=== PATIENT | female | born 1995 | race Caucasian/White ===

== ENCOUNTER 2021-12-22 16:42 | Emergency (ER) | payer BC, SELFPAY ==
[2021-12-22 16:49] VITALS: BP 122/66; PULSE 117; RESP 18; TEMP 38.3; O2SAT 98
--- NOTE | 2021-12-22 17:04 | ED.URI ---
HPI - URI/Sore Throat General Chief Complaint: Upper Respiratory Infection Stated Complaint: nausea and sore throat Time Seen by Provider: 12/22/21 17:07 Source: patient and RN notes reviewed History of Present Illness HPI Narrative: Patient is a 26-year-old female who presents the urgent care with complaints of sore throat, fever, chills. Patient states that it started 2 days ago and now she has had 1 episode of vomiting and nausea. Denies of any known exposures to COVID or strep. States that she has not been vaccinated. No other acute complaints. No acute distress noted. Patient aware of the plan of care. Some parts of this dictation were generated by voice recognition software and may contain typographical and/or grammatical inaccuracies. Related Data Home Medications Medication Instructions Recorded Confirmed flash glucose sensor [FreeStyle 12/22/21 12/22/21 Karina 2 Sensor] insulin pump cartridge [Omnipod 12/22/21 12/22/21 Dash Insulin Pod] Allergies Allergy/AdvReac Type Severity Reaction Status Date / Time No Known Allergies Allergy Unknown Verified 12/22/21 17:21 Review of Systems Review of Systems: CONSTITUTIONAL: Reports a fever, chills, sweats EYES: Denies visual changes, redness, or discharge. ENT: Denies rhinorrhea, congestion, otalgia. Reports of sore throat CARDIOVASCULAR: Denies chest pain, palpitations, or edema. RESPIRATORY: Denies cough or dyspnea. GASTROINTESTINAL: Reports of nausea with one episode of vomiting GENITOURINARY: Denies dysuria or hematuria. SKIN: Denies rash or itching. MUSCULOSKELETAL: Denies back pain, joint pain, or myalgia. NEUROLOGIC: Denies headache, numbness, or weakness. All other systems reviewed are negative, except as documented in HPI. [facility] Past Medical History Medical History (Updated 12/22/21 @ 17:32 by JULIO Quach) Musculoskeletal disorder Surgical History Surgical History History of orthopedic surgery lt knee Social History Social History Smoking status: Never smoker Second hand tobacco smoke exposure: No Alcohol intake: never Gender identity (if verbalized by the patient): Female Comments At the time of my signature, I reviewed and agree with the nursing past medical, surgical, social, and family history. There is no relevant family history pertinent to the patient complaint. Exam Narrative: GENERAL: This is a well-nourished, well-developed patient, in no apparent distress. HEAD: normocephalic, atraumatic. EYES: PERRL. Sclera clear/white. Vision is grossly intact. EARS: External ears normal, auditory canals clear and without drainage, TMs normal without perforation. Hearing grossly intact. NOSE: External nose normal with no obvious nasal discharge, nares without redness, no rhinorrhea. THROAT: Mucous membranes moist. Moderate erythema to the posterior oropharynx with mild bilateral tonsillar edema with exudate to the right NECK: Neck supple, non-tender without lymphadenopathy CARDIOVASCULAR: Regular rate and rhythm without murmurs, gallops, or rubs. RESPIRATORY: Clear to auscultation. Breath sounds equal bilaterally. No wheezes, rales, or rhonchi. SKIN: warm, intact with no suspicious lesions or rash, good texture and turgor. NEURO: awake, alert, and oriented to person, place and time. There were no obvious focal neurologic abnormalities. EXTREMITIES: No clubbing, cyanosis, or edema. Course Course Level of Care: Express Care Visit Vital Signs Vital signs: Vital Signs Temperature 100.9 F H 12/22/21 16:49 Pulse Rate 117 H 12/22/21 16:49 Respiratory Rate 18 12/22/21 16:49 Blood Pressure 122/66 12/22/21 16:49 Pulse Oximetry 98 12/22/21 16:49 Temperature 100.9 F H 12/22/21 16:49 Pulse Rate 117 H 12/22/21 16:49 Respiratory Rate 18 12/22/21 16:49 Blood Pressure 122/66 12/22/21 16:4
[2021-12-24 19:02] LABS: SARS-CoV-2 RNA PCR Positive
== END 2021-12-22 17:35 | disposition home or self-care (01) ==
PROVIDERS: Emergency Provider Nurse Practitioner Family; PCP Family Medicine
DX: U07.1 COVID-19 (principal); E11.9 Type 2 diabetes mellitus without complications; Z96.41 Presence of insulin pump (external) (internal)
CPT/HCPCS: 87081; 87880; 99213; C9803; G0463; U0003; U0005

== ENCOUNTER 2022-09-04 18:11 | Emergency (ER) | payer BC, SELFPAY ==
[2022-09-04 18:17] VITALS: BP 96/57; PULSE 56; RESP 20; O2SAT 97
[2022-09-04 20:09] VITALS: BP 114/65; PULSE 70; RESP 18; O2SAT 100
--- NOTE | 2022-09-04 20:15 | PC.NURSE ---
Reports feeling better and now not bleeding so leaving.
== END 2022-09-04 20:15 | disposition left against medical advice (07) ==
PROVIDERS: PCP Family Medicine
DX: N93.9 Abnormal uterine and vaginal bleeding, unspecified (principal)
CPT/HCPCS: 99199

== ENCOUNTER 2022-09-20 12:33 | Outpatient (CLI) | payer BC, SELFPAY ==
--- NOTE | 2022-09-20 12:49 | ECG_ITS ---
Measurements Intervals [place] Rate: 74 P: 23 KS: 134 QRS: 29 QRSD: 88 T: 28 QT: 364 QTc: 406 Interpretive Statements SINUS RHYTHM NORMAL ELECTROCARDIOGRAM COMPARED TO ECG 10/12/2019 21:12:54 NO SIGNIFICANT CHANGES Electronically Signed On 09-20-2022 14:12:06 CDT by Satya Mariscal M.D.
[2022-09-20 13:14] LABS: Anion Gap 13 mmol/L (8-16); Blood Urea Nitrogen 12 mg/dL (7-17); Carbon Dioxide 28 mmol/L (22-30); Chloride 99 mmol/L (98-107); Estimated Glomerular Filt Rate > 60; Glucose 151 mg/dL (65-110); Potassium 4.1 mmol/L (3.4-5.0); Sodium 140 mmol/L (137-145)
== END 2022-09-20 12:34 | disposition home or self-care (01) ==
LOC: ANHSURGERY 12:37
PROVIDERS: Anesthesiology; PCP Family Medicine; Visit Provider Obstetrics & Gynecology
DX: E10.9 Type 1 diabetes mellitus without complications (principal); Z01.818 Encounter for other preprocedural examination
CPT/HCPCS: 36415; 80048; 93005

== ENCOUNTER 2022-09-25 01:11 | Day surgery (SDC) | payer BC, SELFPAY ==
[2022-09-19 10:51] VITALS: BMI 34.1
--- NOTE | 2022-09-19 11:13 | PC.NURSE ---
Report to the Outpatient Waiting Room, entrance under the green pavilion located off [facility], at time __8:30AM on date __09/25/22 . Planned Procedure Time: __10:30AM . Time changes happen often and if your time is changed the preop area will call you the afternoon before. - You and your visitor will be asked to self-screen and do not enter if you have any COVID symptoms. - We encourage only one visitor and NO visitors under age 16 are allowed at this time. Your visitor will receive communication by the phone number that is given day of service. - The patient visitor is requested to social distance or may leave the building when not with patient due to restrictions. - A mask is required within the hospital. Patients may have clear liquids (water, carbonated beverages, clear teas, apple juice) until 3 hours prior to surgery with a maximum of 20 ounces. - No food from midnight until time of surgery Take the following medications with a SIP of water the morning of surgery: __INSULIN PUMP ON BASAL RATE Medications to discontinue per physician NONE Date to take last dose Please no make-up, nail rwandan, hairspray, perfume, deodorant, or body powder the day of surgery. No jewelry (including any body piercings) or valuables the day of surgery, leave them at home. Please take a shower or bath the night before, or the morning of, surgery with an antibacterial soap. Wear comfortable, loose fitting clothing. Children are encouraged to wear pajamas. - Jewelry must be removed prior to entering the operating room. Rings and piercings that are not removed may be cut off. - The hospital will not accept responsibility for valuables. - Please leave all valuables, including medications, at home the day of surgery. If you are going home after surgery, a licensed car driver must drive you home. - NO public transportation without another adult. - We recommend that an adult stay with you for 24 hours following discharge. - We also recommend that you do not drive, make important decision, drink alcoholic beverages, or take any drugs that were not prescribed by your health care provider for at least 24 hours after your discharge time. Follow any additional instructions given to you from your surgeon. If you or anyone in your household have experienced Covid symptoms in the past week, please notify your surgeon or the nurse liaison at the phone number below for possible testing. Telephone instructions given to ___PATIENT and asked if any additional questions and then verbalized understanding. Patient advised to call surgeon office or pre surgery nurse liaison [phone] if any additional questions.
[2022-09-25] VITALS (9 sets, daily range): BP systolic 94–117; BP diastolic 57–74; PULSE 60–87; RESP 10–16; TEMP 36.2–36.7; O2SAT 96–100
[2022-09-25] MEDS: LACTATED RINGERS 1,000 ML 30 ML IV CONT (09:07)
[2022-09-25] MEDS: ACETAMINOPHEN 500 MG TABLET 1000 MG PO (09:07)
[2022-09-25 09:10] LABS: Glucose Point of Care 123 mg/dl (65-105)
--- NOTE | 2022-09-25 09:22 | WPDANESEPPF ---
Anes - Initial Pre Proc Eval Procedure: Operation Date: 09/25/22 10:30 Proposed Procedures p Excision of Bartholin Gland or Cyst - David Aragon MD Date/Time: 09/25/22 09:22 Surgeon: David Aragon MD Pre Op Diagnosis: Bartholin gland Patient Data Age: 27 Gender: F Height: 1.55 m Weight: 88.5 kg Last Vital Signs Temp 36.7 C 09/25/22 08:49 Pulse 87 09/25/22 08:49 Resp 16 09/25/22 08:49 BP 109/57 L 09/25/22 08:49 Pulse Ox 100 09/25/22 08:49 O2 Del Method Room Air 09/25/22 08:49 Allergies Allergy/AdvReac Type Severity Reaction Status Date / Time No Known Allergies Allergy Unknown Verified 09/25/22 08:40 Home Medications Medication Instructions Recorded Confirmed Type flash glucose sensor (FreeStyle 12/22/21 12/22/21 History Karina 2 Sensor kit) insulin pump cartridge (Omnipod 12/22/21 12/22/21 History Dash Insulin Pod) flash glucose sensor (FreeStyle 09/19/22 09/19/22 History Karina 2 Sensor kit) insulin lispro 100 unit/mL 0.8 unit subcut DIRECTED 09/19/22 09/19/22 History subcutaneous cartridge (Humalog U-100 Insulin) Laboratory Tests 09/25/22 09:06 POC Capillary Glucose 123 mg/dl H mg/dl (65-105) Patient hx anesthesia problems: none Family hx anesthesia problems: none Results Review: All pre-operative results and documents have been reviewed as part of the pre-operative evaluation. [facility] Past Medical History Medical History (System 05/10/22 @ 13:05 by Uvaldo Miller) Musculoskeletal disorder Surgical History Surgical History History of orthopedic surgery lt knee Social History Social History Smoking status: Never smoker Second hand tobacco smoke exposure: No Alcohol intake: current Substance use: never Living arrangements: with family Additional living arrangements comments: SISTER Gender identity (if verbalized by the patient): Female Spiritual care concerns: No Anes - Eval Final PreProcedure Day of Procedure 09/25/22 09:22 Patient weight: obese Heart: regular rate and rhythm Lungs: clear to auscultation Airway: Mallampati scale class II Neurological: alert and oriented Last oral intake: >/= 8 hours ASA classification: III Emergent: no Anesthetic plan: proceed Anesthesia type and monitoring: general LMA and standard monitoring Results Review: All pre-operative results and documents have been reviewed as part of the pre-operative evaluation. Informed Consent: The patient's anesthetic plan and its attendant risks and benefits were discussed with the patient/family/POA. Questions were solicited and answers provided to the satisfaction of the patient/family/POA.
--- NOTE | 2022-09-25 10:07 | WPDHPUPDATE1 ---
History and Physical Update Update Date/Time: 09/25/22 10:07 History and Physical has been reviewed, including an updated exam of the patient. There are NO changes in the patient's condition. Risks, benefits, and alternatives have been discussed and questions answered. Patient agrees to proceed with procedure.
[2022-09-25] MEDS: fentaNYL CITRATE INJ (*CRX) 100 MCG/2 ML VIAL 25 MCG IV PUSH ×8 (11:20→11:55)
--- NOTE | 2022-09-25 11:22 | W.PM.PROC2 ---
Procedure Note - Detailed Date of Procedure 09/25/22 Pre-op Diagnosis Bartholin gland Cyst, vulvar pain Post-op Diagnosis Same Procedure Performed excision of Bartholin's gland and Bartholin's gland cyst Surgeon David Aragon MD Indications vulvar pain Findings 3 cm Bartholin cyst with nodular base Description of Procedure the patient was taken to the operating room. She was prepped and draped in the dorsal lithotomy position. The right vulvar area was injected around the Bartholin's gland cyst. A skin incision was made with the scalpel. It was about 4-5 cm. Using sharp and blunt dissection the vulvar cyst was isolated. Cautery was used to make hemostatic. At the base there was a nodular area. Hemostats were placed behind the nodular area on the pedicle. The mass and cyst were Removed as the pedicle was transected. Sutures were placed around the pedicle. Running lock sutures were placed to fill the defect and made hemostatic at the base. 2 Layers of suture were placed up to the subcutaneous surface. These were 2-0 Vicryl. The skin was closed with interrupted 2-0 Vicryl. It was hemostatic with little skin puckering. Patient tolerated procedure well. She was She was taken to the recovery room in stable condition. Sponge lap needle counts were correct x2. Estimated Blood Loss -75.0 Drains No Packing No Pathology Yes
[2022-09-25] MEDS: HYDROmorphone HCL INJ (*CRX) 1 MG/ML SYR 0.25 MG IV PUSH (12:09)
[2022-09-25 12:24] LABS: Glucose Point of Care 132 mg/dl (65-105)
[2022-09-25] MEDS: oxyCODONE HCL (*CRX) 5 MG TAB IR PO (12:40)
== END 2022-09-25 13:22 | disposition home or self-care (01) ==
PROVIDERS: PCP Family Medicine; Visit Provider Obstetrics & Gynecology
PROC: (CPT 56740; principal; 2022-09-25 10:30)
DX: N75.0 Cyst of Bartholin's gland (principal); E10.9 Type 1 diabetes mellitus without complications; Z79.4 Long term (current) use of insulin; Z96.41 Presence of insulin pump (external) (internal); E66.9 Obesity, unspecified; Z68.36 Body mass index [BMI] 36.0-36.9, adult
CPT/HCPCS: 56740; 82948; 88305; A9270; J1100; J1170; J1885; J2250; J2405; J2704; J3010; J7120

== ENCOUNTER 2023-01-22 10:09 | Emergency (ER) | payer OTHER, MEDICAID, SELFPAY ==
--- NOTE | 2023-01-22 10:21 | ED.EAR ---
HPI - Ear Problem General Chief complaint: Upper Respiratory Infection Stated complaint: Left Ear Pain/Cold Symtoms Source: patient and RN notes reviewed History of Present Illness HPI Narrative: 27-year-old female presents to urgent care with complaints of left ear pain, congestion, facial pressure, a slight headache. Patient reports some nausea but states that is normal throughout this 1st trimester for her. Patient states the symptoms have been going on since yesterday. Denies any fevers, chills, chest pain, shortness of breath, abdominal pain, or dysuria. 1 para 0. Some parts of this dictation were generated by voice recognition software and may contain typographical and/or grammatical inaccuracies. Related Data Home Medications Medication Instructions Recorded Confirmed flash glucose sensor (FreeStyle 12/22/21 12/22/21 Karina 2 Sensor kit) insulin pump cartridge (Omnipod 12/22/21 12/22/21 Dash Insulin Pod) flash glucose sensor (FreeStyle 09/19/22 09/19/22 Karina 2 Sensor kit) insulin lispro 100 unit/mL 0.8 unit subcut DIRECTED 09/19/22 01/22/23 subcutaneous cartridge (Humalog U-100 Insulin) folic acid 1 mg tablet 1 mg DAILY 01/22/23 01/22/23 Allergies Allergy/AdvReac Type Severity Reaction Status Date / Time No Known Allergies Allergy Unknown Verified 01/22/23 10:26 Review of Systems Review of Systems: CONSTITUTIONAL: DENIES FEVER, CHILLS, OR SWEATS. EYES: DENIES VISUAL CHANGES, REDNESS, OR DISCHARGE. ENT: Reports oTALGIA CARDIOVASCULAR: DENIES CHEST PAIN, PALPITATIONS, OR EDEMA. RESPIRATORY: DENIES COUGH OR DYSPNEA. GASTROINTESTINAL: DENIES ABDOMINAL PAIN, NAUSEA, VOMITING, OR DIARRHEA. GENITOURINARY: DENIES DYSURIA OR HEMATURIA. SKIN: DENIES RASH OR ITCHING. MUSCULOSKELETAL: DENIES BACK PAIN, JOINT PAIN, OR MYALGIA. NEUROLOGIC: DENIES HEADACHE, NUMBNESS, OR WEAKNESS. [facility] Past Medical History Medical History (Updated 01/22/23 @ 10:43 by Tracy Vicente APRN) Musculoskeletal disorder Surgical History Surgical History History of orthopedic surgery lt knee Social History Social History Smoking status: Never smoker Second hand tobacco smoke exposure: No Alcohol intake: current Substance use: never Living arrangements: with family Additional living arrangements comments: SISTER Gender identity (if verbalized by the patient): Female Spiritual care concerns: No Comments AT THE TIME OF MY SIGNATURE, I REVIEWED AND AGREE WITH THE NURSING PAST MEDICAL, SURGICAL, SOCIAL, AND FAMILY HISTORY. THERE IS NO RELEVANT FAMILY HISTORY PERTINENT TO THE PATIENT COMPLAINT. Exam Narrative: GENERAL: THIS IS A WELL-NOURISHED, WELL-DEVELOPED PATIENT, IN NO APPARENT DISTRESS. HEAD: NORMOCEPHALIC, ATRAUMATIC. EYES: PERRL. SCLERA CLEAR/WHITE. VISION IS GROSSLY INTACT. EARS: EXTERNAL EARS NORMAL, AUDITORY CANALS CLEAR AND WITHOUT DRAINAGE, TMS NORMAL WITHOUT PERFORATION. HEARING GROSSLY INTACT. NOSE: EXTERNAL NOSE NORMAL WITH NO OBVIOUS NASAL DISCHARGE, NARES WITHOUT REDNESS, NO RHINORRHEA. THROAT: MUCOUS MEMBRANES MOIST, POSTERIOR PHARYNX CLEAR. NECK: NECK SUPPLE, NON-TENDER WITHOUT LYMPHADENOPATHY, MASSES OR THYROMEGALY. CARDIOVASCULAR: REGULAR RATE AND RHYTHM WITHOUT MURMURS, GALLOPS, OR RUBS. RESPIRATORY: CLEAR TO AUSCULTATION. BREATH SOUNDS EQUAL BILATERALLY. NO WHEEZES, RALES, OR RHONCHI. GASTROINTESTINAL: ABDOMEN SOFT, NON-TENDER, NONDISTENDED. BOWEL SOUNDS ARE ACTIVE. NO HEPATO-SPLENOMEGALY, OR PALPABLE MASSES. NO GUARDING. SKIN: WARM, INTACT WITH NO SUSPICIOUS LESIONS OR RASH, GOOD TEXTURE AND TURGOR. NEURO: AWAKE, ALERT, AND ORIENTED TO PERSON, PLACE AND TIME. THERE WERE NO OBVIOUS FOCAL NEUROLOGIC ABNORMALITIES. Course Course Level of Care: Express Care Visit Vital Signs Vital signs: Vital Signs Temperature 97.5 F L 01/22/23 10:52 Pulse Ra
[2023-01-22 10:52] VITALS: BP 134/85; PULSE 92; RESP 18; TEMP 36.4; O2SAT 99
== END 2023-01-22 11:11 | disposition home or self-care (01) ==
PROVIDERS: Emergency Provider Nurse Practitioner Family; PCP Family Medicine
DX: B34.9 Viral infection, unspecified (principal)
CPT/HCPCS: 99213; G0463

== ENCOUNTER 2023-08-17 17:45 | Emergency (ER) | payer OTHER, BC, SELFPAY ==
--- NOTE | ~2023-08-17 | CT_ITS ---
EXAMINATION: CT abdomen pelvis w con DATE: 08/17/2023 20:11 INDICATION: Right lower quadrant abdominal pain and nausea TECHNIQUE: Computed tomography (CT) of the abdomen and pelvis was performed with 100 mL Omnipaque-350 intravenous contrast. Automated exposure control and iterative reconstruction technique were employe d. The dose-length product was 1236.99 mGy-cm. COMPARISON: 08/10/2019 FINDINGS: Lung bases are clear. Heart size is normal. No pericardial or pleural effusion. Liver, gallbladder, p ancreas, bilateral adrenal glands and kidneys are normal. Mild splenomegaly measuring 13.8 cm maximal length. Bladder is normal. Normal appendix. No bowel obstruction. Again seen is diffuse fatty infilt ration of the colonic wall likely related to body habitus. 1.6 similar peripherally enhancing corpus luteum cyst in the right ovary. Left adnexa is unremarkable. There is a section scar at the anterior lower uterine segment. Small dystrophic calcification within the endometrial complex. There is an ill-defined posterior margin to the endometrial complex at the fundus with decreased attenuatio n/enhancement extending into the myometrium which is nonspecific but could be seen with focal adenomy osis. Negligible likely physiologic free fluid in the deep pelvis. No abscess or free intraperitoneal gas. No pathologically enlarged abdominal or pelvic lymphadenopathy. Mild degenerative skeletal langford ges in the visualized spine and bilateral sacroiliac joints. Prominent Schmorl's node along the super ior endplate of L2 with a few smaller Schmorl's nodes in the visualized lower thoracic spine. IMPRESSION: 1. 1.6 cm corpus luteum cyst in the right ovary. No other acute intra-abdominal/pelvic process. Speci fically the appendix is normal. 2. Nonspecific mild splenomegaly as well as chronic mild diffuse fatty infiltration of the colonic wa ll, both findings which can be related to body habitus. 3. Poorly defined posterior margin of the endometrial complex at the fundus with irregular region of decreased attenuation/enhancement extending into the more posterior myometrium suspicious for focal a denomyosis. Could consider further evaluation with pelvic ultrasound or MRI. Reviewed, dictated and finalized at location A. IMPRESSION: 1. 1.6 cm corpus luteum cyst in the right ovary. No other acute intra-abdominal /pelvic process. Specifically the appendix is normal. 2. Nonspecific mild splenomegaly as well as chronic mild diffuse fatty infiltra tion of the colonic wall, both findings which can be related to body habitus. 3. Poorly defined posterior margin of the endometrial complex at the fundus wit h irregular region of decreased attenuation/enhancement extending into the more posterior myometrium suspicious for focal adenomyosis. Could consider further evaluation with pelvic ultrasound or MRI.
--- NOTE | ~2023-08-17 | US_ITS ---
EXAMINATION: US pelvic complete DATE: 08/17/2023 21:13 INDICATION: Pelvic pain. TECHNIQUE: Multiple transabdominal sonographic images of the pelvis were obtained. COMPARISON: CT dated 08/17/2023 FINDINGS: The uterus measures 11.6 x 3.9 x 7.2 cm. The endometrial complex measures 6-7 mm in thickness. The r ight ovary measures 3.8 x 2.9 x 4.5 cm. The left ovary measures 3.2 x 1.9 x 3.2 cm. Vascular flow is identified in both ovaries on color Doppler. There is no free fluid in the pelvis. IMPRESSION: 1. Normal pelvic ultrasound with vascular flow identified in both ovaries on color Doppler. The findi ngs identified on prior CT including a right ovarian corpus luteum cyst, section scar at the anterior lower uterine segment and irregular appearance to the myometrium at the posterior fundus ar e all not visualized on the current study likely due to transabdominal technique. Reviewed, dictated and finalized at location A. IMPRESSION: 1. Normal pelvic ultrasound with vascular flow identified in both ovaries on co kassidy Doppler. The findings identified on prior CT including a right ovarian allan us luteum cyst, section scar at the anterior lower uterine segment and irregular appearance to the myometrium at the posterior fundus are all not vis ualized on the current study likely due to transabdominal technique.
[2023-08-17 17:57] VITALS: BP 103/68; PULSE 87; RESP 16; TEMP 36.4; O2SAT 100
[2023-08-17 18:13] LABS: Appearance Urine Cloudy (Clear); Bilirubin Urine Negative (Negative); Blood Urine 2+ (Negative); Color Urine Yellow (Yellow); Glucose Urine UA Negative (Negative); Ketones Urine Trace mg/dL (Negative); Leukocyte Esterase Ur 1+ LEU/UL (Negative); Nitrate Urine Negative (Negative); Protein Urine Negative (Negative); Specific Grav Ur 1.023 (1.001-1.035); Urobilinogen Urine 0.2 mg/dL (<2.0); pH Urine 5.5 (5.0-9.0)
[2023-08-17 18:18] LABS: Bacteria Urine None Seen /hpf; Non Pathogenic Casts 0-2; Squamous Epithelial Cell Urine Moderate /hpf (Few)
[2023-08-17 18:22] LABS: Add Urine Microscopic? YES
[2023-08-17 19:23] LABS: Pregnancy On Board Control Positive; Urine Pregnancy Test Negative
[2023-08-17 19:30] VITALS: BP 108/68; PULSE 78; RESP 15; O2SAT 100
[2023-08-17 19:33] LABS: Basophils Percent Auto 0.6 % (0.2-1.2); Eosinophils Absolute Auto 0.1 K/mm3 (0-0.3); Eosinophils Percent Auto 1.9 % (0-4.4); Hematocrit 39.5 % (37.0-47.0); Immature Granulocyte Absolute 0.01 K/mm3 (0.00-0.031); Immature Granulocyte Percent A 0.2 % (0-0.5); Lymphocytes Absolute Auto 1.99 K/mm3 (0.9-3.2); Lymphocytes Percent Auto 30.8 % (18.3-44.2); Mean Corpuscular HGB Conc 32.9 g/dl (32-36); Mean Corpuscular Hemoglobin 28.9 pg (26-34); Mean Corpuscular Volume 87.8 fl (80-100); Mean Platelet Volume 9.9 fl (7.4-10.4); Monocytes Absolute Auto 0.3 K/mm3 (0.1-0.6); Monocytes Percent Auto 4.2 % (2.6-8.5); Neutrophils Percent Auto 62.3 % (45.5-73.1); Platelet Count Result 262 k/mm3 (150-375); Red Cell Distribution Width 13.8 % (11.5-14.5); White Blood Count 6.5 K/mm3 (4.5-10.0)
[2023-08-17 19:44] LABS: Alanine Aminotransferase 19 U/L (6-35); Albumin Level 4.3 g/dL (3.5-5.1); Alkaline Phosphatase 88 U/L (38-126); Anion Gap 5 mmol/L (8-16); Aspartate Amino Transferase 23 U/L (14-36); Bilirubin,Total 0.5 mg/dL (0.2-1.3); Blood Urea Nitrogen 11 mg/dL (7-17); Calcium 9.2 mg/dL (8.4-10.2); Carbon Dioxide 29 mmol/L (22-30); Chloride 103 mmol/L (98-107); Estimated CRCL calculation 88 ml/min; Estimated Glomerular Filt Rate > 60; Glucose 119 mg/dL (65-110); Lipase 52 U/L (23-300); Potassium 3.8 mmol/L (3.4-5.0); Sodium 137 mmol/L (137-145)
--- NOTE | 2023-08-17 20:12 | ED.ABDPAIN ---
HPI - Abdominal Pain General Chief Complaint: Abdominal Pain Stated Complaint: ab pain Time Seen by Provider: 08/17/23 19:12 Source: patient Mode of arrival: ambulatory Limitations: no limitations History of Present Illness HPI narrative: Patient is a 27 y/o female who presents to the ED with c/o right lower abdominal pain. Patient reports she woke up around 5 AM this morning with pain in her right lower abdomen. She states pain has been constant since then, progressively worsening. She states pain is worse with movement, twisting, walking, coughing. She reports mild nausea and increased flatulence, denies vomiting. Denies diarrhea, constipation. Denies fever. Denies urinary complaints. She has not taken anything for pain. Patient is 5 weeks status post with twin gestation. She has been doing well since the surgery. She reports some persistent discharge that has been normal for her, denies abnormal bleeding. Related Data Home Medications Medication Instructions Recorded Confirmed flash glucose sensor (FreeStyle 12/22/21 12/22/21 Karina 2 Sensor kit) insulin pump cartridge (Omnipod 12/22/21 12/22/21 Dash Insulin Pod) flash glucose sensor (FreeStyle 09/19/22 09/19/22 Karina 2 Sensor kit) insulin lispro 100 unit/mL 0.8 unit subcut DIRECTED 09/19/22 01/22/23 subcutaneous cartridge (Humalog U-100 Insulin) folic acid 1 mg tablet 1 mg DAILY 01/22/23 01/22/23 Allergies Allergy/AdvReac Type Severity Reaction Status Date / Time No Known Allergies Allergy Unknown Verified 08/17/23 19:27 Review of Systems Review of Systems: CONSTITUTIONAL: Denies fever, chills, or sweats. CARDIOVASCULAR: Denies chest pain. RESPIRATORY: Denies dyspnea. GASTROINTESTINAL: See HPI. GENITOURINARY: Denies dysuria or hematuria. MUSCULOSKELETAL: Denies back pain, joint pain, or myalgia. NEUROLOGIC: Denies headache, numbness, or weakness. All systems reviewed & are unremarkable except as noted in HPI and below PMFSH Past Medical History Medical History Musculoskeletal disorder Surgical History Surgical History History of section History of orthopedic surgery lt knee Social History Social History Smoking status: Never smoker Second hand tobacco smoke exposure: No Alcohol intake: current Substance use: never Living arrangements: with family Additional living arrangements comments: SISTER Gender identity (if verbalized by the patient): Female Spiritual care concerns: No Exam Narrative: GENERAL: Well appearing, morbidly obese with BMI of 40.1, non-toxic, in no acute distress. HEAD: Normocephalic, atraumatic. NECK: Supple. No adenopathy, no masses. RESPIRATORY: Airway patent, respirations nonlabored. Clear to auscultation bilaterally, no rales, rhonchi, wheezing. CARDIOVASCULAR: Regular rate and rhythm without murmurs, rubs, or gallops. Radial pulses 2+ and equal bilaterally. ABDOMINAL: Soft, focal tenderness in right lower abdomen, mildly in suprapubic region, nondistended, no hepatosplenomegaly. Normoactive BS. MUSCULOSKELETAL: Moves all extremities. Strength/ROM intact without gross deformities. SKIN: Warm, dry, normal color. No rashes. NEURO: A&O X3. Speech clear. Cranial nerves II-XII grossly intact. Steady gait. No ataxic movements. PSYCHIATRIC: Appropriate mood and affect. Normal interaction. Course Vital Signs Vital signs: Vital Signs Temperature 97.6 F 08/17/23 17:57 Pulse Rate 87 08/17/23 17:57 Respiratory Rate 16 08/17/23 17:57 Blood Pressure 103/68 08/17/23 17:57 Pulse Oximetry 100 08/17/23 17:57 Oxygen Delivery Room Air 08/17/23 17:57 Temperature 97.6 F 08/17/23 17:57 Pulse Rate 70 08/17/23 20:44 Respiratory Rate 15 08/17/23 20:44 Blood P
[2023-08-17] MEDS: SODIUM CHLORIDE 0.9% IV 1,000 ML 999 ML IV CONT (20:23)
[2023-08-17 20:44] VITALS: BP 94/58; PULSE 70; RESP 15; O2SAT 100
[2023-08-17 22:06] VITALS: BP 104/78; PULSE 74; RESP 15; O2SAT 100
== END 2023-08-17 22:07 | disposition home or self-care (01) ==
PROVIDERS: Emergency Medicine; Emergency Provider Physician Assistant; PCP Family Medicine
DX: O99.893 Other specified diseases and conditions complicating puerperium (principal); N83.11 Corpus luteum cyst of right ovary; O86.22 Infection of bladder following delivery; N30.01 Acute cystitis with hematuria; Z79.4 Long term (current) use of insulin
CPT/HCPCS: 36415; 74177; 76856; 80053; 81001; 81025; 83690; 85025; 87086; 87088; 87147; 96360; 99284; J7030; Q9967

== ENCOUNTER 2023-09-18 11:14 | Outpatient (CLI) | payer OTHER, BC, SELFPAY ==
--- NOTE | ~2023-09-18 | XR_ITS ---
Right wrist Technique: PA and lateral views were obtained. Clinical History: Pain Findings: No acute fracture or dislocation is seen. Osseous alignment is anatomic. Joint spaces are p reserved. Soft tissues are unremarkable. Impression: Unremarkable right wrist radiographs. Reviewed, dictated and finalized at location M. Impression: Unremarkable right wrist radiographs.
--- NOTE | ~2023-09-18 | XR_ITS ---
Right Hand Technique: PA and lateral views were obtained. Clinical History: Pain Findings: No acute fracture or dislocation is seen. Osseous alignment is anatomic. Joint spaces are p reserved. Soft tissues are unremarkable. Impression: Unremarkable right hand. Reviewed, dictated and finalized at location M. Impression: Unremarkable right hand.
== END 2023-09-18 11:15 | disposition home or self-care (01) ==
LOC: ANHBWCIMG 11:19
PROVIDERS: PCP Nurse Practitioner Adult Health; Visit Provider Nurse Practitioner Adult Health
DX: M25.531 Pain in right wrist (principal); M79.641 Pain in right hand
CPT/HCPCS: 73100; 73120

== ENCOUNTER 2023-10-29 12:02 | Outpatient (CLI) | payer OTHER, BC, SELFPAY ==
[2023-10-29 19:38] LABS: Appearance Urine Clear (Clear); Bacteria Urine Rare /hpf; Bilirubin Urine Negative (Negative); Blood Urine Negative (Negative); Color Urine Dark Yellow (Yellow); Glucose Urine UA 1+ mg/dL (Negative); Ketones Urine Negative (Negative); Leukocyte Esterase Ur Negative LEU/UL (NEGATIVE); Nitrate Urine Positive (Negative); Non Pathogenic Casts 0-2; Protein Urine Negative (Negative); RBC Urine 0-2 /hpf (0-2); Specific Grav Ur 1.028 (1.001-1.035); Squamous Epithelial Cell Urine Occasional /hpf (Few); pH Urine 5.5 (5.0-9.0)
[2023-10-29 19:44] LABS: Add Urine Microscopic? YES
== END 2023-10-29 12:03 | disposition home or self-care (01) ==
LOC: ANHBWCLAB 12:04
PROVIDERS: PCP Nurse Practitioner Adult Health; Visit Provider Nurse Practitioner Adult Health
DX: R39.9 Unspecified symptoms and signs involving the genitourinary system (principal)
CPT/HCPCS: 81001

== ENCOUNTER 2023-11-16 16:14 | Emergency (ER) | payer OTHER, BC, SELFPAY ==
--- NOTE | ~2023-11-16 | CT_ITS ---
EXAMINATION: CT abdomen pelvis w con DATE: 11/16/2023 18:06 INDICATION: lower bilateral abdomen pain TECHNIQUE: Computed tomography (CT) of the abdomen and pelvis was performed with 100 mL Omnipaque-350 intravenous contrast. Automated exposure control and iterative reconstruction technique were employe d. The dose-length product was 1175.70 mGy-cm. COMPARISON: 08/17/2023. FINDINGS: Lower thorax: Unremarkable Liver: Enlarged. Biliary/Gallbladder: Gallbladder is partially collapsed. No bile duct dilation. Pancreas: No mass or duct dilation. Spleen: Mildly enlarged. Adrenals:No mass. Kidneys: No suspicious mass, obstructing stone, or hydronephrosis. GI tract: No small or large bowel dilation. Normal appendix. Mesentery/Peritoneum: No ascites, mass, or free air. Retroperitoneum: No mass. Pelvis: Urinary bladder is mostly empty, with mild surrounding stranding. Normal bilateral ovaries. A nteverted, retroflexed uterus with scar. The indistinct endometrial margin described in the prior study is not seen has resolved. Small volume free pelvic fluid, within physiologic range. Soft Tissues: Soft tissues and body wall unremarkable. Bones: No acute osseous finding. IMPRESSION: Suggestion of urinary bladder inflammatory changes can be seen with cystitis, noting that examination is limited by lack of bladder distention Otherwise, no acute abdominopelvic process detected. Chronic hepatosplenomegaly. Reviewed, dictated and finalized at location K. EFACTION AND REGASIFICATION HELPER IMPRESSION: Suggestion of urinary bladder inflammatory changes can be seen with cystitis, n oting that examination is limited by lack of bladder distention Otherwise, no acute abdominopelvic process detected. Chronic hepatosplenomegaly.
[2023-11-16 16:16] VITALS: BP 139/85; PULSE 91; RESP 18; TEMP 36.6; O2SAT 100
--- NOTE | 2023-11-16 16:28 | ED.ABDPAIN ---
HPI - Abdominal Pain General Chief Complaint: Abdominal Pain Stated Complaint: low abd pain Time Seen by Provider: 11/16/23 16:28 Source: patient Mode of arrival: ambulatory Limitations: no limitations History of Present Illness HPI narrative: Liudmila is a 28-year-old female patient presenting to the ER today with complaints of lower abdominal pain x1 day. She reports that she did notice a sticky vaginal discharge this morning when picking up her kid. She denies any fever or chills. Rates her pain currently a 7/10. No associated nausea, vomiting, or diarrhea. States she is feeling pressure her lower abdomen and into her uterus. Denies any urinary symptoms. Last bowel movement was today and normal for her. Denies any blood in her stool. Last menstrual period was 6 weeks ago. She denies any concern for are sexually transmitted infection. She is diabetic. States she had a traumatic with twins in July. Related Data Home Medications Medication Instructions Recorded Confirmed insulin pump cartridge (Omnipod 12/22/21 12/22/21 Dash Insulin Pod) flash glucose sensor (FreeStyle 09/19/22 09/19/22 Karina 2 Sensor kit) Novolog .Route 09/18/23 09/18/23 Allergies Allergy/AdvReac Type Severity Reaction Status Date / Time No Known Allergies Allergy Unknown Verified 10/06/23 15:05 Review of Systems Review of Systems: Pertinent positives per HPI. Patient denies any fever, chills, rash, headache, visual changes, dizziness, cough, runny nose, sore throat, shortness of breath, chest pain, palpitations, nausea, vomiting, diarrhea, constipation, or any urinary issues. [facility] Past Medical History Medical History Musculoskeletal disorder Surgical History Surgical History History of section History of orthopedic surgery lt knee Social History Social History Smoking status: Never smoker Second hand tobacco smoke exposure: No Alcohol intake: current Substance use: never Lack of Transportation: No Lack of Food: Never True Current Housing: I Have Housing Concerned About Future Housing: No Difficulty Paying Gas/Electric Bills: No Difficulty Paying for Meds: No Currently Unemployed: No Education: High School Diploma/GED Difficulty w/ Childcare or Family Care: No Living arrangements: with family Additional living arrangements comments: SISTER Occupation/Education: occupation Additional occupation/education comments: [employer] Gender identity (if verbalized by the patient): Female Spiritual care concerns: No Comments At the time of my signature, I reviewed and agree with the nursing past medical, surgical, social, and family history. There is no relevant family history pertinent to the patient complaint. Exam Narrative: General: Well-developed, well nourished, in no apparent distress. Head: Normocephalic, atraumatic. Cardio: Regular rate and rhythm, s1 and s2 normal, no murmur appreciated. Resp: Clear to auscultation bilaterally, no rhonchi, rales, wheezing or rubs. Abdomen: Soft, pliable, bowel sounds present in all quadrants, tender to palpation over the bilateral lower abdomen and pelvis, no organomegly, no CVAT tenderness. Course Course Emergency Course: Portions of this record may have been created with voice recognition software. Vital Signs Vital signs: Vital Signs Temperature 36.6 C 11/16/23 16:16 Pulse Rate 91 11/16/23 16:16 Respiratory Rate 18 11/16/23 16:16 Blood Pressure 139/85 11/16/23 16:16 Pulse Oximetry 100 11/16/23 16:16 Oxygen Delivery Room Air 11/16/23 16:16 Temperature 36.2 C L 11/16/23 17:38 Pulse Rate 79 11/16/23 17:38 Respiratory Rate 16 11/16/23 17:38 Blood Pressure 105/59 L 11/16/23 17:38 Pulse Oximetry 100
[2023-11-16 17:18] LABS: Appearance Urine Cloudy (Clear); Bacteria Urine 1+ /hpf; Bilirubin Urine Negative (Negative); Blood Urine Negative (Negative); Color Urine Yellow (Yellow); Glucose Urine UA 3+ mg/dL (Negative); Ketones Urine Trace mg/dL (Negative); Leukocyte Esterase Ur Negative LEU/UL (Negative); Nitrate Urine Negative (Negative); Non Pathogenic Casts 0-2; Protein Urine Negative (Negative); RBC Urine 0-2 /hpf (0-2); Squamous Epithelial Cell Urine Occasional /hpf (Few); WBC Urine 0-5 /hpf
[2023-11-16 17:20] LABS: Specific Grav Ur 1.043 (1.001-1.035)
[2023-11-16 17:21] LABS: Add Urine Microscopic? YES
[2023-11-16 17:23] LABS: Basophils Percent Auto 0.5 % (0.2-1.2); Eosinophils Absolute Auto 0.1 K/mm3 (0-0.3); Eosinophils Percent Auto 0.8 % (0-4.4); Hematocrit 39.9 % (37.0-47.0); Hemoglobin 13.2 g/dL (12.0-15.0); Immature Granulocyte Absolute 0.02 K/mm3 (0.00-0.031); Immature Granulocyte Percent A 0.2 % (0-0.5); Lymphocytes Percent Auto 17.6 % (18.3-44.2); Mean Corpuscular HGB Conc 33.1 g/dl (32-36); Mean Corpuscular Hemoglobin 29.3 pg (26-34); Mean Corpuscular Volume 88.7 fl (80-100); Monocytes Absolute Auto 0.3 K/mm3 (0.1-0.6); Neutrophils Absolute Auto 6.5 K/mm3 (1.3-6.7); Neutrophils Percent Auto 76.9 % (45.5-73.1); Platelet Count Result 296 k/mm3 (150-375); Red Cell Distribution Width 12.3 % (11.5-14.5); White Blood Count 8.5 K/mm3 (4.5-10.0)
[2023-11-16 17:38] VITALS: BP 105/59; PULSE 79; RESP 16; TEMP 36.2; O2SAT 100
[2023-11-16 17:58] LABS: Alanine Aminotransferase 12 U/L (6-35); Albumin Level 3.9 g/dL (3.5-5.1); Alkaline Phosphatase 78 U/L (38-126); Anion Gap 6 mmol/L (8-16); Aspartate Amino Transferase 18 U/L (14-36); Bilirubin,Total 0.5 mg/dL (0.2-1.3); Blood Urea Nitrogen 15 mg/dL (7-17); Carbon Dioxide 25 mmol/L (22-30); Chloride 105 mmol/L (98-107); Estimated CRCL calculation 104 ml/min; Estimated Glomerular Filt Rate > 60; Glucose 208 mg/dL (65-110); Lipase 39 U/L (23-300); Potassium 3.8 mmol/L (3.4-5.0); Sodium 136 mmol/L (137-145)
[2023-11-16 18:04] LABS: Estimated CRCL calculation 82 ml/min; Estimated Glomerular Filt Rate > 60
[2023-11-16 19:24] VITALS: BP 112/66; PULSE 88; RESP 16; O2SAT 100
[2023-11-16 20:17] LABS: Trichomonas Vag PCR NOT DETECTED (NOT DETECTE)
[2023-11-16 20:39] LABS: Chlamydia trachomatis NOT DETECTED (NOT DETECTE); Neisseria gonorrhoeae PCR NOT DETECTED (NOT DETECTE)
== END 2023-11-16 19:26 | disposition home or self-care (01) ==
PROVIDERS: Emergency Provider Nurse Practitioner Family; PCP Nurse Practitioner Adult Health
DX: R10.32 Left lower quadrant pain (principal); R10.31 Right lower quadrant pain; R10.2 Pelvic and perineal pain; N89.8 Other specified noninflammatory disorders of vagina
CPT/HCPCS: 36415; 74177; 80053; 81001; 81025; 83690; 85025; 87070; 87491; 87591; 87661; 99284; Q9967

== ENCOUNTER 2023-12-29 15:00 | Outpatient (RCR) | payer OTHER, SELFPAY ==
--- NOTE | 2023-12-26 13:19 | OTOPEVAL1 ---
Assessment and note entered by Nilesh Roberson, LAKEISHA/Nighat, CHT Evaluation Information Diagnosis Radial styloid tenosynovitis, right UE Onset ~5 months Subjective Information Patient is right handed. Reports onset of symptoms about the time her twins were born, about 5 months ago. She has received 2 injections. Reports her symptoms are worst in the mornings or with quick wrist/thumb movements. Reported Pain Level Pain Score 1: Self Report Additional Pain Score Comments Pain increases to 4/10 with lifting her children, with end range of motion of the wrist, with pushing through an extended wrist. Assessment OT Clinical Summary Patient referred to OT with dx of radial styloid tenosynovitis of the right wrist. She presents with pain, decreased flexibility, and weakness, which restricts her ability to complete ADLs and childcare. Skilled OT indicated to reduce pain, improve strength, and facilitate return to pain- free use. Plan of Care Interventions Therapeutic Exercise,Manual Therapy,Therapeutic Activities,Hot Pack/Cold Pack,Check Out for Orthotic/Pr,Ultrasound,Paraffin OT Services Indicated Yes Treatment Frequency and 1x/week for 4 visits Duration These treatments will address the objective and functional deficits as defined above. The patient will be advanced safely and appropriately in order for the patient to progress towards his/her prior level of function. Additional exercises will be introduced and as well as a comprehensive home exercise program upon discharge, if needed, ?to ensure carryover of functional gains achieved in the clinic. This treatment plan has been reviewed and agreement upon by the patient.
--- NOTE | 2024-01-05 13:09 | PCOTNOTE ---
Patient called & cancelled scheduled appointment this date.
--- NOTE | 2024-01-28 08:11 | OTOPDC ---
Assessment and note entered by Nilesh Roberson, LAKEISHA/Nighat, CHT OT Discharge Notification 01/28/24 OT Clinical Summary Patient referred to OT with 1st dorsal compartment tenosynovitis. She cancelled her appointments and did not reschedule. Per EMR, patient is being scheduled for surgery for this diagnosis. Discharging OT.
== END 2024-01-28 11:27 | disposition home or self-care (01) ==
LOC: ANHOT 15:00
PROVIDERS: PCP Nurse Practitioner Adult Health; Visit Provider Plastic Surgery
DX: M65.4 Radial styloid tenosynovitis [de Quervain] (principal)
CPT/HCPCS: 97018; 97110; 97165; 99199

== ENCOUNTER 2024-01-21 08:09 | Outpatient (CLI) | payer OTHER, SELFPAY ==
--- NOTE | ~2024-01-21 | US_ITS ---
EXAMINATION: US abdomen limited DATE: 01/21/2024 09:09 INDICATION: Splenomegaly, left upper quadrant pain TECHNIQUE: Multiple grayscale and Doppler ultrasound images of the abdomen were obtained. COMPARISON: CT, 11/16/2023 FINDINGS: Bowel gas obscures visualization of the pancreas. The visualized portions of the pancreas a re unremarkable. The liver is normal with normal echogenicity and echotexture. No surface nodularity. Normal hepatopetal flow in the main portal vein. The gallbladder is normal with no abnormal wall thi ckening, pericholecystic fluid or stones. The normal common bile duct measures 4 mm. There was no son ographic Espinoza sign. There is stable mild enlargement of the spleen which measures up to 13.9 cm. IMPRESSION: 1. Unchanged mild splenomegaly. Reviewed, dictated and finalized at location B. TH CARE ANALYST
== END 2024-01-21 08:10 | disposition home or self-care (01) ==
PROVIDERS: PCP Nurse Practitioner Adult Health; Visit Provider Nurse Practitioner Adult Health
DX: R16.1 Splenomegaly, not elsewhere classified (principal)
CPT/HCPCS: 76705

== ENCOUNTER 2024-03-23 14:28 | Outpatient (CLI) | payer OTHER, BC, SELFPAY ==
[2024-03-23 15:06] LABS: Basophils Percent Auto 0.3 % (0.2-1.2); Eosinophils Absolute Auto 0.1 K/mm3 (0-0.3); Eosinophils Percent Auto 0.8 % (0-4.4); Immature Granulocyte Absolute 0.05 K/mm3 (0.00-0.031); Immature Granulocyte Percent A 0.4 % (0-0.5); Lymphocytes Absolute Auto 1.45 K/mm3 (0.9-3.2); Lymphocytes Percent Auto 11.8 % (18.3-44.2); Mean Corpuscular HGB Conc 34.1 g/dl (32-36); Mean Corpuscular Hemoglobin 29.8 pg (26-34); Mean Corpuscular Volume 87.2 fl (80-100); Mean Platelet Volume 9.8 fl (7.4-10.4); Monocytes Absolute Auto 0.4 K/mm3 (0.1-0.6); Monocytes Percent Auto 3.6 % (2.6-8.5); Neutrophils Absolute Auto 10.2 K/mm3 (1.3-6.7); Neutrophils Percent Auto 83.1 % (45.5-73.1); Platelet Count Result 343 k/mm3 (150-375); Red Cell Distribution Width 11.9 % (11.5-14.5); White Blood Count 12.3 K/mm3 (4.5-10.0)
[2024-03-23 16:58] LABS: Alanine Aminotransferase 14 U/L (6-35); Albumin Level 4.6 g/dL (3.5-5.1); Alkaline Phosphatase 100 U/L (38-126); Anion Gap 8 mmol/L (4-12); Aspartate Amino Transferase 20 U/L (14-36); Bilirubin,Total 0.7 mg/dL (0.2-1.3); Blood Urea Nitrogen 12 mg/dL (7-17); Calcium 9.6 mg/dL (8.4-10.2); Carbon Dioxide 25 mmol/L (22-30); Chloride 102 mmol/L (98-107); Estimated Glomerular Filt Rate > 60; Glucose 304 mg/dL (65-110); Lactate Dehydrogenase 204 U/L (120-246); Potassium 4.3 mmol/L (3.4-5.0); Sodium 135 mmol/L (137-145)
[2024-03-23 17:01] LABS: Monoscreen Negative (Negative); Negative Monotest Control Negative (Negative); Positive Monotest Control Positive (Positive)
[2024-03-25 12:48] LABS: Angiotensin Converting Enzyme 48 U/L (9-67)
== END 2024-03-23 14:29 | disposition home or self-care (01) ==
LOC: ANHLAB 14:49
PROVIDERS: PCP Nurse Practitioner Adult Health; Visit Provider Internal Medicine Hematology & Oncology
DX: R16.1 Splenomegaly, not elsewhere classified (principal)
CPT/HCPCS: 36415; 80053; 82164; 83615; 85025; 86308; 88184

== ENCOUNTER 2024-04-22 13:02 | Emergency (ER) | payer OTHER, BC, SELFPAY ==
[2024-04-22 13:06] VITALS: BP 132/72; PULSE 85; RESP 20; TEMP 36.6; O2SAT 100
[2024-04-22 13:16] VITALS: BP 132/72; PULSE 85; RESP 20; TEMP 36.6; O2SAT 100
--- NOTE | 2024-04-22 13:18 | ED.GENADULT ---
HPI - General Adult General Chief complaint: Extremity Injury, Upper Stated complaint: Right Wrist popped/pain Time Seen by Provider: 04/22/24 13:20 Source: patient Mode of arrival: ambulatory Limitations: no limitations History of Present Illness HPI narrative: 28 year old female presents to [facility] care with complaints of picking up baby yesterday and felt her right wrist pop and having pain up side of radial aspect of her wrist with some burning pain to hand. Patient reports that she has been seeing hand specialist for a few months for problems with pain to radial wrist to thumb area. Patient reports that she called her hand doctor but had not received call back so she came to clinic and then received call back after she got here. Patient is type one diabetic on insulin pump. Patient reports that she has received injections done PT and also has splint she is suppose to wear. Patient has been using cold therapy and taking Ibuprofen for her discomfort. Patient is right hand dominant.Patient has appointment to see hand specialist May 19. MD complaint: felt pop on radial aspect of right wrist with burning pain. Onset (ago): day(s) (1) Location: right and upper extremity (wrist and thumb) Severity scale (1-10): 7 Quality: burning and aching Pain Consistency: constant Treatments prior to arrival: NSAID and cold therapy Related Data Home Medications Medication Instructions Recorded Confirmed blood-glucose transmitter (Dexcom 04/22/24 04/22/24 G6 Transmitter device) insulin aspart U-100 100 unit/mL subcut DIRECTED 04/22/24 subcutaneous solution (Novolog U-100 Insulin aspart) insulin pump cart,cont inf,BT 04/22/24 04/22/24 (Omnipod Dash Pods (Gen 4) subcutaneous cartridge) Allergies Allergy/AdvReac Type Severity Reaction Status Date / Time No Known Allergies Allergy Unknown Verified 04/22/24 13:16 Review of Systems Review of Systems: CONSTITUTIONAL: Denies fever, chills, or sweats. EYES: Denies visual changes, redness, or discharge. ENT: Denies rhinorrhea, congestion, sore throat, or otalgia. CARDIOVASCULAR: Denies chest pain, palpitations, or edema. RESPIRATORY: Denies cough or dyspnea. GASTROINTESTINAL: Denies abdominal pain, nausea, vomiting, or diarrhea. GENITOURINARY: Denies dysuria or hematuria. SKIN: Denies rash or itching. MUSCULOSKELETAL: Denies back pain,positive for pain to her right radial wrist and right thumb area , or myalgia. NEUROLOGIC: Denies headache, numbness, or weakness. PSYCHIATRIC: Denies anxiety or depression. All systems reviewed & are unremarkable except as noted in HPI and below PMFSH Past Medical History Medical History Diabetes mellitus type 1, uncomplicated, on ocean transportation intermediary insulin pump Musculoskeletal disorder Surgical History Surgical History History of section History of orthopedic surgery lt knee Social History Social History Smoking status: Never smoker Second hand tobacco smoke exposure: No Alcohol intake: current Substance use: never Substance use type: does not use Lack of Transportation: No Lack of Food: Never True Current Housing: I Have Housing Concerned About Future Housing: No Difficulty Paying Gas/Electric Bills: No Difficulty Paying for Meds: No Currently Unemployed: No Education: High School Diploma/GED Difficulty w/ Childcare or Family Care: No Living arrangements: with family Additional living arrangements comments: SISTER Occupation/Education: occupation Additional occupation/education comments: [employer] Gender identity (if verbalized by the patient): Female Spiritual care concerns: No Comments At time of signature, agree with nursing past medical, surgical, social and family history. There is no relevant family history radha
== END 2024-04-22 13:40 | disposition home or self-care (01) ==
PROVIDERS: Emergency Provider Registered Nurse; PCP Nurse Practitioner Adult Health
DX: M65.4 Radial styloid tenosynovitis [de Quervain] (principal); E10.9 Type 1 diabetes mellitus without complications; Z79.4 Long term (current) use of insulin; Z96.41 Presence of insulin pump (external) (internal)
CPT/HCPCS: 99213; G0463

== ENCOUNTER 2024-05-19 01:08 | Day surgery (SDC) | payer OTHER, BC, SELFPAY ==
[2024-02-05 14:24] VITALS: BMI 41.5
--- NOTE | 2024-02-05 14:33 | PC.NURSE ---
Report to the Outpatient Waiting Room, entrance under the green pavilion located off [facility], at time 1200 on date 02/12/2024. Planned Procedure Time: 2:00p.m. Time changes happen often and if your time is changed the preop area will call you the afternoon before. - You and your visitor will be asked to self-screen and do not enter if you have any COVID symptoms. - A mask is optional within the hospital at this time. Patients may have clear liquids (water, carbonated beverages, clear teas, apple juice) until 8 hours prior to surgery (6am) with a maximum of 20 ounces. - No food from midnight until time of surgery Take the following medications with a SIP of water the morning of surgery:Continue insulin pump, call pre-op at [phone] morning of surgery if low blood sugar DO NOT STOP ANY OF YOUR OTHER PRESCRIPTION MEDICATIONS PRIOR TO SURGERY ?EXCEPT THE FOLLOWING Medications to discontinue per physician N/A Date to take last dose N/A Please no make-up, nail macedonian, hairspray, perfume, deodorant, or body powder the day of surgery. No jewelry (including any body piercings) or valuables the day of surgery, leave them at home. Please take a shower or bath the night before, or the morning of, surgery with an antibacterial soap. Wear comfortable, loose fitting clothing. Children are encouraged to wear pajamas. - Jewelry must be removed prior to entering the operating room. Rings and piercings that are not removed may be cut off. - The hospital will not accept responsibility for valuables. - Please leave all valuables, including medications, at home the day of surgery. If you are going home after surgery, a licensed xm1 tank driver must drive you home. - NO public transportation without another adult if you receive anesthesia. - We recommend that an adult stay with you for 24 hours following discharge. - We also recommend that you do not drive, make important decision, drink alcoholic beverages, or take any drugs that were not prescribed by your health care provider for at least 24 hours after your discharge time. Follow any additional instructions given to you from your surgeon. If you or anyone in your household have experienced Covid symptoms in the past week, please notify your surgeon or the nurse liaison at the phone number below for possible testing. Telephone instructions given to Liudmila Burger and asked if any additional questions and then verbalized understanding. Patient advised to call surgeon office or pre surgery nurse liaison [phone] if any additional questions.
[2024-05-13 13:09] VITALS: BMI 35.9
--- NOTE | 2024-05-13 13:17 | SUR.PREOP ---
Report to the Outpatient Waiting Room, entrance under the green pavilion located off [facility], at time 0800 on date 05/19/24. Planned Procedure Time:1000. Time changes happen often and if your time is changed the preop area will call you the afternoon before. - You and your visitor will be asked to self-screen and do not enter if you have any COVID symptoms. - A mask is optional within the hospital at this time. Patients may have clear liquids (water, carbonated beverages, clear teas, apple juice) until 3 hours prior to surgery with a maximum of 20 ounces. - No food from midnight until time of surgery - Infants may have breast milk until 4 hours before surgery, infant formula 6 hours prior to surgery. - Children will be allowed to drink immediately following surgery. If applicable, please bring a bottle or sippy cup to assist with drinking. Juice, water, soda, and popsicles are readily available. For infants on formula, please bring formula the day of surgery. Pacifiers are allowed. Take the following medications with a SIP of water the morning of surgery: N/A DO NOT STOP ANY OF YOUR OTHER PRESCRIPTION MEDICATIONS PRIOR TO SURGERY ?EXCEPT THE FOLLOWING Medications to discontinue per physician PT HAS INSULIN PUMP, WILL KEEP BASIL THE SAME, MAY LOWER BASIL RATE BY 0.1 OR 0.2 IF NEEDED. HOLDING ALL REST INSULIN Date to take last dose N/A Please no make-up, nail montenegrin, hairspray, perfume, deodorant, or body powder the day of surgery. No jewelry (including any body piercings) or valuables the day of surgery, leave them at home. Please take a shower or bath the night before, or the morning of, surgery with an antibacterial soap. Wear comfortable, loose fitting clothing. Children are encouraged to wear pajamas. - Jewelry must be removed prior to entering the operating room. Rings and piercings that are not removed may be cut off. - The hospital will not accept responsibility for valuables. - Please leave all valuables, including medications, at home the day of surgery. If you are going home after surgery, a licensed commercial collections driver must drive you home. - NO public transportation without another adult if you receive anesthesia. - We recommend that an adult stay with you for 24 hours following discharge. - We also recommend that you do not drive, make important decision, drink alcoholic beverages, or take any drugs that were not prescribed by your health care provider for at least 24 hours after your discharge time. Follow any additional instructions given to you from your surgeon. If you or anyone in your household have experienced Covid symptoms in the past week, please notify your surgeon or the nurse liaison at the phone number below for possible testing. Telephone instructions given to BOBBY GILLETTE and asked if any additional questions and then verbalized understanding. Patient advised to call surgeon office or pre surgery nurse liaison [phone] if any additional questions.
--- NOTE | 2024-05-19 06:53 | WPDHPUPDATE1 ---
History and Physical Update Update Date/Time: 05/19/24 06:53 Patient seen and examined in pre-operative holding area. No interval change in medical history or symptoms. Patient recalls previous discussion of benefits and alternatives to procedure. Continues to desire to proceed with right first extensor compartment release . Reviewed procedure, post-op expectations and risks including but not limited to bleeding, infection, injury to tendon/nerve/vessel, decreased hand function, stiffness, RSD, no change or worsening of symptoms. I discussed the possible use of assistants and their participation in the case. Patient stated understanding and signed the consent form wishing to proceed.
--- NOTE | 2024-05-19 06:53 | W.PM.PROC2 ---
Procedure Note - Detailed Date of Procedure 05/19/24 Pre-op Diagnosis right de quervains Post-op Diagnosis Same Procedure Performed right first extensor compartment release Surgeon Gloria Raygoza MD Anesthesia MAC Description of Procedure INFORMED CONSENT: The patient was seen and examined and marked in the pre-op area.? The patient signed the consent form. PROCEDURE IN DETAIL:The patient taken back to OR on the stretcher in supine position. Time out performed with anesthesia, surgeon and staff agreeing on patient's name site and surgery to be performed SCDs were placed on the lower extremities and inflated. A tourniquet was placed on {right} upper extremity and antibiotics given IV After anesthesia administered sedation I injected {4}cc 1%lido with epi and 0.5% marcaine plain at the operative site The?{right upper extremity}?was prepped and draped in sterile fashion the??{right upper extremity} was? exsanguinated with Esmarch bandage and tourniquet inflated to 250mmHg I proceeded with making a longitudinal incision over the right 1st extensor compartment through skin and dermis with a 15 blade scalpel. Littler scissors were used to spread the subcutaneous tissue down to the extensor tendon sheath. The dorsal branch of the radial sensory nerve was identified and protected throughout the procedure and retracted dorsally. After identifying the extensor sheath I proceeded with making an incision on the dorsal aspect of it with a 15 blade scalpel. Littler scissors were used to spread above and below it proximally and distally and I completed the transection entirely revelaing the APL was in a subsheath. This sheath was also incised completely on its dorsal aspect. Ragnell retractors used withdrawal the APL and the EPB tendon for inspection they were free of masses. There was a small amount of tenosynovitis on the APL tendon which was excised with littler scissors. I irrigated with normal saline and closed with 4-0 Monocryl for dermis and subcuticular closure. A dressing of Dermabond, 4x4, rakesh, and an ileana bandage was applied after the tourniquet was let down noting the hand was warm and well perfused. The patient was then awaken from anesthesia and transferred to the recovery room in stable condition.? Complications - none EBL- 0cc Disposition - home in stable conditions AM Billing Surgery - Charge Forward: Surgery Billing ([id number])
[2024-05-19] MEDS: LACTATED RINGERS 1,000 ML 30 ML IV CONT (08:30)
--- NOTE | 2024-05-19 08:31 | WPDANESEPPF ---
Anes - Initial Pre Proc Eval Procedure: Operation Date: 05/19/24 10:00 Proposed Procedures p Right First Extensor Compartment Release - Gloria Raygoza MD Date/Time: 05/19/24 08:31 Surgeon: Gloria Raygoza MD Pre Op Diagnosis: Radial Styloid Tenosynovitis Patient Data Age: 28 Gender: F Height: 1.55 m Weight: 86.18 kg Allergies Allergy/AdvReac Type Severity Reaction Status Date / Time No Known Allergies Allergy Unknown Verified 05/13/24 13:30 Home Medications Medication Instructions Recorded Confirmed Type blood-glucose transmitter (Dexcom 04/22/24 04/22/24 History G6 Transmitter device) insulin aspart U-100 100 unit/mL See Rx Instructions .Route .COMPLEX 04/22/24 05/13/24 History subcutaneous solution (Novolog U-100 Insulin aspart) insulin pump cart,cont inf,BT 04/22/24 04/22/24 History (Omnipod Dash Pods (Gen 4) subcutaneous cartridge) meloxicam 7.5 mg tablet 7.5 mg PO DAILY #30 tabs 04/27/24 05/13/24 Rx tramadol 50 mg tablet 50 mg PO Q6H PRN pain #12 tabs 05/19/24 Rx Patient hx anesthesia problems: none Family hx anesthesia problems: none Results Review: All pre-operative results and documents have been reviewed as part of the pre-operative evaluation. [facility] Past Medical History Medical History Diabetes mellitus type 1, uncomplicated, on computer terminal operator insulin pump Musculoskeletal disorder Surgical History Surgical History History of section History of orthopedic surgery lt knee Social History Social History Smoking status: Never smoker Second hand tobacco smoke exposure: No Alcohol intake: current Substance use: never Substance use type: does not use Lack of Transportation: No Lack of Food: Never True Current Housing: I Have Housing Concerned About Future Housing: No Difficulty Paying Gas/Electric Bills: No Difficulty Paying for Meds: No Currently Unemployed: No Education: High School Diploma/GED Difficulty w/ Childcare or Family Care: No Living arrangements: with family Additional living arrangements comments: SISTER Occupation/Education: occupation Additional occupation/education comments: [employer] Gender identity (if verbalized by the patient): Female Spiritual care concerns: No Anes - Eval Final PreProcedure Day of Procedure 05/19/24 08:31 Patient weight: obese Heart: regular rate and rhythm Lungs: clear to auscultation Airway: Mallampati scale class II Neurological: alert and oriented Last oral intake: >/= 8 hours ASA classification: III Emergent: no Anesthetic plan: proceed Anesthesia type and monitoring: general GIVS and standard monitoring Results Review: All pre-operative results and documents have been reviewed as part of the pre-operative evaluation. Informed Consent: The patient's anesthetic plan and its attendant risks and benefits were discussed with the patient/family/POA. Questions were solicited and answers provided to the satisfaction of the patient/family/POA.
[2024-05-19 08:41] LABS: Glucose Point of Care 181 mg/dl (65-105)
[2024-05-19 08:45] VITALS: BP 111/68; PULSE 81; RESP 16; TEMP 36.6; O2SAT 100
[2024-05-19] MEDS: LIDOCAINE HCL 1% LOCAL INJ 20 ML VIAL 10 ML INFILTRATE (09:10)
[2024-05-19] MEDS: ceFAZolin 2 GM/D5W 50 ML 2 GM/50 ML BAG IVPB (09:28)
[2024-05-19 09:52] VITALS: BP 91/49; PULSE 63; RESP 14; O2SAT 100
[2024-05-19 10:16] LABS: Glucose Point of Care 115 mg/dl (65-105)
[2024-05-19 10:20] VITALS: BP 86/59; PULSE 54
[2024-05-19 10:45] VITALS: BP 119/57; PULSE 62
[2024-05-19] MEDS: oxyCODONE HCL (*CRX) 5 MG TAB IR PO (10:51)
[2024-05-19 11:15] VITALS: BP 124/51; PULSE 53
== END 2024-05-19 11:21 | disposition home or self-care (01) ==
PROVIDERS: PCP Nurse Practitioner Adult Health; Visit Provider Plastic Surgery
PROC: (CPT 25000; principal; 2024-05-19 10:00)
DX: M65.4 Radial styloid tenosynovitis [de Quervain] (principal); E10.9 Type 1 diabetes mellitus without complications; Z79.4 Long term (current) use of insulin; Z96.41 Presence of insulin pump (external) (internal); E66.9 Obesity, unspecified; Z68.39 Body mass index [BMI] 39.0-39.9, adult
CPT/HCPCS: 25000; 82948; A9270; J0690; J2250; J2405; J2704; J3010; J7120

== ENCOUNTER 2024-08-17 16:26 | Emergency (ER) | payer OTHER, BC, SELFPAY ==
[2024-08-17 16:29] VITALS: BP 119/73; PULSE 84; RESP 20; TEMP 36.4; O2SAT 100
[2024-08-17 16:34] LABS: Glucose Point of Care 328 mg/dl (65-105)
[2024-08-17 17:16] VITALS: BP 130/93; PULSE 88; RESP 15; O2SAT 99
--- NOTE | 2024-08-17 17:16 | ED.RECABL ---
HPI - Recheck/Abnormal Lab/Rx General Chief Complaint: Recheck/Abnormal Lab/Rx Stated Complaint: BS >400 DMI, out of insulin Time Seen by Provider: 08/17/24 16:45 Source: patient Mode of arrival: ambulatory Limitations: no limitations History of Present Illness HPI narrative: This is a 28-year-old female with T1 dm who presents to the ED for chief complaint of elevated blood sugars. She recently ran out of in her insulin. She had an issue with the pharmacy and with insurance. States that the prescription that her test driver just wrote is not covered for some reason and she cannot afford the insulin. States that she is in between endocrinologists and is awaiting a new appointment with an test driver here. She endorses some fatigue headache and nausea but no vomiting, fevers, chills, urinary symptoms, chest pain, shortness of breath, cough. Uses insulin pump with NovoLog. Related Data Home Medications Medication Instructions Recorded Confirmed blood-glucose transmitter (Dexcom 04/22/24 04/22/24 G6 Transmitter device) insulin pump cart,cont inf,BT 04/22/24 04/22/24 (Omnipod Dash Pods (Gen 4) subcutaneous cartridge) Allergies Allergy/AdvReac Type Severity Reaction Status Date / Time No Known Allergies Allergy Unknown Verified 08/17/24 17:16 Review of Systems Review of Systems: All systems as dictated in HPI [facility] Past Medical History Medical History Diabetes mellitus type 1, uncomplicated, on termite control servicer insulin pump Musculoskeletal disorder Surgical History Surgical History History of section History of orthopedic surgery lt knee Social History Social History Smoking status: Never smoker Second hand tobacco smoke exposure: No Alcohol intake: current Substance use: never Substance use type: does not use Lack of Transportation: No Lack of Food: Never True Current Housing: I Have Housing Concerned About Future Housing: No Difficulty Paying Gas/Electric Bills: No Difficulty Paying for Meds: No Currently Unemployed: No Education: High School Diploma/GED Difficulty w/ Childcare or Family Care: No Living arrangements: with family Additional living arrangements comments: SISTER Occupation/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 HEAD: Normocephalic, atraumatic. EYES: PERRLA and EOMI. ENT: Nares clear, no rhinorrhea or epistaxis. Mucous membranes moist. Oropharynx without tonsillar hypertrophy exudate or other lesions. NECK: Supple. No adenopathy or masses. CHEST: No respiratory distress. Clear to auscultation. No wheezes rales or rhonchi HEART: Regular rate and rhythm. No murmur heard. Normal peripheral pulses. ABDOMEN: Soft, nontender, nondistended, normal active bowel sounds. MSK: Normal range of motion. No edema. SKIN: Warm, dry, no rash. NEURO: Alert and oriented x4. No focal deficits. PSYCH: Normal mood and affect. Course Vital Signs Vital signs: Vital Signs Temperature 97.5 F L 08/17/24 16:29 Pulse Rate 84 08/17/24 16:29 Respiratory Rate 20 08/17/24 16:29 Blood Pressure 119/73 08/17/24 16:29 Pulse Oximetry 100 08/17/24 16:29 Oxygen Delivery Room Air 08/17/24 16:29 Temperature 97.5 F L 08/17/24 16:29 Pulse Rate 88 08/17/24 17:16 Respiratory Rate 15 08/17/24 17:16 Blood Pressure 130/93 H 08/17/24 17:16 Pulse Oximetry 99 08/17/24 17:16 Oxygen Delivery Room Air 08/17/24 16:29 MDM - Recheck/Abnormal Lab/Rx MDM Narrative Medical decision making narrative: this is a 28-year-old female who presents to t
[2024-08-17 17:19] LABS: Add Urine Microscopic? YES; Appearance Urine Clear (Clear); Bacteria Urine Rare /hpf; Bilirubin Urine Negative (Negative); Blood Urine 2+ (Negative); Color Urine Yellow (Yellow); Glucose Urine UA 3+ mg/dL (Negative); Ketones Urine 1+ mg/dL (Negative); Leukocyte Esterase Ur Negative LEU/UL (Negative); Nitrate Urine Negative (Negative); Non Pathogenic Casts 0-2; Protein Urine Negative (Negative); Specific Grav Ur 1.039 (1.001-1.035); Squamous Epithelial Cell Urine None Seen /hpf (Few); Urobilinogen Urine 0.2 mg/dL (<2.0); WBC Urine 0-5 /hpf (0-3); pH Urine 5.5 (5.0-9.0)
[2024-08-17] MEDS: LACTATED RINGERS 1,000 ML 999 ML IV CONT ×2 (17:27→17:32)
[2024-08-17] MEDS: INSULIN HUMAN REGULAR (*BKC) 100 UNITS/ML 6 UNITS IV PUSH (17:30)
[2024-08-17 17:31] LABS: Basophils Percent Auto 0.3 % (0.2-1.2); Eosinophils Absolute Auto 0.1 K/mm3 (0-0.3); Hematocrit 41.3 % (37.0-47.0); Immature Granulocyte Absolute 0.02 K/mm3 (0.00-0.031); Immature Granulocyte Percent A 0.3 % (0-0.5); Lymphocytes Absolute Auto 1.92 K/mm3 (0.9-3.2); Lymphocytes Percent Auto 24.7 % (18.3-44.2); Mean Corpuscular HGB Conc 33.9 g/dl (32-36); Mean Corpuscular Hemoglobin 29.5 pg (26-34); Mean Corpuscular Volume 86.9 fl (80-100); Monocytes Absolute Auto 0.3 K/mm3 (0.1-0.6); Monocytes Percent Auto 3.5 % (2.6-8.5); Neutrophils Absolute Auto 5.5 K/mm3 (1.3-6.7); Neutrophils Percent Auto 70.2 % (45.5-73.1); Platelet Count Result 368 k/mm3 (150-375); Red Blood Count 4.75 M/mm3 (4.2-5.4); Red Cell Distribution Width 11.9 % (11.5-14.5); White Blood Count 7.8 K/mm3 (4.5-10.0)
[2024-08-17 17:46] LABS: Beta-Hydroxybutyrate/Acetoacetate 0.38 mmol/L (0.02-0.27)
[2024-08-17 17:54] LABS: Alanine Aminotransferase 15 U/L (6-35); Albumin Level 4.7 g/dL (3.5-5.1); Alkaline Phosphatase 100 U/L (38-126); Anion Gap 13 mmol/L (4-12); Aspartate Amino Transferase 22 U/L (14-36); Bilirubin,Total 0.5 mg/dL (0.2-1.3); Blood Urea Nitrogen 12 mg/dL (7-17); Calcium 8.9 mg/dL (8.4-10.2); Carbon Dioxide 25 mmol/L (22-30); Chloride 97 mmol/L (98-107); Estimated CRCL calculation 99 ml/min; Estimated Glomerular Filt Rate > 60; Glucose 400 mg/dL (65-110); Sodium 135 mmol/L (137-145)
[2024-08-17 18:34] LABS: Glucose Point of Care 292 mg/dl (65-105)
--- NOTE | 2024-08-17 18:40 | PCCCNOTE ---
1842-Assisted the pt with a Goodrx coupon for insulin Lispro at the cost of 19.63. Verified with Davi at [facility] pharmacy the rx is ready for p/u. The pt and provider is aware of the rx status.-cali.
[2024-08-17 19:03] VITALS: BP 123/85; PULSE 81; RESP 16; TEMP 36.6; O2SAT 98
== END 2024-08-17 19:06 | disposition home or self-care (01) ==
PROVIDERS: Emergency Provider Physician Assistant; PCP Nurse Practitioner Adult Health
DX: E10.65 Type 1 diabetes mellitus with hyperglycemia (principal); T38.3X6A Underdosing of insulin and oral hypoglycemic [antidiabetic] drugs, initial encounter; Z91.120 Patient's intentional underdosing of medication regimen due to financial hardship; Z79.4 Long term (current) use of insulin; Z96.41 Presence of insulin pump (external) (internal)
CPT/HCPCS: 36415; 80053; 81001; 82010; 82948; 85025; 96361; 96374; 99284; J1815; J7120

== ENCOUNTER 2024-09-21 11:58 | Emergency (ER) | payer OTHER, BC, SELFPAY ==
--- NOTE | ~2024-09-21 | CT_ITS ---
CT brain wo con Ordering provider: Chayo Ge MD History: 29 years Female with . LT side headache, neck throbbing, facial tingle . Comparison: None. Technique: CT of the head without contrast. Radiation reduction technique utilized. The dose-length product was 605.33 mGy-cm. FINDINGS: BRAIN PARENCHYMA AND CSF SPACES: No midline shift, mass effect or hemorrhage. The brain parenchyma a nd CSF spaces are otherwise normal. VISUALIZED PARANASAL SINUSES: Well aerated. MASTOIDS: Well aerated. BONES: The bones appear intact. SOFT TISSUES: Visualized nasopharynx is normal. Superficial soft tissues are normal. IMPRESSION: No acute intracranial findings. Reviewed, dictated and finalized at location A.
[2024-09-21 11:59] VITALS: BP 115/84; PULSE 91; RESP 20; TEMP 36.1; O2SAT 99
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
[2024-09-21 12:09] VITALS: BP 115/84; PULSE 91; RESP 20; TEMP 36.1; O2SAT 99
[2024-09-21 12:31] LABS: Basophils Absolute Auto 0.03 K/mm3 (0.00-0.10); Basophils Percent Auto 0.3 % (0.0-1.0); Eosinophils Absolute Auto 0.08 K/mm3 (0.02-0.50); Eosinophils Percent Auto 0.9 % (1.0-6.0); Hemoglobin 12.9 g/dL (12.0-15.0); Immature Granulocyte Absolute 0.03 K/mm3 (0.00-0.00); Immature Granulocyte Percent A 0.3 % (0.0-0.0); Lymphocytes Absolute Auto 1.53 K/mm3 (1.10-4.50); Lymphocytes Percent Auto 17.1 % (18.0-42.0); Mean Corpuscular HGB Conc 33.9 g/dL (32-36); Mean Corpuscular Hemoglobin 29.5 pg (27.0-31.0); Mean Platelet Volume 9.9 fl (9.2-11.8); Monocytes Absolute Auto 0.32 K/mm3 (0.10-0.90); Monocytes Percent Auto 3.6 % (2.0-11.0); Neutrophils Absolute Auto 6.94 K/mm3 (1.70-7.20); Neutrophils Percent Auto 77.8 % (50.0-70.0); Platelet Count Result 320 K/mm3 (150-420); Red Blood Count 4.37 M/mm3 (4.20-5.40); White Blood Count 8.9 K/mm3 (4.8-10.8)
[2024-09-21 12:45] LABS: Alanine Aminotransferase 19 U/L (14-59); Albumin Level 3.3 g/dL (3.4-5.0); Alkaline Phosphatase 90 U/L (46-116); Anion Gap 9 mmol/L (4-12); Aspartate Amino Transferase 12 U/L (15-37); Bilirubin,Total 0.3 mg/dL (0.00-1.00); Blood Urea Nitrogen 11 mg/dL (7-18); Calcium 8.7 mg/dL (8.5-10.1); Carbon Dioxide 28 mmol/L (21-32); Chloride 102 mmol/L (98-108); Estimated CRCL calculation 89 ml/min; Estimated Glomerular Filt Rate > 60; Glucose 196 mg/dL (70-99); Osmolality Calculated 292 mOsm/kg (285-295); Potassium 4.1 mmol/L (3.5-5.1); Sodium 139 mmol/L (136-145); Total Protein 6.6 g/dL (6.4-8.2)
--- NOTE | 2024-09-21 12:58 | PC.NURSE ---
PT IS SITTING ON STRETCHER TEXTING ON CELL PHONE WITHOUT DISTRESS . PT IS AWAITING RESULTS. PT DENIES ANY NEEDS OR COMPLAINTS. VSS PER MONITOR. WILL CONTINUE TO MONITOR.
[2024-09-21 12:59] VITALS: BP 105/65; PULSE 72
[2024-09-21 13:04] LABS: Add Urine Microscopic? NO; Appearance Urine Clear (Clear); Bilirubin Urine Negative (Negative); Blood Urine Negative (Negative); Color Urine Light Yellow (Yellow); Glucose Urine UA 3+ (Negative); Ketones Urine Negative (Negative); Leukocyte Esterase Ur Negative LEU/UL (Negative); Nitrate Urine Negative (Negative); Protein Urine Negative (Negative); Specific Grav Ur 1.025 (1.010-1.020); Urobilinogen Urine 0.2 mg/dL (0.2-1.0)
[2024-09-21 13:16] VITALS: BP 95/57; PULSE 82
[2024-09-21 13:25] VITALS: BP 95/57; PULSE 82; RESP 18; O2SAT 98
== END 2024-09-21 13:25 | disposition home or self-care (01) ==
PROVIDERS: Emergency Provider Emergency Medicine; PCP Nurse Practitioner Adult Health
DX: R51.9 Headache, unspecified (principal); M54.2 Cervicalgia; E10.9 Type 1 diabetes mellitus without complications; Z79.4 Long term (current) use of insulin
CPT/HCPCS: 36415; 70450; 80053; 81003; 85025; 99284

== ENCOUNTER 2025-02-01 10:45 | Emergency (ER) | payer BC, SELFPAY ==
[2025-02-01 10:53] VITALS: BP 119/75; PULSE 89; RESP 20; TEMP 37.1; O2SAT 99
[2025-02-01 11:01] VITALS: BP 112/75; PULSE 98; RESP 20; TEMP 36.6; O2SAT 99
--- NOTE | 2025-02-01 12:19 | ED.URI ---
HPI - URI/Sore Throat General Chief Complaint: Upper Respiratory Infection Stated Complaint: headache/aches Time Seen by Provider: 02/01/25 12:16 Source: patient, RN notes reviewed and old records reviewed Mode of arrival: ambulatory Limitations: no limitations History of Present Illness HPI Narrative: 29 year old female who presents [facility] with complaints of headache, body aches, nausea with some congestion and cough since yesterday. Patient reports that she has been exposed to her sister who recently tested positive for the flu. Patient reports that she has been taking Tylenol for her body aches and took Oscillococcinum. Patient is Type I diabetic and on insulin pump with Dexcom monitor with present blood sugar 150. MD elicited complaint: cough, rhinorrhea, nasal congestion and other (body aches) Pertinent past history: other (Type I diabetic) Onset (ago): day(s) (day 2 of symptoms) Pain scale (0-10): 6 Description of mucous: clear Able to tolerate fluids by mouth: Yes Treatments prior to arrival: acetaminophen Related Data Allergies Allergy/AdvReac Type Severity Reaction Status Date / Time No Known Allergies Allergy Unknown Verified 02/01/25 11:07 Review of Systems Review of Systems: CONSTITUTIONAL: reports malaise, no chills, sweats, or fever. EYES: Denies visual changes, redness, or discharge. ENT: Reports rhinorrhea, congestion, sinus pain, no otalgia and no sore throat. CARDIOVASCULAR: Denies chest pain, palpitations, or edema. RESPIRATORY: Reports cough.? Denies dyspnea. GASTROINTESTINAL: Denies abdominal pain, nausea, vomiting, diarrhea SKIN: Denies rash or itching. MUSCULOSKELETAL: Reports myalgia. NEUROLOGIC: Reports headache. 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 pump Musculoskeletal disorder Surgical History Surgical History History of section History of orthopedic surgery lt knee Family History Family History Mother Thyroid disease Social History Social History Smoking status: Never smoker Second hand tobacco smoke exposure: No Alcohol intake: current Substance use: never Substance use type: does not use Lack of Transportation: No Lack of Food: Never True Current Housing: I Have Housing Concerned About Future Housing: No Difficulty Paying Gas/Electric Bills: No Difficulty Paying for Meds: No Currently Unemployed: No Education: High School Diploma/GED Difficulty w/ Childcare or Family Care: No Living arrangements: with family Additional living arrangements comments: SISTER Occupation/Education: occupation Additional occupation/education comments: [employer] Gender identity (if verbalized by the patient): Female Spiritual care concerns: No Comments At time of signature, agree with nursing past medical, surgical, social and family history. There is no relevant family history pertinent to the presenting complaint Exam Narrative: GENERAL: Well-appearing, well-nourished, and in no acute distress. HEAD: Normocephalic EYES: PERRLA, conjunctivae clear ENT: Nares clear, turbinates edematous and erythematous, clear discharge. Mucous membranes moist. TM pearly palmer with dull light reflex bilaterally; no tragal tenderness. Oropharynx erythematous without lesions. Tonsils not enlarged and without exudate, no drooling, no hoarseness, no trismus, uvula midline.post nasal drainage NECK: Supple. No lymphadenopathy CHEST: Clear to auscultation, breath sounds equal. No wheezing, rhonchi, rales, or stridor. No respiratory distress, speaks in full sentences.cough noted SAO2 99% on room air HEART: Regular rate and rhythm. No murmur heard. SKIN: Warm, dry, no rash. NEURO: Alert and oriented x3. PSYCH: Normal mood and affect Course Course Emergency Course: Patient is aware of diagnosis, understands and agrees to treatment plan.? Anticipatory guidance given.? Patient agrees to follow-up as directed and is aware of reasons to seek care at the emergency department. Portions of this record may have been created with voice recognition software Level of Care: Express Care Visit Vital Signs Vital signs: Vital Signs Temperature 37.1 C 02/01/25 10:53 Pulse Rate 89 02/01/25 10:53 Respiratory Rate 20 02/01/25 10:53 Blood Pressure 119/75 02/01/25 10:53 Pulse Oximetry 99 02/01/25 10:53 Oxygen Delivery Room Air 02/01/25 10:53 Temperature 36.6 C 02/01/25 11:01 Pulse Rate 98 02/01/25 11:01 Respiratory Rate 20 02/01/25 11:01 Blood Pressure 112/75 02/01/25 11:01 Pulse Oximetry 99 02/01/25 11:01 Oxygen Delivery Room Air 02/01/25 11:01 Reviewed MDM - URI/Sore Throat MDM Narrative Medical decision making narrative: Differential diagnosis considered: Franco virus, strep pharyngitis, allergic rhinitis, upper respiratory tract infection, sinusitis, rhinosinusitis, nasopharyngitis. viral pharyngitis, otitis media, otitis externa, pneumonia, bronchitis, viral cough syndrome, viral syndrome, and influenza.? Exam findings show no acute concerns or changes; patient is non-toxic appearing and is in no distress.? Patient is appropriate for outpatient treatment and follow-up. Medical Records Attestation: I reviewed the patient's medical records. Lab Data Attestation: I reviewed the patient's lab results. Lab results narrative: influenza A negative, Influenza B negative Labs: Lab Results 02/01/25 Range/Units 12:22 POC Influenza A Ag Negative (Negative) POC Influenza B Ag Negative (Negative) Critical Care Time Critical Care Time Critical Care Time: No Discharge Plan Discharge Clinical Impression: Flu-like symptoms Patient Disposition: Home, Self-Care Condition: Stable Instructions: Antibiotic Form, Upper Respiratory Infection (ED) Additional Instructions: Increase fluids especially juices and water Qoyo-jqn-nxdqhie cough and cold medicine of your choice for your symptoms Zyrtec Claritin or Siena daily Tylenol or ibuprofen for any fever pain heat to the face 20-30 minutes 4-6 times a day for pain Salt water gargles, throat lozenges or throat sprays as desired You need to retest for influenza tomorrow If your symptoms persist, change or worsen significantly before you can contact your personal physician then please, without delay, go to the emergency department for further evaluation. Follow-up with PCP in 7-10 days or sooner if needed Monitor for fevers Patient Language: Algerian Prescriptions: No Action Gvoke HypoPen 2-Pack 1 mg/0.2 mL auto-injector 1 mg subcut ONCE Qty: 0.4 4RF Rx Instructions: may repeat once after 15 minutes if no response (DME) urine glucose-ketones test Strip See Rx Instructions .ROUTE .MEDSUPPLY Qty: 50 0RF Rx Instructions: As directed glucose [Dex4 Glucose] 4 gram tablet,chewable 16 g PO Q15M PRN (Reason: hypoglycemia) Qty: 60 1RF Rx Instructions: until symptoms of low blood sugar are controlled (DME) Omnipod Dash Pods (Gen 4) Cartridge SUBCUT Qty: 60 1RF Rx Instructions: Use to administer insulin change every 72 hours insulin aspart U-100 [Novolog U-100 Insulin aspart] 100 unit/mL solution 80 unit continuous subcutaneous infusion DAILY Qty: 80 1RF (DME) Dexcom G6 Sensor Device See Rx Instructions .ROUTE .MEDSUPPLY Qty: 9 4RF Rx Instructions: Use to Monitor Glucose ; Change every 10 days (DME) Dexcom G6 Transmitter Device See Rx Instructions .ROUTE .MEDSUPPLY Qty: 1 3RF Rx Instructions: Use to monitor glucose; change every 90 days Follow-up/Referrals: Anjum,Stephanie Vegas MD [Primary Care Provider] - Stand Alone Forms: Work/School Release IP Time of Disposition: 12:31 Quality Showell Coma Scale Eyes: Open Verbal: Oriented and Alert Motor: Follows Commands Showell Coma Total Score: 15
[2025-02-01 12:26] LABS: EDINFLUASCREEN Negative (Negative); EDINFLUBSCREEN Negative (Negative)
== END 2025-02-01 12:33 | disposition home or self-care (01) ==
PROVIDERS: Emergency Provider Registered Nurse; PCP Family Medicine
DX: J11.1 Influenza due to unidentified influenza virus with other respiratory manifestations (principal); Z20.89 Contact with and (suspected) exposure to other communicable diseases; E10.9 Type 1 diabetes mellitus without complications; Z96.41 Presence of insulin pump (external) (internal); Z79.4 Long term (current) use of insulin
CPT/HCPCS: 87804; 99212; G0463

== ENCOUNTER 2025-08-01 19:27 | Emergency (ER) | payer BC, SELFPAY ==
[2025-08-01 19:28] VITALS: BP 121/80; PULSE 97; RESP 18; TEMP 36.4; O2SAT 99
--- OUTSIDE RECORDS SUMMARY | 2025-08-01 19:29 | XMS_ITS | Clinical Summary ---
Author Organization [facility] Address [address] [place] [address] Care Team Providers Care Dumpling Machine Operator Name Role Phone Unavailable Primary Care Provider Unavailabl e Allergies No known active allergies Medications NovoLOG U-100 Insulin aspart 100 unit/mL vial INJECT BY INSULIN PUMP ONLY INSTRUCTED UP TO 150 UNITS PER DAY Active Active Problems No known active problems Family History Medical History Relation Name Comments No Known Problems Brother No Known Problems Child 1 No Known Problems Child 2 No Known Problems Father Blood Disorder Mother No Known Problems Sister Relation Name Status Comments Brother Alive Child 1 Alive Child 2 Alive Father Alive Mother Alive Sister Alive Social History Tobacco Use Types Packs/Day Years Used Date Smoking Tobacco: Never Smokeless Tobacco: Never Tobacco Cessation:Counseling Given: Not Answered Alcohol Use Standard Drinks/Week Comments Yes 0 (1 standard drink = 0.6 oz pur e alcohol) socially Comments Unknown Sex and Gender Information Value Date Recorded Sex Assigned at Not on file Legal Sex Female 10:23 AM EXTRUSION FORMER Gender Identity Not on file Sexual Orientation Not on file Last Filed Vital Signs Vital Sign Reading Time Taken Comments Blood Pressure 117/70 04/08/2024 2:03 PM CDT Pulse 93 04/08/2024 2:03 PM CDT Temperature 36.2 C (97.1 F) 04/08/2024 2:03 PM CDT Respiratory Rate 14 04/08/2024 2:03 PM CDT Oxygen Saturation 97% 04/08/2024 2:03 PM CDT Inhaled Oxygen Concentration - - Weight 98.4 kg (217 lb) 04/08/2024 2:03 PM CDT Height 154.9 cm (5' 1) 03/02/2024 3:16 PM CDT Body Mass Index 41 03/02/2024 3:16 PM CDT Plan of Treatment Health Maintenance Due Date Last Done Comments DIABETES ANNUAL FOOT EXAM 2014 DIABETES MICROALBUMIN ANNUAL SCREEN 2014 LDL CHOLESTEROL ANNUAL 2014 CERVICAL CANCER SCREENING 2017 HPV/Cotest (21-29) 2017 PAP SMEAR 2017 HPV VACCINES (1 - 3-dose SCD M series) 2023 DIABETES ANNUAL RETINAL EXAM 02/29/2024 02/28/2023 DIABETES HBA1C Q 6 MONTHS 03/20/2024 09/19/2023, INFLUENZA VACCINE (#1) 2025 DTAP/TDAP/TD VACCINES (3 - T d or Tdap) 05/20/2033 05/20/2023, 01/11/2020, 07/23/2002, Additional history exists HEPATITIS B VACCINES Completed 01/02/1998, 1996, 1996 Insurance [employer]
--- OUTSIDE RECORDS SUMMARY | 2025-08-01 19:29 | XMS_ITS | Encounter Summary ---
Author Organization [facility] Address [address] [place] [address] Phone Care Team Providers Care Awning Maker Name Role Phone Diomedes Pastor DO Primary Care Provider [phone] Stephanie Valero MD Primary Care Provider [phone] Stephanie Valero MD Primary Care Provider Vincent Brumfield MD Unavailable [phone] MD Unavailable Encounter Details Date Type Department Care Team (Late st Contact Info) Description 01/20/2025 [facility] Account Director [address] [place] [address] Stephanie Valero MD [address] [place] [address] Social History Tobacco Use Types Packs/Day Years Used Date Smoking Tobacco: Never Smokeless Tobacco: Never Alcohol Use Standard Drinks/Week Comments No 0 (1 standard drink = 0.6 oz pur e alcohol) Comments No Sex and Gender Information Value Date Recorded Sex Assigned at Not on file Legal Sex Female 10:57 PM CDT Gender Identity Not on file Sexual Orientation Not on file documented as of this encounter Plan of Treatment Upcoming Encounters Date Type Department Care Team (Late st Contact Info) Description 08/09/2025 3:15 PM CDT Office Visit [facility] - Endocrinology - [place] [address] [place] [address] MD [address] [address] documented as of this encounter Visit Diagnoses Not on filedocumented in this encounter Care Teams Awning Maker Relationship Specialty Start Date End Date Diomedes Pastor DO [address] [place] [address] PCP - General Family Medicine 12/08/18 01/23/25 Stephanie Valero MD [address] [place] [address] PCP - General Family Medicine 01/24/25 01/30/25 Stepahnie Valero MD [address] [place] [address] PCP - General Family Medicine 02/11/25 Vincent Brumfield MD [address] [address] Consulting Physician General Surgery 02/11/[address] MD [address] [phone] Consulting Physician Endocrinology 04/04/25 documented as of this encounter
--- OUTSIDE RECORDS SUMMARY | 2025-08-01 19:29 | XMS_ITS | Encounter Summary ---
Author Organization [facility] Address [address] [place] [place] [address] Care Team Providers Care Student Education Specialist Name Role Phone Jeffry Capps MD Primary Care Provider [phone] Jeffry Capps MD Unavailable [phone] Gini Lindsey MD Unavailable [phone] Gladys Reeves [facility] Unavailable [phone] Reason for Visit * Reason Onset Date Comments Nurse Only 12/04/2022 Encounter Details Date Type Department Care Team (Late st Contact Info) Description 12/04/2022 Telephone [facility] [address] [place], [place] [id number] Steve Adams MD [address] [phone] Nurse Only Social History Tobacco Use Types Packs/Day Years Used Date Smoking Tobacco: Never Assessed Comments Unknown Sex and Gender Information Value Date Recorded Sex Assigned at Not on file Legal Sex Female 5:37 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 Gender Identity Not on file Sexual Orientation Not on file documented as of this encounter Miscellaneous Notes * Telephone Encounter - Reba Do - 12/04/2022 12:18 PM CST Pt was referred by Dion Cotton @ [facility], pt is 5 weeks and has type I diabetes and needhigh risk provider UATE CIVIL ENGINEER documented in this encounter Plan of Treatment Not on file documented as of this encounter Visit Diagnoses Not on filedocumented in this encounter Additional Health Concerns Infection Onset Date Last Indicated Resolved Time COVID-19 Confirmed 06/22/2023 06/22/2023 4:33 AM CDT documented as of this encounter Care Teams Student Education Specialist Relationship Specialty Start Date End Date Jeffry Capps MD [address] [place] [address] PCP - General 10/09/22 Jeffry Capps MD [address] [place] [address] PCP - Attributed-[employer] [place] 12/01/22 06/30/23 Gini Lindsey MD [address] [place] [address] PCP - Attributed-[employer] [place] 07/01/23 12/31/23 Gladys Reeves APRN-PULPER OPERATOR [address] [address] PCP - Attributed-[employer] [place] 01/01/24 documented as of this encounter
--- OUTSIDE RECORDS SUMMARY | 2025-08-01 19:29 | XMS_ITS | Encounter Summary ---
Author Organization [facility] Address [address] [place] [address] Phone Care Team Providers Care Track Laminating Machine Tender Name Role Phone Diomedes Pastor DO Primary Care Provider [phone] Stephanie Valero MD Primary Care Provider Stephanie Valero MD Primary Care Provider Vincent Brumfield MD Unavailable [phone] MD Unavailable Encounter Details Date Type Department Care Team (Late st Contact Info) Description 01/20/2025 Transcribe Orders [facility] Central Scheduling [address] [place] [address] Stephanie Valero MD [address] [place] [address] Social History Tobacco Use Types [...] Visit [facility] - Endocrinology - [place] [address] [place] [address] MD [address] [address] documented as of this encounter Visit Diagnoses Not on filedocumented in this encounter Care Teams Track Laminating Machine Tender Relationship Specialty Start Date End Date Diomedes Pastor DO [address] [place] [address] PCP - General Family Medicine 12/08/18 01/23/25 Stephanie Valero MD [address] [place] [address] PCP - General Family Medicine 01/24/25 01/30/25 Stephanie Valero MD [address] [place] [address] PCP - General Family Medicine 02/11/25 Vincent Brumfield MD [address] [address] Consulting Physician General Surgery 02/11/[address] MD [address] [phone] Consulting Physician Endocrinology 04/04/25 documented as of this encounter
--- OUTSIDE RECORDS SUMMARY | 2025-08-01 19:29 | XMS_ITS | Encounter Summary ---
Author Organization [facility] Address [address] [place] [address] Care Team Providers Care Ready Mix Truck Driver Name Role Phone Jeffry Capps MD Primary Care Provider [phone] Jeffry Capps MD Unavailable Gini Lindsey MD Unavailable [phone] Gladys Reeves [facility] Unavailable [phone] Reason for Visit * Reason Onset Date Comments Med Question 06/05/2023 Encounter Details Date Type Department Care Team (Late st Contact Info) Description 06/05/2023 Telephone [facility] - SLAB MILLER OPERATOR [address] [facility] [address] [place] [address] Chanel Vale MD [address] [place] [address] Med Question Social History Tobacco Use Types Packs/Day Years Used Date Smoking Tobacco: Never Smokeless Tobacco: Never Alcohol Use Standard Drinks/Week Comments Not Currently 0 (1 standard drink = 0.6 oz pur e alcohol) Overall Financial Resource Strain (CARDIA) Answe r Date Recorded How hard is it for you to pa y for the very basics like food, housing, medical care, and heating? Not hard at all 05/30/2023 PHQ-2 Answer Date Recorded PHQ2 TOTAL SCORE 0 04/08/2023 [facility] - Occupational Stress Questionnaire Answer Date Recorded Do you feel stress - tense, restless, nervous, or anxious, or unable to sleep at night because your mind is troubled all the time - these days? Not at all 05/30/2023 Hunger Vital Sign Answer Date Recorded Within the past 12 months, y ou worried that your food would run out before you got the money to buy more. Never true 05/30/20 23 Within the past 12 months, t he food you bought just didn't last and you didn't have money to get more. Never true 05/30/2023 PRAPARE - Transportation Answer Date Re corded In the past 12 months, has l ack of transportation kept you from medical appointments or from getting medications? No 05/03 In the past 12 months, has l ack of transportation kept you from meetings, work, or from getting things needed for daily living? No 05/30/2023 Housing Stability Vital Sign Answer Lio e Recorded In the last 12 months, was t here a time when you were not able to pay the mortgage or rent on time? No 05/30/2023 In the last 12 months, how many places have you lived? 2 05/30/2023 In the last 12 months, was t here a time when you did not have a steady place to sleep or slept in a half-way (including now)? No 05/30/2023 Education Answer Date Recorded What is the highest level of school you have completed or the highest degree you have received? 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 No / Unsure 06/05/2023 8:40 AM CDT documented as of this encounter Functional Status * Is person deaf or have serious hearing difficulty? Answer Date of Assessment Author No 05/30/2023 6:32 PM CDT Jocelin Robles RN * Is person blind or have serious difficulty seeing? Answer Date of Assessment Author No 05/30/2023 6:32 PM CDT Jocelin Robles RN * Does person have serious difficulty walking/climbing stairs? Answer Date of Assessment Author No 05/30/2023 6:32 PM CDT Jocelin Robles RN * Does person have difficulty dressing/bathing? Answer Date of Assessment Author No 05/30/2023 6:32 PM CDT Jocelin Robles RN * Does person have difficulty doing errands alone? Answer Date of Assessment Author No 05/30/2023 6:32 PM CDT Jocelin Robles RN documented as of this encounter Mental Status * Does person have difficulty concentrating/remembering/making decisions? Answer Entry Date Author No 05/30/2023 6:32 PM CDT Jocelin Robles RN documented in this encounter Miscellaneous Notes * Telephone Encounter - Lorena Jones - 06/05/2023 1:26 PM CDT Vashti from [facility] , calling to get the RX for pt changed .. from humalog to novolog (insurance no longer paying for the humalog) Please contact [phone] documented in this encounter Plan of Treatment Not on file documented as of this encounter Visit Diagnoses Not on filedocumented in this encounter Additional Health Concerns Infection Onset Date Last Indicated Resolved Time COVID-19 Confirmed 06/22/2023 06/22/2023 4:33 AM CDT documented as of this encounter Care Teams Ready Mix Truck Driver Relationship Specialty Start Date End Date Jeffry Capps MD [address] [place] [phone] PCP - General 10/09/22 Jeffry Capps MD [address] [place] [address] PCP - Attributed-[facility] [employer] [place] 12/01/22 06/30/23 Gini Lindsey MD [address] [place] [address] PCP - Attributed[facility] [place] 07/01/23 12/31/23 Gladys Reeves APRN-PLASTIC AND RECONSTRUCTIVE SURGEON [address] [address] PCP - Attributed-[facility] [employer] [place] /12/24 documented as of this encounter
--- OUTSIDE RECORDS SUMMARY | 2025-08-01 19:29 | XMS_ITS | Clinical Summary ---
Author Organization [facility] Address [address] [place] [address] Phone Care Team Providers Care Retirement Manager Name Role Phone Stephanie Valero MD Primary Care Provider [phone] Vincent Brumfield MD Unavailable Inez Lane MD Unavailable Allergies No known active allergies Medications NovoLOG 100 UNIT/ML Solution ADMINISTER 70 UNITS PER DAY VIA INSULIN PUMP 08/17/20 24 Active ursodiol (ACTIGALL) 250 MG Tablet Take 250 mg by mouth. 06/04/20 23 Active Vit-Iron Carbonyl-FA ( Plus Iron) 29-1 MG Tablet Take 1 Tablet by mouth daily. 07/18/20 23 Active polyethylene glycol (GLYCOLAX) 17 GM/SCOOP Powder Take 17 g by mouth. 07/18/20 23 Active Norgestimate-et hinyl estradiol (Estarylla) 0.25-35 MG-MCG Tablet Take 1 Tablet by mouth daily. Active metoclopramide (REGLAN) 10 MG Tablet Take 10 mg by mouth. 11/23/20 21 Active Lancets (OneTouch Delica Plus [id number]) [facility] USE LANCETS TO CHECK GLUCOSE 4 TIMES DAILY 08/12/20 19 Active insulin lispro (HumaLOG) 100 UNIT/ML Solution USE PER INSULIN PUMP, TOTAL DAILY DOSE 50 UNITS 04/18/20 22 Active insulin glargine-yfgn 100 UNIT/ML Solution Pen-injector INJECT 18 UNITS SUBCUTANEOUSLY EVERY MORNING NEEDED FOR INSULIN PUMP MALFUNCTION Active Insulin Disposable Pump (Omnipod DASH Pods, Gen 4,) Misc 1 Each by Does not apply route. 06/11/20 23 Active hydrOXYzine (VISTARIL) 25 MG Capsule Take 25 mg by mouth. 07/03/20 23 Active Glucose Blood (Precision QID Test) Strip OneTouch Verio strips Active Glucagon (Gvoke HypoPen 2-Pack) 1 MG/0.2ML Solution Auto-injector INJECT 1MG (0.2ML) SUBCUTANEOUSLY ONCE. MAY REPEAT ONCE AFTER 15 MINUTES IF NO RESPONSE Active docusate sodium 100 MG Capsule Take 1 Capsule by mouth daily. 07/18/20 23 Active Continuous Glucose Transmitter (Dexcom G6 Transmitter) Misc USE ONE DEXCOM G6 TRANSMITTER EVERY 90 DAYS 12/13/19 23 Active Continuous Glucose Sensor (Dexcom G6 Sensor) Misc USE TO MONITOR GLUCOSE; CHANGE EVERY 10 DAYS Active Continuous Glucose Sensor (Dexcom G6 Sensor) Misc CHANGE DEXCOM G6 SENSOR EVERY 10 DAYS 01/11/20 23 Active Tirzepatide (Mounjaro) 2.5 MG/0.5ML Solution Auto-injector 2.5 mg by Subcutaneous route once a week. 2 mL 04/06/20 25 Active Active Problems Problem Noted Date Diagnosed Date Type 1 diabetes mellitus without complication Encounters Date Type Department Care Team Description 05/04/2025 Telephone [facility] - Endocrinology [facility] [address] [place] [address] MD from Last 3 Months Immunizations Immunization Administration Dates Next Due DTAP VACCINE, UNSPECIFIED FORMULATION ,05/17/1998,04/13/1997,1996,1996 Hepatitis B Vaccine,unspecif ied Formulation 01/02/1998,1996,1996 MMR Vaccine 07/23/2002,01/02/1998 Polio Vaccine,unspecified Formulation ,04/13/1997,01/08/1997,1995 TD VACCINE 07/23/2007 TDAP Vaccine 05/20/2023,01/11/2020 Varicella Vaccine Live 07/23/2007,01/09/1999 Social History Tobacco Use Types Packs/Day Years [...] Sign Reading Time Taken Comments Blood Pressure 122/76 04/06/2025 9:21 AM CDT Pulse 73 04/06/2025 9:21 AM CDT Temperature 36.3 C (97.4 F) 04/06/2025 9:21 AM CDT Respiratory Rate 22 04/06/2025 9:2 1 AM CDT Oxygen Saturation 96% 04/06/2025 9:21 AM CDT Inhaled Oxygen Concentration - - Weight 106.9 kg (235 lb 9.6 oz) 04/06/2025 9:21 AM CDT Height 154.9 cm (5' 1) 02/11/2025 10:2 9 AM CDT Body Mass Index 44.52 02/11/2025 10:29 AM CDT Plan of Treatment Upcoming Encounters Date Type Department Care Team (Late st Contact Info) Description 08/09/2025 3:15 PM CDT Office Visit [facility] - Endocrinology - [place] [address] [place] [address] MD [address] [address] Health Maintenance Due Date Last Done Comments Diabetes: Eye Exam 1996 Pneumococcal Immunization Combined (1 of 2 - PCV) 2015 Pap Smear 2017 Diabetes: Nephropathy Screening 12/08/2019 12/08/2018 Human Papillomavirus (HPV) Immunization (1 - 3-dose SCDM series) 2023 Influenza Immunization (#1) 2025 SARS-COV-2 Immunization ( season) 2025 Diabetes: Hemoglobin A1c 10/07/2025 05/07/2 025, 09/19/2023, 07/21/2023 Diabetes: Foot Exam 04/06/2026 04/06/2025 DTaP/Tdap/Td Immunization (8 - Td or Tdap) 05/20/2033 05/20/2023, 01/11/2020, 07/23/2007, Additional history exists Respiratory Syncytial Virus (RSV) Immunization (Adult) (1 - 1-dose 75+ series) 2071 Hepatitis B Immunization Completed 998, 1996, 1996 Hepatitis C Virus (HCV) Screening Completed 01/27/2023 TdaP Immunization Discontinued 05/20/2023, 01/11/2020 Meningococcal Immunization (ACWY) Aged Out No longer eligible based on patient's age to complete this topic Rotavirus Immunization Aged Out No lo nger eligible based on patient's age to complete this topic Procedures Procedure Name Priority Date/Time Associated Diagnosis Comments POCT GLYCOSYLATED HEMOGLOBIN Routine 04/06/2025 9:24 AM CDT Type 1 diabetes mellitus without complication CMP (COMPREHENSIVE METABOLIC PANEL) STAT 12/08/2018 11:45 AM WET PRIMER POWDER BLENDER from Last 3 Months or Most Recently Relevant to Health Maintenance Results * (ABNORMAL) POCT GLYCOSYLATED HEMOGLOBIN (04/06/2025 9:24 AM CDT) HGB-A1C 7.0(A) 4 - 6 % Blood 04/06/2025 9:[address] MD POINT OF CARE TESTING (MANUAL) F inal Result * (ABNORMAL) CMP (12/08/2018 11:45 AM WET PRIMER POWDER BLENDER) SODIUM 139 136 - 144 mmol/L 12/08/2018 12:22 PM WET PRIMER POWDER BLENDER [facility] POTASSIUM 4.0 3.5 - 5.1 mmol/L 12/08/2018 12:22 PM WET PRIMER POWDER BLENDER [facility] CHLORIDE 100 100 - 110 mmol/L 12/08/2018 12:22 PM [facility] CO2, VENOUS 23 22 - 32 mmol/L 12/08/2018 12:22 PM [facility] ANION GAP 20.0 8.0 - 20.0 mmol/L 12/08/2018 12:22 PM [facility] GLUCOSE 253(H) 70 - 99 mg/dL 12/08/2018 12:22 PM [facility] BUN 9 6 - 20 mg/dL 12/08/2018 12:22 PM [facility] CREATININE, BLOOD 0.78 0.60 - 1.10 mg/dL 12/08/2018 12:22 PM [facility] BUN/CREATININE RATIO 12 12 - 20 ratio 12/08/2018 12:22 PM [facility] TOTAL PROTEIN 7.8 6.0 - 8.3 g/dL 12/08/2018 12:22 PM [facility] ALBUMIN 4.6 3.5 - 5.2 g/dL 12/08/2018 12:22 PM [facility] Comment: The colormetric methods used for the determination of Albumin may lead to falsely elevated test results in patients suffering from renal failure or insufficiency due to interference with other proteins. A/G RATIO 1.4 1.0 - 2.0 12/08/2018 12:22 PM [facility] CALCIUM 9.4 8.9 - 10.3 mg/dL 12/08/2018 12:22 PM [facility] T BILI 0.5 <=1.2 mg/dL 12/08/2018 12:22 PM [facility] SGOT (AST) 15 <=32 U/L 12/08/2018 12:22 PM [facility] SGPT (ALT) 17 <=33 U/L 12/08/2018 12:22 PM [facility] ALKALINE PHOSPHATASE 70 35 - 105 U/L 12/08/2018 12:22 PM [facility] GFR, EST. NONAFRICAN >60 >=60 12/08/2018 12:22 PM [facility] GFR, EST. >60 >=60 019 12:22 PM WET PRIMER POWDER BLENDER [facility] Comment: Creatinine Clearance is the preferred criteria for selecting drug dose adjustments in renally impaired patients. The GFR is provided as additional pertinent clinical information. GFR is reported in mL/min/1.73 sq m. Blood specimen (specimen) Venipuncture / Unknown 12/08/2018 11:45 AM WET PRIMER POWDER BLENDER 12/08/2018 11:56 AM WET PRIMER POWDER BLENDER us Aidan Ramachandran MD CHEMISTRY ORDERABLES Final Result [facility] [address] [facility] [place] [address] from Last 3 Months or Most Recently Relevant to Health Maintenance Insurance MEDICAID [place] Care Teams Retirement Manager Relationship Specialty Start Date End Date Stephanie Valero MD [address] [place] [address] PCP - General Family Medicine 02/11/25 Vincent Brumfield MD [address] [address] Consulting Physician General Surgery 02/11/[address] MD [address] [address] Consulting Physician Endocrinology 04/04/25
--- OUTSIDE RECORDS SUMMARY | 2025-08-01 19:29 | XMS_ITS | Encounter Summary ---
Author Organization [facility] Address [address] [place] [address] Care Team Providers Care Assistant Hairstylist Name Role Phone Jeffry Capps MD Primary Care Provider [phone] Jeffry Capps MD Unavailable Gini Lindsey MD Unavailable [phone] Gladys Reeves APRN-PUBLIC SPEAKING INSTRUCTOR Unavailable [phone] Encounter Details Date Type Department Care Team (Late st Contact Info) Description 06/23/2023 Telephone [facility] Women's Health Maternal & Care [address] [place] [address] Coni Villanueva Social History Tobacco Use Types Packs/Day Years [...] care, and heating? Not hard at all 06/22/2023 PHQ-2 Answer Date Recorded PHQ2 TOTAL SCORE 0 04/08/2023 [facility] - Occupational Stress Questionnaire Answer Date Recorded Do you feel stress - tense, restless, nervous, or anxious, or unable to sleep at night because your mind is troubled all the time - these days? Not at all 06/22/2023 Hunger Vital Sign Answer Date Recorded Within the past 12 months, y ou worried that your food would run out before you got the money to buy more. Never true 06/22/20 Within the past 12 months, t he food you bought just didn't last and you didn't have money to get more. Never true 06/22/2023 PRAPARE - Transportation Answer Date Re corded In the past 12 months, has l ack of transportation kept you from medical appointments or from getting medications? No 06/01 In the past 12 months, has l ack of transportation kept you from meetings, work, or from getting things needed for daily living? No 06/22/2023 Housing Stability Vital Sign Answer Lio e Recorded In the last 12 months, was t here a time when you were not able to pay the mortgage or rent on time? No 06/22/2023 In the last 12 months, how many places have you lived? 2 06/22/2023 In the last 12 months, was t here a time when you did not have a steady place to sleep or slept in a snf (including now)? No 06/22/2023 Education Answer Date Recorded What is the highest level of school you have completed or the highest degree you have received? 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 Answer Date of Assessment Author No 06/22/2023 8:30 PM CDT Grecia Alvarez RN * Is person blind or have serious difficulty seeing? Answer Date of Assessment Author No 06/22/2023 8:30 PM CDT Grecia Alvarez RN * Does person have serious difficulty walking/climbing stairs? Answer Date of Assessment Author No 06/22/2023 8:30 PM CDT Grecia Alvarez RN * Does person have difficulty dressing/bathing? Answer Date of Assessment Author No 06/22/2023 8:30 PM CDT Grecia Alvarez RN * Does person have difficulty doing errands alone? Answer Date of Assessment Author No 06/22/2023 8:30 PM CDT Grecia Alvarez RN documented as of this encounter Mental Status * Does person have difficulty concentrating/remembering/making decisions? Answer Entry Date Author No 06/22/2023 8:30 PM CDT Grecia Alvarez RN documented in this encounter Plan of Treatment Not on file documented as of this encounter Visit Diagnoses Not on filedocumented in this encounter Additional Health Concerns Infection Onset Date Last Indicated Resolved Time COVID-19 Confirmed 06/22/2023 06/22/2023 4:33 AM CDT documented as of this encounter Care Teams Assistant Hairstylist Relationship Specialty Start Date End Date Jeffry Capps MD [address] [place] [address] PCP - General 10/09/22 Jeffry Capps MD [address] [place] [address] PCP - Attributed-[employer] [employer] [place] 12/01/22 06/30/23 Gini Lindsey MD [address] [place] [address] PCP - [facility] [place] 07/01/23 12/31/23 Gladys Reeves APRN-PUBLIC SPEAKING INSTRUCTOR [address] [address] PCP - Attributed[facility] [employer] [place] /12/24 documented as of this encounter
--- OUTSIDE RECORDS SUMMARY | 2025-08-01 19:29 | XMS_ITS | Clinical Summary ---
Author Organization [facility] Address [address] [place] [address] Care Team Providers Care Component Lab Tech Name Role Phone Jeffry Capps MD Primary Care Provider [phone] Gladys Reeves APRN-[facility] Unavailable [phone] Source Comments [facility],non-owned Affiliates and Associated Physician Practices is amultiple site organization consisting of ambulatory clinics and hospital sitesin [place], [place], [place] and [place]. This disclosure is being madepursuant to the Care Everywhere program and may not contain all information available regarding this patient. Last updated 18.[facility] Allergies No known active allergies Medications * Be aware that medications may not be up to date on this document. Alwaysverify current medications with the patient. MV-Min-Fe Fum-FA-DHA ( 1 PO) Acti ve aspirin (Aspirin) 81 MG chew tabletIndications: Type 1 diabetes mellitus during in first trimester (HCC) Take 2 (two) tablets by mouth once daily 100 tablet 4 01/14/20 23 Active Additional Information Patient not taking.Reported on 07/21/2023 ferrous sulfate 325 (65 FE) MG tablet Take 1 (one) tablet by mouth once daily 100 tablet 4 01/14/20 23 Active Additional Information Patient not taking.Reported on 07/21/2023 folic acid (Folvite) 1 MG tablet Take 1 (one) tablet by mouth once daily 90 tablet 4 01/14/20 Active Additional Information Patient not taking.Reported on 07/21/2023 Continuous Blood Gluc Transmit (Dexcom G6 Transmitter) MISC USE ONE DEXCOM G6 TRANSMITTER EVERY 90 DAYS 12/13/19 Active Continuous Blood Gluc Sensor (Dexcom G6 Sensor) MISC CHANGE DEXCOM G6 SENSOR EVERY 10 DAYS 01/11/20 Active Cholecalciferol (Vitamin D) 50 MCG (2000 UT) capsule Take 1 (one) capsule by mouth once daily 30 capsule 04/29/20 Active ursodiol (Actigall) 250 MG tablet Take 1 (one) tablet by mouth 3 times daily 90 tablet 2 06/04/20 Active Additional Information Patient not taking.Reported on 07/21/2023 insulin aspart (NovoLOG) vial Inject subcutaneously 3 times daily before meals Up to 150u by insulin pump Active Insulin Disposable Pump (Omnipod DASH Pods, Gen 4,) MISCIndications:Ty pe 1 diabetes mellitus affecting in second trimester, antepartum (HCC) Use 1 Each as directed for 1 dose Pod change every 2 days 15 Each 6 06/11/20 Active hydrOXYzine pamoate (Vistaril) 25 MG capsule Take 1 (one) capsule by mouth 2 times daily as needed 30 capsule 07/03/20 Active Additional Information Patient not taking.Reported on 07/21/2023 polyethylene glycol 3350 (Miralax) 17 GM/SCOOP powder Take 17 (seventeen) g by mouth once daily 238 g 07/18/20 Active Additional Information Patient not taking.Reported on 07/21/2023 oxyCODONE, immediate release, (Roxicodone) 5 MG tabletIndications: Elevated blood pressure affecting in third trimester, antepartum (HCC) Take 1 (one) tablet by mouth every 6 hours as needed for Pain Take 1 (one) tablet by mouth every 6 hours as need for pain. 12 tablet 07/18/20 Active plus iron (Natatab) 29-1 MG tablet Take 1 (one) tablet by mouth once daily 30 tablet 3 07/18/20 Active docusate sodium (Colace) 100 MG capsule Take 1 (one) capsule by mouth once daily 30 capsule 07/18/20 Active ibuprofen (Motrin) 600 MG tablet Take 1 (one) tablet by mouth every 6 hours as needed for Pain 30 tablet 07/18/20 Active iron polysaccharides (Niferex 150) 150 MG capsule Take 1 (one) capsule by mouth once daily 100 capsule 07/18/20 Active Active Problems Problem Noted Date Diagnosed Date Low grade squamous intraepit h lesion on cytologic smear cervix (lgsil) 07/21/2023 History of twin in prior Overview (07/21/2023): G1 care following delivery 07/02 Postoperative anemia 06/20/2023 History of severe pre-eclampsia - G1 06/19/2023 History of cholestasis during - G1 03/2023 Insulin pump titration 02/26/2023 Vitamin D insufficiency 02/23/2019 Overview (01/18/2023): Not currently taking Vitamin D Level was 24 in 2019, not repeated Type 1 diabetes mellitus without complication Overview (01/18/2023): [facility] Endocrinology- see Care Everywhere -Currently using Omnipod insulin pump and Dexcom -A1C on 12/18/22 was 6.2% -Dexcom download indicates some hypoglycemia which she attributes to frequent corrections leading to stacking of insulin. Will adjust correction factor form 60-->50 and follow with her response. She will be following with [facility] throughout . -Advised to call with any concerns/complaints regarding glucose readings -Eye exam is up to date Resolved Problems Problem Noted Date Diagnosed Date Resolved Date Elevated blood pressure affe cting in third trimester, antepartum 07/14/2023 3 Abdominal cramping 07/09/2023 3 Supervision of high risk pre gnancy in third trimester 06/18/2023 06/19/2023 Generalized abdominal pain 05/30/2023 0 06/04/2023 Pruritus of in third trimester 05/20/2023 06/11/2023 Nausea and vomiting in 04/29/2023 07/21/2023 headache in third trimester 04/29/2023 07/21/2023 Excessive weight gain affecting 04/14/2023 07/21/2023 High-risk supervision 02/26/2023 07/21/2023 Abdominal cramping affecting 02/24/2023 02/26/2023 Occupational risk affecting 01/18/2023 07/21/2023 Overview (01/28/2023): No direct exposure to cat feces: 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; 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, 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 - exposure to isoflurane Toxo IgG negative Nausea and vomiting during 01/18/2023 03/31/2023 Overview (01/18/2023): Controlled with nightly doxyllamine Type 1 diabetes mellitus dur ing in third trimester 01/18/2023 07/21/2023 Overview (01/18/2023): Onset age 22 Obesity affecting 01/18/2023 07/21/2023 Overview (01/18/2023): Pre- weight 191 lb, BMI 36.1 Antepartum abnormal cervical Papanicolaou smear complicating 01/18/2023 07/21/2023 Overview (01/18/2023): LGSIL 12/30/22 - to be followed up by Dr Neves; colpo planned Dichorionic diamniotic twin , antepartum 01/18/2023 07/21/2023 Overview (01/18/2023): Concordant sizes at 10 weeks Immunizations Immunization Administration Dates Next Due DTAP, HISTORIC VACCINE 07/23/2002,1997,04/13/1997,01/08/1997, 6 HEP B VACCINE 01/02/1998,1996,1996 MMR VACCINE 07/23/2002,01/02/1998 POLIO,HISTORIC VACCINE 07/23/2002,04/13/1997,07/1997,1996 TD (AGE 7-ADULT) 07/23/2007 TDAP (7yrs+) 05/20/2023,01/11/2020 VARICELLA 07/23/2007,01/09/1999 Family History Relation Name Status Comments Father Alive Mother Alive Social History Tobacco Use Types Packs/Day Years Used Date Smoking Tobacco: Never Smokeless Tobacco: Never Tobacco Cessation:Counseling Given: Not Answered Alcohol Use Standard Drinks/Week Comments Not Currently 0 (1 standard drink = 0.6 oz pur e alcohol) Overall Financial Resource Strain (CARDIA) Answe r Date Recorded How hard is it for you to pa y for the very basics like food, housing, medical care, and heating? Not hard at all 07/14/2023 PHQ-2 Answer Date Recorded Patient Health Questionnaire-2 Score 0 07/10/2023 [facility] - Occupational Stress Questionnaire Answer Date Recorded Do you feel stress - tense, restless, nervous, or anxious, or unable to sleep at night because your mind is troubled all the time - these days? Not at all 07/14/2023 Hunger Vital Sign Answer Date Recorded Within the past 12 months, y ou worried that your food would run out before you got the money to buy more. Never true 07/14/20 23 Within the past 12 months, t he food you bought just didn't last and you didn't have money to get more. Never true 07/14/2023 PRAPARE - Transportation Answer Date Re corded In the past 12 months, has l ack of transportation kept you from medical appointments or from getting medications? No 07/01 In the past 12 months, has l ack of transportation kept you from meetings, work, or from getting things needed for daily living? No 07/14/2023 Housing Stability Vital Sign Answer Lio e Recorded In the last 12 months, was t here a time when you were not able to pay the mortgage or rent on time? No 07/14/2023 In the last 12 months, how many places have you lived? 1 07/14/2023 In the last 12 months, was t here a time when you did not have a steady place to sleep or slept in a intermediate (including now)? No 07/14/2023 [place] Depression Scale Answer Date Recorded [place] Depression Scale Total 1 07/21/2023 The thought of harming myself has occurred to me . Never 07/21/2023 Education Answer Date Recorded What is the highest level of school you have completed or the highest degree you have received? Bachelor's degree (e.g., BA, AB, BS) 01/14/2023 Comments No Sex and Gender Information Value Date Recorded Sex Assigned at Not on file Legal Sex Female 5:37 AM CLINICAL STAFF ANESTHESIOLOGIST Gender Identity Not on file Sexual Orientation Not on file Occupation Industry Job Start Date Job End Date [employer] Not on file Not on file Not on file Last Filed Vital Signs Vital Sign Reading Time Taken Comments Blood Pressure 122/80 07/21/2023 2:32 PM CDT Pulse 120 07/21/2023 2:32 PM CDT Temperature 36.7 C (98.1 F) 07/18/2023 9:45 AM CDT Respiratory Rate 17 07/18/2023 9:45 AM CDT Oxygen Saturation 100% 07/18/2023 9:45 AM CDT Inhaled Oxygen Concentration - - Weight 105.2 kg (232 lb) 07/21/2023 2:32 PM CDT Height 154.9 cm (5' 1) 07/21/2023 2:32 PM CDT Body Mass Index 43.84 07/21/2023 2:32 PM CDT Plan of Treatment Health Maintenance Due Date Last Done Comments PNEUMOCOCCAL VACCINE (1 of 2 - PCV) 2015 PAP SMEAR 2017 DIABETES-FOOT EXAM WITH MONOFILAMENT 01/03/2023 HPV VACCINE (1 - 3-dose SCDM series) 2023 DIABETES-HGB A1C 01/21/2024 07/21/2023, , 05/20/2023, Additional history exists DIABETES-SERUM CREATININE 07/15/20242022, 07/14/2023, 07/07/2023, Additional history exists COVID-19 VACCINE ( season) 2024 DEPRESSION SCREENING 12/01/2024 04/11/2023 DIABETES - URINE PROTEIN SCREENING 12/01/2024 07/14/2023, 07/07/2023, 06/30/2023, Additional history exists DIABETES RETINOPATHY SCREENING 02/28/2025 02/28/2023 INFLUENZA VACCINE (#1) 2025 DTAP/TDAP/TD VACCINES (9 - Td or Tdap) 05/20/2033 05/20/2023, 01/11/2020, 07/23/2007, Additional history exists ZOSTER VACCINE (1 of 2) 2046 HEPATITIS B VACCINE Completed 01/02/1998, 1996, 1996 HEPATITIS C SCREENING Completed 01/27/2023 HIV SCREENING Completed 05/20/2023 HIB VACCINE Aged Out No longer eligi ble based on patient's age to complete this topic MENINGOCOCCAL (Group B) VACCINE SHARED DECISION-MAKING Aged Out No longer eligible based on patient's age to complete this topic MENINGOCOCCAL GROUPS A/C/Y/W VACCINE Aged Out No longer eligible based on patient's age to complete this topic Procedures Procedure Name Priority Date/Time Associated Diagnosis Comments HEMOGLOBIN A1C - POINT OF CARE (AMB) [facility] Routine 07/21/2023 2:31 PM CDT Type 1 diabetes mellitus without complication Routine follow-up COMPREHENSIVE METABOLIC PANEL Timed 07/15/2023 2:15 AM CDT PROTEIN CREATININE RATIO URINE RANDOM PNL Routine 07/14/2023 6:04 PM CDT Elevated blood pressure affecting in third trimester, antepartum HIV-1 HIV-2 ANTIBODY + HIV P24 AG PANEL Routine 05/20/2023 2:37 PM CDT High-risk in third trimester EYE EXAM 02/28/2023 HEPATITIS C ANTIBODY Routine 01/27/2023 1:09 PM CLINICAL STAFF ANESTHESIOLOGIST High-risk in first trimester from Last 3 Months or Most Recently Relevant to Health Maintenance Results * HEMOGLOBIN A1C - POINT OF CARE (AMB) [facility] (07/21/2023 2:31 PM CDT) Hemoglobin A1c POCT 5.2 % [facility] [address] [facility] BLOOD SPECIMEN / Unknown 07/21/2023 2:31 PM CDT Juana Sharp GUIDE TRAV[facility] - POINT OF CARE OR DERABLES Final [place] [address], [facility] [phone] * (ABNORMAL) COMPREHENSIVE METABOLIC PANEL (07/15/2023 2:15 AM CDT) Glucose 144(H) 70 - 105 mg/dL 07/15/2023 3:28 AM CDT [facility] Sodium 138 136 - 145 mmol/L 07/15/2023 3:28 AM CDT [facility] Potassium 3.8 3.5 - 5.1 mmol/L 07/15/2023 3:28 AM CDT [facility] Chloride 111(H) 98 - 107 mmol/L 07/15/2023 3:28 AM CDT [facility] CO2 18(L) 22 - 29 mmol/L 07/15/2023 3:28 AM CDT [facility] Calcium 7.7(L) 8.4 - 10.4 mg/dL 07/15/2023 3:28 AM CDT [facility] Anion Gap 9 6 - 16 mmol/L 07/15/2023 3:28 AM CDT [facility] BUN 8 5.3 - 18.7 mg/dL 07/15/2023 3:28 AM CDT [facility] Creatinine 0.83 0.57 - 1.11 mg/dL 07/15/2023 3:28 AM CDT [facility] Alkaline Phosphatase 155(H) 40 - 150 U/L 07/15/2023 3:28 AM CDT [facility] ALT 22 0 - 55 U/L 07/15/2023 3:28 AM CDT [facility] AST 39(H) 5 - 34 U/L 07/15/2023 3:28 AM CDT [facility] Protein Total 5.0(L) 6.4 - 8.3 gm/dL 07/15/2023 3:28 AM CDT [facility] Albumin 2.1(L) 3.4 - 5.0 gm/dL 07/15/2023 3:28 AM CDT [facility] Bilirubin Total 1.1 0.2 - 1.2 mg/dL 07/15/2023 3:28 AM CDT [facility] eGFR by CKD-EPI >90 >=90 mL/min/1.7 3 m2 07/15/2023 3:28 AM CDT [facility] Blood BLOOD SPECIMEN / Unknown Venipuncture / Unknown 07/15/2023 2:15 AM CDT 07/15/2023 3:06 AM CDT Jah Walsh MD LAB - CHEMISTRY ORDERA BLES Final Result Performing Organization Address City/[facility]/ZIP Co de Phone Number [facility] [address] [place] [address] * (ABNORMAL) PROTEIN CREATININE RATIO URINE RANDOM PNL (07/14/2023 6:04 PM CDT) Pathologist [facility] Protein Urine 21.7(H) <11.9 mg/dL 07/14/2023 6:59 PM CDT [facility] Creatinine Urine 128.12 mg/dL 07/14/2023 6:59 PM CDT [facility] Protein/Creatin ine Ratio Urine 0.17 07/14/2023 6:59 PM CDT [facility] Urine URINE SPECIMEN OBTAINED BY CLEAN CATCH PROCEDURE / Unknown Collection / Unknown 07/14/2023 6:04 PM CDT 07/14/2023 6:37 PM CDT Jah Walsh MD LAB - URINE CHEMISTRY ORDERABLES Final Result [facility] [address] [place] [address] * HIV-1 HIV-2 ANTIBODY + HIV P24 AG PANEL (05/20/2023 2:37 PM CDT) Pathologist [facility] HIV Screen 4th Generation w Reflex Non Reactive Non Reactive [facility] INSURANCE BILL Comment: HIV Negative HIV-1/HIV-2 antibodies and HIV-1 p24 antigen were NOT detected. There is no laboratory evidence of HIV infection. Blood BLOOD SPECIMEN / Unknown 05/20/2023 2:37 PM CDT 05/20/2023 Narrative Resulting Agency Comment [facility] [address] [id number] us Juana Sharp [facility] - CHEMISTRY ORDERA BLES Final Result Performing Organization Address City/[facility]/ZIP Co de Phone Number [facility] INSURANCE BILL [address] [place] [address] * EYE EXAM (02/28/2023) Anatomical Region Laterality Modality Other 02/28/2023 Narrative 02/28/2023 Ordered by an unspecified provider. us Scanned Document SCANNING ONLY Final Result * HEPATITIS C ANTIBODY (01/27/2023 1:09 PM CLINICAL STAFF ANESTHESIOLOGIST) Hepatitis C Antibody Non Reactive Non Reactive [facility] INSURANCE BILL Comment: HCV antibody alone does not differentiate between previously resolved infection and active infection. Equivocal and Reactive HCV antibody results should be followed up with an HCV RNA test to support the diagnosis of active HCV infection. Blood BLOOD SPECIMEN / Unknown 01/27/2023 1:09 PM CLINICAL STAFF ANESTHESIOLOGIST 01/27/2023 Narrative Resulting Agency Comment Lab Testing performed at: [facility] [address] [phone] us Chanel Vale MD LAB - CHEMISTRY ORDERA BLES Final Result Performing Organization Address [facility] Co de Phone Number [facility] INSURANCE BILL [address] [place] [address] from Last 3 Months or Most Recently Relevant to Health Maintenance Insurance [facility] MEDICAID Advance Directives * Full Code (Latest Code Status on File) Date Activated Date Inactivated Comments 07/17/2023 1:55 PM 07/18/2023 3:05 PM * Full Code Date Activated Date Inactivated Comments 07/14/2023 6:44 PM 07/15/2023 6:01 AM * Full Code Date Activated Date Inactivated Comments 06/22/2023 7:26 PM 06/23/2023 1:52 PM Care Teams Component Lab Tech Relationship Specialty Start Date End Date Jeffry Capps MD [address] [place] [phone] PCP - General 10/09/22 Gladys Reeves APRN-GUICHO [address] [phone] PCP - Attributed-[employer] [place] 01/01/24
--- OUTSIDE RECORDS SUMMARY | 2025-08-01 19:29 | XMS_ITS | Clinical Summary ---
Author Organization [facility] Address [address] [place] [address] Care Team Providers Care Nsh Teacher Name Role Phone Diomedes Pastor DO Primary Care Provider [phone] Allergies No known active allergies Medications blood glucose diagnostic strip OneTouch Verio strips Active ONETOUCH DELICA PLUS LANCET 33 gauge misc USE LANCETS TO CHECK GLUCOSE 4 TIMES DAILY 9 Active pen needle, diabetic 31 gauge x 1/4 needle USE WITH INSULIN INJECTIONS FIVE TIMES DAILY 9 Active ergocalciferol (VITAMIN D) 50,000 unit capsule Take 1 capsule (50,000 Units total) by mouth once a week 4 capsule 3 0 Active albuterol HFA (ProAir HFA) 90 mcg/actuation inhalerIndicatio ns:URI with cough and congestion Inhale 2 puffs every 4 (four) hours as needed for wheezing or shortness of breath 8.5 g 1 Active metoclopramide (REGLAN) 10 mg tablet Take 1 tablet (10 mg total) by mouth every 6 (six) hours 12 tablet 1 Active norgestimate-eth inyl estradioL (ORTHO-CYCLEN) 0.25-35 mg-mcg per tablet Take 1 tablet by mouth daily Active flash glucose sensor (FreeStyle Karina 2 Sensor) kit Change Karina 2 sensor every 14 days 2 kit 11 2 Active insulin lispro (HumaLOG) 100 unit/mL vial for injectionIndicat ions:Type 1 diabetes mellitus without complication (HCC) USE PER INSULIN PUMP, TOTAL DAILY DOSE 50 UNITS 50 mL 3 2 Active insulin pump cart,auto,BT-cnt r (Omnipod 5 G6 Intro Kit, Gen 5,) cartridge Dispense Omnipod 5 G6 Intro Kit (Gen 5) ND: [address]-59: Use as directed 1 each 2 Active insulin pump cart,cont inf,BT (Omnipod Dash Pods, Gen 4,) cartridgeIndicat ions:Type 1 diabetes mellitus without complication (HCC) Use with Omnipod Dash insulin pump, change pod every 3 days 30 each 4 Active insulin pump cart,automated,B T (Omnipod 5 G6 Pods, Gen 5,) cartridge Omnipod 5 G6 Pods (Gen 5) Refill 5 pack ND: [address]-65: Change pod every 2 days 45 each 3 4 Active blood-glucose sensor (Dexcom G6 Sensor) deviceIndication s:Type 1 diabetes mellitus without complication (HCC) Change Dexcom G6 sensor every 10 days 9 each 3 4 Active blood-glucose transmitter (Dexcom G6 Transmitter) deviceIndication s:Type 1 diabetes mellitus without complication (HCC) Use one Dexcom G6 transmitter every 90 days 1 each 4 Active insulin aspart (NovoLOG) 100 unit/mL vial for injectionIndicat ions:Type 1 diabetes mellitus without complication (HCC) Use per insulin pump: TDD 75 units 70 mL 4 Active Active Problems Problem Noted Date Diagnosed Date Type 1 diabetes mellitus without complication Assessment & Plan (09/19/2023 10:52 AM CDT): -Currently using Omnipod DASH insulin pump and Dexcom -A1C on 09/19/23 was 6.1% -Dexcom download indicates time in range of 76%. She has occasional excursions, but overall stable pattern. Will continue same pump settings for now. -She is not interested in changing to Omnipod 5 at this time. -Advised to call with any concerns/complaints regarding glucose readings -Eye exam is due and she will schedule appt Assessment & Plan (12/18/2022 2:50 PM HAZMAT TECHNICIAN): -Currently using Omnipod insulin pump and Dexcom -A1C on 12/18/22 was 6.2% -Dexcom download indicates some hypoglycemia which she attributes to frequent corrections leading to stacking of insulin. Will adjust correction factor form 60-->50 and follow with her response. She will be following with [facility] throughout . -Advised to call with any concerns/complaints regarding glucose readings -Eye exam is up to date Assessment & Plan (07/15/2022 2:33 PM CDT): -Currently using Omnipod insulin pump and Dexcom -A1C on 07/15/22 was 7.7% -Dexcom download indicates variability but improvement. She has some post meal excursions. Will continue same pump settings for now. She will continue to work on timing of insulin, and work on not overcorrecting. -Discussed diet and activity modifications. -Advised to call with any concerns/complaints regarding glucose readings -Eye exam is up to date -Will order fasting labs Assessment & Plan (01/30/2022 4:18 PM HAZMAT TECHNICIAN): -Currently using Tandem insulin pump and Karina -A1C on 01/30/22 was 8.5% - Karina download indicates persistent pattern of hyperglycemia. Will adjust basal rate to 0.8 units/hr. Will adjust correction factor to 55. Will follow with her response. -Discussed Omnipod 5. -Will send a script for Dexcom as she may have more accuracy than with the Karina -Discussed diet and activity modifications. -Advised to call with any concerns/complaints regarding glucose readings -Eye exam is up to date Assessment & Plan (02/23/2019 12:02 PM CDT): The patient presents today for evaluation of diabetes which was diagnosed in July 2018. She has been told she has type 1 diabetes. C-peptide was measured at 1.76, with a concomitant glucose of 251 on August 04, 2018. She was tried on metformin but could not tolerate it due to GI side effects. She is currently taking Lantus 14 units at bedtime. She has a scale for Humalog that starts at glucose of 200 mg/dl, but she has not had to use it because her glucose readings have all been less than that. Her hemoglobin A1c at today's visit of 02/23/2019 was 7.3%. Will repeat CMP, C- peptide, and insulin antibodies, along with urine microalbumin. She will meet with the critical care educator today and discuss technology for management of her diabetes and for further education. She will be scheduling an eye exam. She will follow-up with me in [address] Cortes in 6 months. Vitamin D deficiency 02/23/2019 Assessment & Plan (07/15/2022 2:23 PM CDT): -Not currently taking Vitamin D -Will repeat level Assessment & Plan (02/23/2019 12:02 PM CDT): Currently taking a vitamin-D supplement. Will repeat vitamin-D level. Knee pain 12/27/2015 Overview (03/06/2017): Knee pain Immunizations Immunization Administration Dates Next Due Tdap 01/11/2020 Surgical History Surgery Date Site/Laterality Comments KNEE SURGERY 12/01/2015 - 11/30/2016 Medical History Medical History Date Comments Hx Other Medical Left knee arthr oscopic partial lateral meniscectom; Comments: WERO 01/29/2016 - Hx Other Medical 07-30-16 Left kn ee arthroscopic subtotal lateral me; Comments: WERO 08/13/2016 - Diabetes mellitus type I (HCC) Anemia Family History Medical History Relation Name Comments Diabetes Mother's Sister Anayeli Other Other 1 No family histo ry of Hypertension; Other Other 2 No family histo ry of Breast cancer; Relation Name Status Comments Father Alive Mother Alive Mother's Sister Anayeli Other 1 Other 2 Social History Tobacco Use Types Packs/Day Years Used Date Smoking Tobacco: Never Smokeless Tobacco: Never Tobacco Cessation:Counseling Given: Not Answered Alcohol Use Standard Drinks/Week Comments No 0 (1 standard drink = 0.6 oz pur e alcohol) Personal Safety Answer Date Recorded Getting School Help Needed Not on file 11/19 Comments Unknown Sex and Gender Information Value Date Recorded Sex Assigned at Not on file Legal Sex Female 9:55 AM HAZMAT TECHNICIAN Gender Identity Not on file Sexual Orientation Not on file Obstetrics History Para Term AB IAB SAB Ectopic Multiple Livin g Live Births 1 Date Outcome GA Total Labor Labor/2nd/3rd Weight Sex Type Anes PTL Michelle A1 A5 Name Clin Last Filed Vital Signs Vital Sign Reading Time Taken Comments Blood Pressure 106/61 09/19/2023 10:07 AM CDT Pulse 86 09/19/2023 10:07 AM CDT Temperature 36.8 C (98.2 F) 09/19/2023 10:07 AM CDT Respiratory Rate 18 11/23/2021 4:33 PM HAZMAT TECHNICIAN Oxygen Saturation 100% 11/23/2021 6:00 PM HAZMAT TECHNICIAN Inhaled Oxygen Concentration - - Weight 96.7 kg (213 lb 3.2 oz) 09/19/2023 10:07 AM CDT Height 154.9 cm (5' 1) 09/19/2023 10:07 AM CDT Body Mass Index 40.28 09/19/2023 10:07 AM CDT Plan of Treatment Health Maintenance Due Date Last Done Comments Cervical Cancer Screening 1996 Depression Screening 1996 Foot Exam 1996 Hepatitis C Screening 1996 Dilated Eye Exam 2006 Regular Well Visit/Exam 18-64 2014 Pneumococcal vaccine <65 (1 of 2 - PCV) 2015 HPV Vaccines (1 - 3-dose SCD M series) 2023 Albumin Creatinine Ratio, Urine 01/27/2024 3, 07/18/2020 Lipid Panel 01/27/2024 01/27/2023, 07/18/2020 TSH Level 01/27/2024 01/27/2023, 07/18/2020 eGFR 01/27/2024 01/27/2023, 11/01, 01/20/2020, Additional history exists Hemoglobin A1C 03/20/2024 09/19/2023, 12/01, 07/15/2022, Additional history exists Influenza Vaccine (#1) 2025 DTaP/Tdap/Td Vaccine (8 - Td or Tdap) 05/20/2033 05/20/2023, 01/11/2020, 07/23/2007, Additional history exists Hepatitis B Screening Completed 01/02/1998 , 1996, 1996 Varicella Vaccines Completed 07/23/2007, 01/09/1999 Procedures Procedure Name Priority Date/Time Associated Diagnosis Comments POCT HEMOGLOBIN A1C Routine 09/19/2023 1 0:17 AM CDT Type 1 diabetes mellitus without complication (HCC) COMPREHENSIVE METABOLIC PANEL Routine 01/27/2023 1:08 PM HAZMAT TECHNICIAN Type 1 diabetes mellitus without complication (HCC) Less than 8 weeks gestation of LIPID PANEL Routine 01/27/2023 1:08 PM HAZMAT TECHNICIAN Type 1 diabetes mellitus without complication (HCC) Less than 8 weeks gestation of ALBUMIN CREATININE RATIO, URINE Routine 01/27/2023 1:08 PM HAZMAT TECHNICIAN Type 1 diabetes mellitus without complication (HCC) Less than 8 weeks gestation of THYROID FUNCTION CASCADE Routine 01/27/2023 1:08 PM HAZMAT TECHNICIAN Type 1 diabetes mellitus without complication (HCC) Less than 8 weeks gestation of from Last 3 Months or Most Recently Relevant to Health Maintenance Results * POCT hemoglobin A1c (09/19/2023 10:17 AM CDT) Hemoglobin A1C, POC 6.1 % Blood 09/19/2023 10:1 7 AM CDT Gita Cotton NP POINT OF CARE TEST ORDERABL ES Final Result * TSH reflex to free T4 (01/27/2023 1:08 PM HAZMAT TECHNICIAN) TSH 1.920 0.450 - 4.500 uIU/mL [facility] - 01 Comment: No apparent thyroid disorder. Additional testing not indicated. In rare instances, Secondary Hypothyroidism as well as Subclinical Hypothyroidism have been reported in some patients with normal TSH values. Blood 01/27/2023 1:08 PM HAZMAT TECHNICIAN 01/27/2023 Narrative [facility] - 01/28/2023 7:09 AM HAZMAT TECHNICIAN Performed at: [facility], [place] [id number] Senior Electrical Design Engineer: Leandro Kaur PhD, Phone: [phone] us Gita Cotton NP LAB BLOOD ORDERABLES Final Result Performing Organization Address [facility] Co de Phone Number [facility] - * Albumin Creatinine Ratio, Urine (01/27/2023 1:08 PM HAZMAT TECHNICIAN) Creatinine ur 52.5 Not Estab. mg/dL [facility] - 01 Microalbumin, ur <3.0 Not Estab. ug/mL [facility] - 01 Comment:Verified by repeat analysis Microalbumin/cre at ratio <6 0 - 29 mg/g creat [facility] - 01 Comment: Normal: 0 - 29 Moderately increased: 30 - 300 Severely increased: >300 Urine 01/27/2023 1:08 PM HAZMAT TECHNICIAN 01/27/2023 Narrative [facility] - 01/28/2023 10:11 AM HAZMAT TECHNICIAN Performed at: [address] [id number] Senior Electrical Design Engineer: Leandro Kaur PhD, Phone: [phone] us Gita Cotton CHIEF SALES OFFICER LAB URINE ORDERABLES Final Result Performing Organization Address [facility] Co de Phone Number [facility] - * (ABNORMAL) Lipid panel (01/27/2023 1:08 PM HAZMAT TECHNICIAN) Cholesterol 193 100 - 199 mg/dL [facility] - 01 Triglycerides 183(H) 0 - 149 mg/dL [facility] - 01 HDL Cholesterol 61 >39 mg/dL [facility] - 01 VLDL 31 5 - 40 mg/dL [facility] - 01 LDL, calculated 101(H) 0 - 99 mg/dL [facility] - 01 Blood 01/27/2023 1:08 PM HAZMAT TECHNICIAN 01/27/2023 Narrative [facility] - 01/28/2023 7:09 AM HAZMAT TECHNICIAN Performed at: [address] [id number] Senior Electrical Design Engineer: Leandro Kaur PhD, Phone: [phone] us Gita Cotton CHIEF SALES OFFICER LAB BLOOD ORDERABLES Final Result Performing Organization Address [facility] Co de Phone Number [facility] - 01 * (ABNORMAL) Comprehensive metabolic panel (01/27/2023 1:08 PM HAZMAT TECHNICIAN) [facility] Glucose 45(L) 70 - 99 mg/dL [facility] - 01 BUN 8 6 - 20 mg/dL [facility] - 01 Creatinine, Serum 0.61 0.57 - 1.00 mg/dL [facility] - 01 eGFR 126 >59 mL/min/1.73 [facility] - 01 BUN/creat ratio 13 9 - 23 [facility] - 01 Sodium 138 134 - 144 mmol/L [facility] - 01 Potassium, sr 4.2 3.5 - 5.2 mmol/L [facility] - 01 Chloride 102 96 - 106 mmol/L [facility] - 01 CO2 24 20 - 29 mmol/L [facility] - 01 Calcium 9.1 8.7 - 10.2 mg/dL [facility] - 01 Protein, sr 6.5 6.0 - 8.5 g/dL [facility] - 01 Albumin 3.9 3.9 - 5.0 g/dL [facility] - 01 Globulin, Total 2.6 1.5 - 4.5 g/dL [facility] - 01 A/G Ratio 1.5 1.2 - 2.2 [facility] - 01 Bilirubin, Total <0.2 0.0 - 1.2 mg/dL [facility] - 01 Alk phos 90 44 - 121 IU/L [facility] - 01 AST 15 0 - 40 IU/L [facility] - 01 ALT 15 0 - 32 IU/L [facility] - 01 Blood 01/27/2023 1:08 PM HAZMAT TECHNICIAN 01/27/2023 Narrative [facility] - 01/28/2023 7:09 AM HAZMAT TECHNICIAN Performed at: 01 - [facility] [id number] Senior Electrical Design Engineer: Leandro Kaur PhD, Phone: [phone] us Gita Cotton CHIEF SALES OFFICER LAB BLOOD ORDERABLES Final Result [facility] - 01 from Last 3 Months or Most Recently Relevant to Health Maintenance Insurance [employer] [place] [employer] [facility] [employer] EXCHANGE AL WORKERS COMPENSATION GENERIC Care Teams Nsh Teacher Relationship Specialty Start Date End Date Diomedes Pastor DO PCP - General Family Medicine 01/15/19
--- NOTE | 2025-08-01 19:47 | ED_ITS ---
HPI - Dizziness General Chief Complaint: Dizziness Stated Complaint: nausea Time Seen by Provider: 08/01/25 19:46 Source: patient Mode of arrival: ambulatory Limitations: no limitations History of Present Illness HPI Narrative: Patient is a 29-year-old female with some dizziness and general malaise this evening. She is diabetic 1 and was concerned about DKA. Her blood sugars have been normal however. MD elicited complaint: dizziness Pertinent past history: other ( Diabetes type 1) Onset (ago): day(s) ( 1) Timing: gradual onset Severity: mild Description: lightheadedness Context: other ( patient having some dizziness this evening and uneasy feeling with malaise and was concerned about illness at this time) History of similar symptoms: Yes Exacerbating factors: nothing Relieving factors: nothing Associated symptoms: denies other symptoms Associated neuro symptoms: other ( none) Related Data Allergies Allergy/AdvReac Type Severity Reaction Status Date / Time No Known Allergies Allergy Unknown Verified 02/01/25 11:07 Review of Systems 2 Review of Systems: All systems reviewed & are unremarkable except as noted in HPI and below Constitutional: Constitutional: Reports no additional constitutional complaints Eyes: Eyes: Reports no additional eye complaints ENT: Reports system reviewed and no additional complaints, except as documented Cardiovascular: Cardiovascular: Reports no additional cardiovascular complaints Respiratory: Respiratory: Reports no additional respiratory complaints Gastrointestinal: Gastrointestinal: Reports no additional gastrointestinal complaints Genitourinary: Genitourinary: Reports no additional female genitourinary complaints Musculoskeletal: Musculoskeletal: Reports no additional musculoskeletal complaints Integumentary/Breasts: Skin/Breast: Reports system reviewed and no additional complaints, except as docu Neurologic: Reports system reviewed and no additional complaints, except as documented Psychiatric: Psychiatric: Reports no additional psychiatric complaints Endocrine: Endocrine: Reports no additional endocrine complaints Hematologic/Lymphatic: Hematologic/Lymphatic: Reports no additional hematologic/lymphatic complaints Allergic/Immunologic: Allergic/Immunologic: Reports no additional allergic/immunologic complaints [facility] Past Medical History Medical History Diabetes mellitus type 1, uncomplicated, on senior care insulin pump Musculoskeletal disorder Surgical History Surgical History History of section History of orthopedic surgery lt knee Family History Family History Mother Thyroid disease Social History Social History Smoking status: Never smoker Second hand tobacco smoke exposure: No Alcohol intake: current Substance use: never Substance use type: does not use Lack of Transportation: No Lack of Food: Never True Current Housing: I Have Housing Concerned About Future Housing: No Difficulty Paying Gas/Electric Bills: No Difficulty Paying for Meds: No Currently Unemployed: No Education: High School Diploma/GED Difficulty w/ Childcare or Family Care: No Living arrangements: with family Additional living arrangements comments: SISTER Occupation/Education: occupation 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 Gender identity (if verbalized by the patient): Female Spiritual care concerns: No Exam 2 Const: General: healthy appearing Nutritional Appearance: well nourished Orientation/consciousness: patient oriented x3 HENMT: Head: normal to inspection Ears: TM's normal bilaterally F ileana/Nose/Sinus: Normal external nose present Eyes: Conjunctivae: conjunctivae normal Pupils: Equal, round and reactive pupils present EOM: EOMs intact bilaterally Neck: Neck: normal visual inspection Chest: Chest palpation & inspection: normal inspection of the chest Resp: Effort & Inspection: normal respiratory effort and not labored A uscultation: clear to auscultation bilaterally and no crackles Cardio: Rate: regular rate Rhythm: regular rhythm Heart sounds: no murmurs GI: Inspection: non-distended Auscultation: normal bowel sounds : General: Yes bladder normal to palpation Back/Spine/Pelvis: Back: no CVA tenderness Skin: General skin exam: normal color Rashes: no rashes Wounds: no wounds Neuro: General: patient oriented x3, moves all extremities and no meningeal signs Other: fast exam negative, NIH score 0, GCS is 15 Extrem: General: normal to inspection and no clubbing, cyanosis or edema Psych: Mental Status: mental status grossly normal Affect: normal affect Attitude: cooperative Course Vital Signs Vital signs: Vital Signs Temperature 36.4 C 08/01/25 19:28 Pulse Rate 97 08/01/25 19:28 Respiratory Rate 18 08/01/25 19:28 Blood Pressure 121/80 08/01/25 19:28 Pulse Oximetry 99 08/01/25 19:28 Oxygen Delivery Room Air 08/01/25 19:28 Temperature 36.6 C 08/01/25 21:22 Pulse Rate 80 08/01/25 21:22 Respiratory Rate 18 08/01/25 21:22 Blood Pressure 102/69 08/01/25 21:22 Pulse Oximetry 97 08/01/25 21:22 Oxygen Delivery Room Air 08/01/25 21:22 MDM - Dizziness MDM Narrative Medical decision making narrative: patient is a 29-year-old female with dizziness and uneasy/ malaise feeling this evening. We will do a generic workup at this time. Monitor for DKA. Lab Data Attestation: I reviewed the patient's lab results. 08/01/25 20:26 08/01/25 20:26 Labs: Lab Results 08/01/25 08/01/25 08/01/25 Range/Units 19:33 19:39 19:57 WBC (4.8-10.8) K/mm3 RBC (4.20-5.40) M/mm3 Hgb (12.0-15.0) g/dL Hct (35.0-49.0) % MCV (78.0-102.0) fL MCH (27.0-31.0) pg MCHC (32-36) g/dL RDW (11.6-14.4) % Plt Count (150-420) K/mm3 MPV (9.2-11.8) fl Immature Gran % (Auto) (0.0-0.0) % Neut % (Auto) (50.0-70.0) % Lymph % (Auto) (18.0-42.0) % [place] % (Auto) (2.0-11.0) % Eos % (Auto) (1.0-6.0) % Baso % (Auto) (0.0-1.0) % Lymph # (Auto) (1.10-4.50) K/mm3 [place] # (Auto) (0.10-0.90) K/mm3 Eos # (Auto) (0.02-0.50) K/mm3 Baso # (Auto) (0.00-0.10) K/mm3 Abs Immat Gran (auto) (0.00-0.00) K/mm3 Absolute Neuts (auto) (1.70-7.20) K/mm3 Absolute Nucleated RBC (0.00-0.00) K/mm3 Nucleated RBC % (0-0.0) % Sodium (137-145) mmol/L Potassium (3.4-5.0) mmol/L Chloride (98-107) mmol/L Carbon Dioxide (22-30) mmol/L Anion Gap (4-12) mmol/L BUN (7-17) mg/dL Creatinine (0.7-1.0) mg/dL Estim Creat Clear Calc ml/min Estimated GFR (59 - ) Glucose (65-110) mg/dL POC Capillary Glucose 153 H (65-105) mg/dl Calculated Osmolality (285-295) mOsm/kg Calcium (8.4-10.2) mg/dL Total Bilirubin (0.2-1.3) mg/dL AST (14-36) U/L ALT (6-35) U/L Alkaline Phosphatase (38-126) U/L Total Protein (6.3-8.2) g/dL Albumin (3.5-5.1) g/dL Urine Color Light yellow (Yellow) Urine Appearance Clear (Clear) Urine pH 8.0 (5.0-8.0) Ur Specific [place] 1.020 (1.010-1.020) Urine Protein Negative (Negative) Urine Glucose (UA) Negative (Negative) Urine Ketones Trace H (Negative) Ur Blood (Man) Negative (Negative) Urine Nitrate Negative (Negative) Urine Bilirubin Negative (Negative) Urine Urobilinogen 0.2 (0.2-1.0) mg/dL Leukocyte Esterase Rfl Negative (Negative) MAREK/UL Urine Test Acetone Level (Negative) Influenza A (RT-PCR) Negative (Negative) Influenza B (RT-PCR) Negative (Negative) RSV (RT-PCR) Negative (Negative) SARS-CoV-2 RNA (RT-PCR) Negative (Negative) 08/01/25 08/01/25 Range/Units 19:58 20:26 WBC 9.6 (4.8-10.8) K/mm3 RBC 4.29 (4.20-5.40) M/mm3 Hgb 12.6 (12.0-15.0) g/dL Hct 37.9 (35.0-49.0) % MCV 88.3 (78.0-102.0) fL MCH 29.4 (27.0-31.0) pg MCHC 33.2 (32-36) g/dL RDW 11.9 (11.6-14.4) % Plt Count 325 (150-420) K/mm3 MPV 9.9 (9.2-11.8) fl Immature Gran % (Auto) 0.2 H (0.0-0.0) % Neut % (Auto) 70.1 H (50.0-70.0) % Lymph % (Auto) 22.9 (18.0-42.0) % [place] % (Auto) 4.5 (2.0-11.0) % Eos % (Auto) 1.9 (1.0-6.0) % Baso % (Auto) 0.4 (0.0-1.0) % Lymph # (Auto) 2.19 (1.10-4.50) K/mm3 [place] # (Auto) 0.43 (0.10-0.90) K/mm3 Eos # (Auto) 0.18 (0.02-0.50) K/mm3 Baso # (Auto) 0.04 (0.00-0.10) K/mm3 Abs Immat Gran (auto) 0.02 H (0.00-0.00) K/mm3 Absolute Neuts (auto) 6.72 (1.70-7.20) K/mm3 Absolute Nucleated RBC 0.00 (0.00-0.00) K/mm3 Nucleated RBC % 0.0 (0-0.0) % Sodium 140 (137-145) mmol/L Potassium 4.4 (3.4-5.0) mmol/L Chloride 103 (98-107) mmol/L Carbon Dioxide 29 (22-30) mmol/L Anion Gap 8 (4-12) mmol/L BUN 13 (7-17) mg/dL Creatinine 1.00 (0.7-1.0) mg/dL Estim Creat Clear Calc 84 ml/min Estimated GFR > 60 (59 - ) Glucose 164 H (65-110) mg/dL POC Capillary Glucose (65-105) mg/dl Calculated Osmolality 294 (285-295) mOsm/kg Calcium 9.3 (8.4-10.2) mg/dL Total Bilirubin 0.5 (0.2-1.3) mg/dL AST 23 (14-36) U/L ALT 16 (6-35) U/L Alkaline Phosphatase 71 (38-126) U/L Total Protein 7.3 (6.3-8.2) g/dL Albumin 4.5 (3.5-5.1) g/dL Urine Color (Yellow) Urine Appearance (Clear) Urine pH (5.0-8.0) Ur Specific [place] (1.010-1.020) Urine Protein (Negative) Urine Glucose (UA) (Negative) Urine Ketones (Negative) Ur Blood (Man) (Negative) Urine Nitrate (Negative) Urine Bilirubin (Negative) Urine Urobilinogen (0.2-1.0) mg/dL Leukocyte Esterase Rfl (Negative) MAREK/UL Urine Test Negative Acetone Level Negative (Negative) Influenza A (RT-PCR) (Negative) Influenza B (RT-PCR) (Negative) RSV (RT-PCR) (Negative) SARS-CoV-2 RNA (RT-PCR) (Negative) Discharge Plan Discharge Clinical Impression: Viral syndrome Patient Disposition: Home Condition: Stable Instructions: Viral Syndrome (ED) Patient Language: French Prescriptions: No Action Gvoke HypoPen 2-Pack 1 mg/0.2 mL auto-injector 1 mg subcut ONCE Qty: 0.4 4RF Rx Instructions: may repeat once after 15 minutes if no response (DME) urine glucose-ketones test Strip See Rx Instructions .ROUTE .MEDSUPPLY Qty: 50 0RF Rx Instructions: As directed glucose [Dex4 Glucose] 4 gram tablet,chewable 16 g PO Q15M PRN (Reason: hypoglycemia) Qty: 60 1RF Rx Instructions: until symptoms of low blood sugar are controlled (DME) Omnipod Dash Pods (Gen 4) Cartridge SUBCUT Qty: 60 1RF Rx Instructions: Use to administer insulin change every 72 hours (DME) Dexcom G6 Sensor Device See Rx Instructions .ROUTE .MEDSUPPLY Qty: 9 4RF Rx Instructions: Use to Monitor Glucose ; Change every 10 days (DME) Dexcom G6 Transmitter Device See Rx Instructions .ROUTE .MEDSUPPLY Qty: 1 3RF Rx Instructions: Use to monitor glucose; change every 90 days insulin lispro [Humalog U-100 Insulin] 100 unit/mL solution 80 unit continuous subcutaneous infusion DAILY MDD 80 Qty: 80 1RF Follow-up/Referrals: Anjum,Stephanie Vegas MD [Primary Care Provider, [facility]] Time of Disposition: 21:17
--- NOTE | 2025-08-01 20:00 | PC.NURSE ---
covid swab sent to lab 1944
[2025-08-01 20:07] LABS: Add Urine Microscopic? NO; Appearance Urine Clear (Clear); Glucose Urine UA Negative (Negative); Leukocyte Esterase Ur Negative LEU/UL (Negative); Nitrate Urine Negative (Negative); Specific Grav Ur 1.020 (1.010-1.020)
[2025-08-01 20:11] LABS: Pregnancy On Board Control Positive
[2025-08-01 20:29] LABS: Hematocrit 37.9 % (35.0-49.0); Hemoglobin 12.6 g/dL (12.0-15.0); Immature Granulocyte Percent A 0.2 % (0.0-0.0); Lymphocytes Absolute Auto 2.19 K/mm3 (1.10-4.50); Mean Corpuscular HGB Conc 33.2 g/dL (32-36); Mean Corpuscular Hemoglobin 29.4 pg (27.0-31.0); Mean Corpuscular Volume 88.3 fL (78.0-102.0); Nucleated Red Blood Cells Absolute Auto 0.00 K/mm3 (0.00-0.00); Nucleated Red Blood Cells Perc 0.0 % (0-0.0); Platelet Count Result 325 K/mm3 (150-420); Red Blood Count 4.29 M/mm3 (4.20-5.40); White Blood Count 9.6 K/mm3 (4.8-10.8)
[2025-08-01 20:29] LABS: Influenza A QL RT-PCR Negative (Negative); Influenza B QL RT-PCR Negative (Negative); RSV RNA, RT-PCR Negative (Negative); SARS-CoV-2 RNA PCR Negative (Negative)
[2025-08-01 20:47] LABS: Alanine Aminotransferase 16 U/L (6-35); Albumin Level 4.5 g/dL (3.5-5.1); Alkaline Phosphatase 71 U/L (38-126); Anion Gap 8 mmol/L (4-12); Aspartate Amino Transferase 23 U/L (14-36); Bilirubin,Total 0.5 mg/dL (0.2-1.3); Blood Urea Nitrogen 13 mg/dL (7-17); Calcium 9.3 mg/dL (8.4-10.2); Carbon Dioxide 29 mmol/L (22-30); Chloride 103 mmol/L (98-107); Estimated CRCL calculation 84 ml/min; Estimated Glomerular Filt Rate > 60; Glucose 164 mg/dL (65-110); Osmolality Calculated 294 mOsm/kg (285-295); Potassium 4.4 mmol/L (3.4-5.0); Sodium 140 mmol/L (137-145); Total Protein 7.3 g/dL (6.3-8.2)
[2025-08-01 21:22] VITALS: BP 102/69; PULSE 80; RESP 18; TEMP 36.6; O2SAT 97
== END 2025-08-01 21:22 | disposition home or self-care (01) ==
PROVIDERS: Emergency Provider Emergency Medicine; PCP Family Medicine
DX: B34.9 Viral infection, unspecified (principal); E10.9 Type 1 diabetes mellitus without complications; Z20.822 Contact with and (suspected) exposure to COVID-19
CPT/HCPCS: 36415; 80053; 81003; 81025; 82010; 82948; 85025; 87637; 99283

== ENCOUNTER 2025-08-26 13:36 | Emergency (ER) | payer BC, SELFPAY ==
--- OUTSIDE RECORDS SUMMARY | 2025-08-26 13:38 | XMS_ITS | Clinical Summary ---
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
--- OUTSIDE RECORDS SUMMARY | 2025-08-26 13:38 | XMS_ITS | Clinical Summary ---
Author Organization [facility] Address [address] [place] [address] Phone Care Team Providers Care Lead Pony Rider Name Role Phone Stephanie Valero MD Primary Care Provider Vincent Deleon MD Unavailable [phone] MD Unavailable Allergies No known active allergies Medications ursodiol (ACTIGALL) 250 MG Tablet Take 250 [...] 11/23/20 21 Active Lancets (OneTouch Delica Plus [id number]) [facility] USE LANCETS TO CHECK GLUCOSE 4 TIMES DAILY 08/12/20 19 Active insulin glargine-yfgn 100 UNIT/ML Solution Pen-injector INJECT 18 UNITS SUBCUTANEOUSLY EVERY MORNING NEEDED FOR INSULIN PUMP MALFUNCTION Active hydrOXYzine (VISTARIL) 25 MG Capsule Take 25 mg by mouth. 07/03/20 23 Active Glucose Blood (Precision QID Test) Strip OneTouch Verio strips Active Glucagon (Gvoke HypoPen 2-Pack) 1 MG/0.2ML Solution Auto-injector INJECT 1MG (0.2ML) SUBCUTANEOUSLY ONCE. MAY REPEAT ONCE AFTER 15 MINUTES IF NO RESPONSE Active docusate sodium 100 MG Capsule Take 1 Capsule by mouth daily. 07/18/20 23 Active Tirzepatide (Mounjaro) 2.5 MG/0.5ML Solution Auto-injector 2.5 mg by Subcutaneous route once a week. 2 mL 04/06/20 25 Active Additional Information Patient not taking.Reported on 08/09/2025 Continuous Glucose Transmitter (Dexcom G6 Transmitter) Misc Every 3 months 1 Each 3 08/09/20 25 Active Continuous Glucose Sensor (Dexcom G6 Sensor) Misc Every 10 days 9 Each 3 08/09/20 25 Active topiramate (TOPAMAX) 25 MG Tablet Take 1 Tablet by mouth daily. 30 Tablet 08/09/20 25 Active Insulin Disposable Pump (Omnipod 5 [id number] Pods Gen 5) Misc Every 48 hrs 45 Each 1 08/09/20 25 Active phentermine hcl (ADIPEX-P) 8 MG TabletIndicatio ns:Class 3 severe obesity due to excess calories with serious comorbidity and body mass index (BMI) of 40.0 to 44.9 in adult Take 1 Tablet by mouth daily. 30 Each 08/10/20 25 Active Insulin Disposable Pump (Omnipod 5 [id number] Intro Gen 5) Kit Use as directed 1 Kit 08/16/20 25 Active insulin lispro (HumaLOG) 100 UNIT/ML Solution Up to 100 units per day according to insulin pump settings. 90 mL 1 08/24/20 25 Active NovoLOG 100 UNIT/ML Solution ADMINISTER 70 UNITS PER DAY VIA INSULIN PUMP 08/17/20 24 025 Discontin ued(Formu karla change) insulin lispro (HumaLOG) 100 UNIT/ML Solution USE PER INSULIN PUMP, TOTAL DAILY DOSE 50 UNITS 04/18/20 22 025 Discontin ued(Reord er) Insulin Disposable Pump (Omnipod DASH Pods, Gen 4,) Misc 1 Each by Does not apply route. 06/11/20 025 Discontin ued(Dupli carolina Order) Continuous Glucose Transmitter (Dexcom G6 Transmitter) Misc USE ONE DEXCOM G6 TRANSMITTER EVERY 90 DAYS 12/13/19 025 Discontin ued(Reord er) Continuous Glucose Sensor (Dexcom G6 Sensor) Misc USE TO MONITOR GLUCOSE; CHANGE EVERY 10 DAYS 025 Discontin ued(Reord er) Continuous Glucose Sensor (Dexcom G6 Sensor) Misc CHANGE DEXCOM G6 SENSOR EVERY 10 DAYS 01/11/20 025 Discontin ued(Dupli carolina Order) phentermine hcl (ADIPEX-P) 8 MG TabletIndicatio ns:Class 3 severe obesity due to excess calories with serious comorbidity and body mass index (BMI) of 40.0 to 44.9 in adult Take 1 Tablet by mouth daily. 30 Each 08/09/20 025 Discontin ued(Reord er) Insulin Disposable Pump (Omnipod 5 [id number] Intro Gen 5) Kit Every 48 hrs 1 Kit 08/09/20 025 Discontin ued(Reord er) Active Problems Problem Noted Date Diagnosed Date Type 1 diabetes mellitus without complication Encounters Date Type Department Care Team Description 08/09/2025 3:15 PM CDT Office Visit [facility] - Endocrinology [facility] [address] [place] [address] MD Type 1 diabetes mellitus without complication (Primary Dx); Insulin pump titration; Class 3 severe obesity due to excess calories with serious comorbidity and body mass index (BMI) of 40.0 to 44.9 in adult; Hypoglycemia; New medication added Discharge Disposition: Discharged to home or Selfcare 08/09/2025 Travel from Last 3 Months Immunizations Immunization Administration [...] Sign Reading Time Taken Comments Blood Pressure 120/68 08/09/2025 3:06 PM CDT Pulse 82 08/09/2025 3:06 PM CDT Temperature 36.5 C (97.7 F) 08/09/2025 3:06 PM CDT Respiratory Rate 22 08/09/2025 3:06 PM CDT Oxygen Saturation 100% 08/09/2025 3:06 PM CDT Inhaled Oxygen Concentration - - Weight 109.1 kg (240 lb 9.6 oz) 08/09/2025 3:06 PM CDT Height 154.9 cm (5' 1) 02/11/2025 10:2 9 AM CDT Body Mass Index 45.46 02/11/2025 10:29 AM CDT Plan of Treatment Upcoming Encounters Date Type Department Care Team (Late st Contact Info) Description 09/05/2025 4:30 PM CDT Office Visit [facility] - Family Medicine [facility] [address] [place] [phone] Eliza Montoya, WOODS OVERSEER, PE ELECTRICAL ENGINEER [address] [facility] [address] [place] [phone] 11/08/2025 3:00 PM PAPER DELIVERER Office Visit [facility] Medical [facility] - Endocrinology [facility] [address] [place] [phone] MD [address] [facility] [address] [place] [address] [phone] (work) Health Maintenance Due Date Last Done Comments Diabetes: Eye Exam 1996 Pneumococcal Immunization Combined (1 of 2 - PCV) 2015 Pap Smear 2017 Diabetes: Nephropathy Screening 12/08/2019 12/08/2018 Human Papillomavirus (HPV) Immunization (1 - 3-dose SCDM series) 2023 Welcome to Medicare (IPPE) G0402 12/01/2024 Influenza Immunization (#1) 2025 SARS-COV-2 Immunization ( season) 2025 Diabetes: Hemoglobin A1c 10/07/2025 025, 09/19/2023, 07/21/2023 Diabetes: Foot Exam 04/06/2026 [...] (COMPREHENSIVE METABOLIC PANEL) STAT 12/08/2018 11:45 AM PAPER DELIVERER from Last 3 Months or Most Recently Relevant to Health Maintenance Results * (ABNORMAL) POCT GLYCOSYLATED HEMOGLOBIN (04/06/2025 9:24 AM CDT) HGB-A1C 7.0(A) 4 - 6 % Blood 04/06/2025 9:[address] us Inez [address] MD POINT OF CARE TESTING (MANUAL) F inal Result * (ABNORMAL) CMP (12/08/2018 11:45 AM PAPER DELIVERER) SODIUM 139 136 - 144 mmol/L 12/08/2018 12:22 PM [facility] POTASSIUM 4.0 3.5 - 5.1 mmol/L 12/08/2018 12:22 PM [facility] CHLORIDE 100 100 - 110 mmol/L 12/08/2018 12:22 PM [facility] CO2, VENOUS 23 22 - 32 mmol/L 12/08/2018 12:22 PM [facility] ANION GAP 20.0 8.0 - 20.0 mmol/L 12/08/2018 12:22 PM [facility] GLUCOSE 253(H) 70 - 99 mg/dL 12/08/2018 12:22 PM [facility] BUN 9 6 - 20 mg/dL 12/08/2018 12:22 PM [facility] CREATININE, BLOOD 0.78 0.60 - 1.10 mg/dL 12/08/2018 12:22 PM [facility] BUN/CREATININE RATIO 12 12 - 20 ratio 12/08/2018 12:22 PM [facility] TOTAL PROTEIN 7.8 6.0 - 8.3 g/dL 12/08/2018 12:22 PM [facility] ALBUMIN 4.6 3.5 - 5.2 g/dL 12/08/2018 12:22 PM [facility] Comment: The colormetric methods used for the determination of Albumin may lead to falsely elevated test results in patients suffering from renal failure or insufficiency due to interference with other proteins. A/G RATIO 1.4 1.0 - 2.0 12/08/2018 12:22 PM [facility] CALCIUM 9.4 8.9 - 10.3 mg/dL 12/08/2018 12:22 PM [facility] T BILI 0.5 <=1.2 mg/dL 12/08/2018 12:22 PM PAPER DELIVERER [facility] SGOT (AST) 15 <=32 U/L 12/08/2018 12:22 PM [facility] SGPT (ALT) 17 <=33 U/L 12/08/2018 12:22 PM PAPER DELIVERER [facility] ALKALINE PHOSPHATASE 70 35 - 105 U/L 12/08/2018 12:22 PM [facility] GFR, EST. NONAFRICAN >60 >=60 12/08/2018 12:22 PM PAPER DELIVERER [facility] GFR, EST. >60 >=60 019 12:22 PM [facility] Comment: Creatinine Clearance is the preferred criteria for selecting drug dose adjustments in renally impaired patients. The GFR is provided as additional pertinent clinical information. GFR is reported in mL/min/1.73 sq m. Blood specimen (specimen) Venipuncture / Unknown 12/08/2018 11:45 AM PAPER DELIVERER 12/08/2018 11:56 AM PAPER DELIVERER Aidan Ramachandran MD CHEMISTRY ORDERABLES Final Result [facility] [address] [place] [address] from Last 3 Months or Most Recently Relevant to Health Maintenance Insurance MEDICAID [place] Care Teams Lead Pony Rider Relationship Specialty Start Date End Date Stephanie Valero MD PCP - General Family Medicine 02/11/25 Vincent Brumfield MD [address] [address] Consulting Physician General Surgery 02/11/[address] MD [address] [address] Consulting Physician Endocrinology 04/04/25
--- OUTSIDE RECORDS SUMMARY | 2025-08-26 13:38 | XMS_ITS | Clinical Summary ---
Author Organization [facility] Address [address] [facility] [place] [address] Care Team Providers Care Energy And Sustainability Manager Name Role Phone Jeffry Capps MD Primary Care Provider [phone] Gladys Reeves APRN-PATIENT SERVICES ASSISTANT Unavailable [phone] Source Comments [facility],non-owned Affiliates and Associated Physician Practices is amultiple site organization consisting of ambulatory clinics and hospital sitesin [place], [place], [place] and [place]. This disclosure is being madepursuant to the Care Everywhere program and may not contain all information available regarding this patient. Last updated 18.[facility] Allergies No known active allergies Medications * [...] 1 diabetes mellitus without complication Overview (01/18/2023): [facility] Endocrinology- see Care Everywhere -Currently using Omnipod insulin pump and Dexcom -A1C on 12/18/22 was 6.2% -Dexcom download indicates some hypoglycemia which she attributes to frequent corrections leading to stacking of insulin. Will adjust correction factor form 60-->50 and follow with her response. She will be following with [facility] throughout . 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 Not on file Not [...] CREATININE 07/15/20242022, 07/14/2023, 07/07/2023, Additional history exists DEPRESSION SCREENING 12/01/2024 04/11/2023 DIABETES - URINE PROTEIN SCREENING 12/01/2024 07/14/2023, 07/07/2023, 06/30/2023, Additional history exists DIABETES RETINOPATHY SCREENING 02/28/2025 02/28/2023 COVID-19 VACCINE ( season) 2025 INFLUENZA VACCINE (#1) 2025 DTAP/TDAP/TD VACCINES (9 [...] HEPATITIS C ANTIBODY Routine 01/27/2023 1:09 PM SALES ORDER PROCESSOR High-risk in first trimester from Last 3 Months or Most Recently Relevant to Health Maintenance Results * HEMOGLOBIN A1C - POINT OF CARE (AMB) [facility] (07/21/2023 2:31 PM CDT) Hemoglobin A1c POCT 5.2 % [facility] [address] BLOOD SPECIMEN / Unknown 07/21/2023 2:31 PM CDT Juana Sharp TESTER EQUIPMENT-PATIENT SERVICES ASSISTANT LAB - POINT OF CARE OR DERABLES Final [place] [address], [facility] [phone] * (ABNORMAL) COMPREHENSIVE METABOLIC PANEL (07/15/2023 2:15 AM CDT) Glucose 144(H) 70 - 105 mg/dL 07/15/2023 3:28 AM CDT [facility] Sodium 138 136 - 145 mmol/L 07/15/2023 3:28 AM CDT [facility] Potassium 3.8 3.5 - 5.1 mmol/L 07/15/2023 3:28 AM CDT [facility] Chloride 111(H) 98 - 107 mmol/L 07/15/2023 3:28 AM CDT [facility] CO2 18(L) 22 - 29 mmol/L 07/15/2023 3:28 AM CDT [facility] Calcium 7.7(L) 8.4 - 10.4 mg/dL 07/15/2023 3:28 AM CDT [facility] Anion Gap 9 6 - 16 mmol/L 07/15/2023 3:28 AM CDT [facility] BUN 8 5.3 - 18.7 mg/dL 07/15/2023 3:28 AM CDT [facility] Creatinine 0.83 0.57 - 1.11 mg/dL 07/15/2023 3:28 AM CDT [facility] Alkaline Phosphatase 155(H) 40 - 150 U/L 07/15/2023 3:28 AM CDT [facility] ALT 22 0 - 55 U/L 07/15/2023 3:28 AM CDT [facility] AST 39(H) 5 - 34 U/L 07/15/2023 3:28 AM CDT [facility] Protein Total 5.0(L) 6.4 - 8.3 gm/dL 07/15/2023 3:28 AM CDT [facility] Albumin 2.1(L) 3.4 - 5.0 gm/dL 07/15/2023 3:28 AM CDT [facility] Bilirubin Total 1.1 0.2 - 1.2 mg/dL 07/15/2023 3:28 AM CDT [facility] eGFR by CKD-EPI >90 >=90 mL/min/1.7 3 m2 07/15/2023 3:28 AM CDT [facility] Blood BLOOD SPECIMEN / Unknown Venipuncture / Unknown 07/15/2023 2:15 AM CDT 07/15/2023 3:06 AM CDT Jah Walsh MD LAB - CHEMISTRY ORDERA BLES Final Result Performing Organization Address City/[facility]/ZIP Co de Phone Number [facility] [address] [place] [address] * (ABNORMAL) PROTEIN CREATININE RATIO URINE RANDOM PNL (07/14/2023 6:04 PM CDT) Pathologist [facility] Protein Urine 21.7(H) <11.9 mg/dL 07/14/2023 6:59 PM CDT [facility] Creatinine Urine 128.12 mg/dL 07/14/2023 6:59 PM CDT [facility] Protein/Creatin ine Ratio Urine 0.17 07/14/2023 6:59 PM CDT [facility] Urine URINE SPECIMEN OBTAINED BY CLEAN CATCH PROCEDURE / Unknown Collection / Unknown 07/14/2023 6:04 PM CDT 07/14/2023 6:37 PM CDT Jah Walsh MD LAB - URINE CHEMISTRY ORDERABLES Final Result [facility] [address] [place] [address] * HIV-1 HIV-2 ANTIBODY + HIV P24 AG PANEL (05/20/2023 2:37 PM CDT) Pathologist [facility] HIV Screen 4th Generation w Reflex Non Reactive Non Reactive [facility] INSURANCE BILL Comment: HIV Negative HIV-1/HIV-2 antibodies and HIV-1 p24 antigen were NOT detected. There is no laboratory evidence of HIV infection. Blood BLOOD SPECIMEN / Unknown 05/20/2023 2:37 PM CDT 05/20/2023 Narrative Resulting Agency Comment [facility]: [facility] [address] [facility] [id number] us Juana Sharp TESTER EQUIPMENT-PATIENT SERVICES ASSISTANT LAB - CHEMISTRY ORDERA BLES Final Result Performing Organization Address City/[facility]/ZIP Co de Phone Number [facility] INSURANCE BILL [address] [place] [address] * EYE EXAM (02/28/2023) Anatomical Region Laterality Modality Other 02/28/2023 Narrative 02/28/2023 Ordered by an unspecified provider. us Scanned Document SCANNING ONLY Final Result * HEPATITIS C ANTIBODY (01/27/2023 1:09 PM SALES ORDER PROCESSOR) Hepatitis C Antibody Non Reactive Non Reactive [facility] INSURANCE BILL Comment: HCV antibody alone does not differentiate between previously resolved infection and active infection. Equivocal and Reactive HCV antibody results should be followed up with an HCV RNA test to support the diagnosis of active HCV infection. Blood BLOOD SPECIMEN / Unknown 01/27/2023 1:09 PM SALES ORDER PROCESSOR 01/27/2023 Narrative Resulting Agency Comment Lab Testing performed at: [facility] [address] [facility] [id number] us Chanel Vale MD LAB - CHEMISTRY ORDERA BLES Final Result Performing Organization Address [facility] Co de Phone Number [facility] INSURANCE BILL [address] [place] [address] from Last 3 Months or Most Recently Relevant to Health Maintenance Insurance [facility] MEDICAID Advance Directives * Full Code (Latest Code Status on File) Date Activated Date Inactivated Comments 07/17/2023 1:55 PM 07/18/2023 3:05 PM * Full Code Date Activated Date Inactivated Comments 07/14/2023 6:44 PM 07/15/2023 6:01 AM * Full Code Date Activated Date Inactivated Comments 06/22/2023 7:26 PM 06/23/2023 1:52 PM Care Teams Energy And Sustainability Manager Relationship Specialty Start Date End Date Jeffry Capps MD [address] [place] [phone] PCP - General 10/09/22 Gladys Reeves APRN-GUICHO [address] [address] PCP - Attributed-[facility] [employer] ID 01/01/24
--- OUTSIDE RECORDS SUMMARY | 2025-08-26 13:38 | XMS_ITS | Encounter Summary ---
Author Organization [facility] Address [address] [place] [address] Phone Care Team Providers Care City Library Director Name Role Phone Pachecomeseretsánchezrowena Diomedes Goldberg Primary Care Provider [phone] Stephanie Valero MD Primary Care Provider Stephanie Ramirez MD Primary Care Provider Vincent Deleon MD Unavailable Inez Lane MD Unavailable Encounter Details Date Type Department Care Team (Late Contact Info) Description 01/20/2025 Transcribe Orders [facility] Cardiac Electrician [address] [place] [address] Stephanie Valero MD Social History Tobacco Use Types Packs/Day Years [...] Encounters Date Type Department Care Team (Late Contact Info) Description 09/05/2025 4:30 PM CDT Office Visit [facility] Medical [facility] [address] [place] [address] Eliza Montoya APRN, LEAN MANAGER [address] [facility] [address] [place] [address] 11/08/2025 3:00 PM BI CONSULTANT Office Visit [facility] - [facility]ocrinology - [place] [address] [place] [address] MD [address] [address] documented as of this encounter Visit Diagnoses Not on filedocumented in this encounter Care Teams City Library Director Relationship Specialty Start Date End Date Diomedes Pastor DO [address] [place] [address] PCP - General Family Medicine 12/08/18 01/23/25 Stephanie Valero MD [address] [place] [address] PCP - General Family Medicine 01/24/25 01/30/25 Stephanie Valero MD [address] [place] [address] PCP - General Family Medicine 02/11/25 Vincent Brumfield MD [address] [address] Consulting Physician General Surgery 02/11/[address] MD [address] [address] Consulting Physician Endocrinology 04/04/25 documented as of this encounter
--- OUTSIDE RECORDS SUMMARY | 2025-08-26 13:38 | XMS_ITS | Encounter Summary ---
Author Organization [facility] Address [address] [place] [address] Phone Care Team Providers Care Junior Recruiter Name Role Phone Pachecomeseretsánchezrowena Diomedes Goldberg Primary Care Provider [phone] Stephanie Valero MD Primary Care Provider Stephanie Ramirez MD Primary Care Provider Vincent Deleon MD Unavailable [phone] MD Unavailable Encounter Details Date Type Department Care Team (Late Contact Info) Description 01/20/2025 [facility] [address] [place] [address] Stephanie Valero MD Social History [...] Description 09/05/2025 4:30 PM CDT Office Visit [facility] Medical Group - [facility] [place] [address] [place] [address] Eliza Montoya APRN, MANAGER WATER WASTEWATER #2 [facility] [address] [place] [address] 11/08/2025 3:00 PM OIL EXPELLER Office Visit [facility] - [place] [address] [place] [address] MD #[address] [address] documented as of this encounter Visit Diagnoses Not on filedocumented in this encounter Care Teams Junior Recruiter Relationship Specialty Start Date End Date Diomedes Pastor DO [address] [place] [address] PCP - General Family Medicine 12/08/18 01/23/25 Stephanie Valero MD [address] [place] [address] PCP - General Family Medicine 01/24/25 01/30/25 Stephanie Valero MD [address] [place] [address] PCP - General Family Medicine 02/11/25 Vincent Brumfield MD [address] [address] Consulting Physician General Surgery 02/11/[address] MD [address] [address] Consulting Physician Endocrinology 04/04/25 documented as of this encounter
--- OUTSIDE RECORDS SUMMARY | 2025-08-26 13:38 | XMS_ITS | Encounter Summary ---
Author Organization [facility] Address [address] [facility] [place] [address] Care Team Providers Care Auto Locator Name Role Phone Jeffry Capps MD Primary Care Provider [phone] Jeffry Capps MD Unavailable [phone] Gini Lindsey MD Unavailable [phone] Gladys Reeves [facility] Unavailable [phone] Reason for Visit * Reason Onset Date Comments Nurse Only 12/04/2022 Encounter Details Date Type Department Care Team (Late st Contact Info) Description 12/04/2022 Telephone [facility] Gynecology [facility] [address] [place], [place] [phone] Steve Adams MD [address] [phone] Nurse Only Social History Tobacco Use Types Packs/Day Years Used Date Smoking Tobacco: Never Assessed Comments Unknown Sex and Gender Information Value Date Recorded Sex Assigned at Not on file Legal Sex Female 5:37 AM FRAMING MILL OPERATOR Gender Identity Not on file Sexual Orientation Not on file documented as of this encounter Miscellaneous Notes * Telephone Encounter - Reba Do - 12/04/2022 12:18 PM CST Pt was referred by Dion Cotton @ [facility], pt is 5 weeks and has type I diabetes and needhigh risk provider ING MILL OPERATOR documented in this encounter Plan of Treatment Not on file documented as of this encounter Visit Diagnoses Not on filedocumented in this encounter Additional Health Concerns Infection Onset Date Last Indicated Resolved Time COVID-19 Confirmed 06/22/2023 06/22/2023 4:33 AM CDT documented as of this encounter Care Teams Auto Locator Relationship Specialty Start Date End Date Jeffry Capps MD [address] [place] [address] PCP - General 10/09/22 Jeffry Capps MD [address] [place] [address] PCP - Attributed-[facility] [place] 12/01/22 06/30/23 Gini Lindsey MD [address] [place] [address] PCP - Attributed-[facility] [place] 07/01/23 12/31/23 Gladys Reeves APRN-PHOTO MASK PATTERN GENERATOR [address] [address] PCP - Attributed-[facility] [place] [employer] 01/01/24 documented as of this encounter
--- OUTSIDE RECORDS SUMMARY | 2025-08-26 13:38 | XMS_ITS | Encounter Summary ---
Author Organization [facility] Address [address] [place] [address] Care Team Providers Care Cytopathology Technologist Name Role Phone Jeffry Capps MD Primary Care Provider [phone] Jeffry Capps MD Unavailable Gini Lindsey MD Unavailable Gladys Reeves [facility] Unavailable [phone] Reason for Visit * Reason Onset Date Comments Med Question 06/05/2023 Encounter Details Date Type Department Care Team (Late st Contact Info) Description 06/05/2023 Telephone [facility] - DEFENSE ANALYST [address] [facility] [address] [place] [address] Chanel Vale MD [address] [place] [address] Med Question Social History Tobacco [...] Date Recorded PHQ2 TOTAL SCORE 0 04/08/2023 [facility] - Occupational [...] place to sleep or slept in a penitentiary (including now)? No 05/30/2023 Education Answer Date Recorded What is the highest level of school you have completed or the highest degree you have received? 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 from humalog to novolog (insurance no longer paying for the humalog) Please contact [phone] documented in this encounter Plan of Treatment Not on file documented as of this encounter Visit Diagnoses Not on filedocumented in this encounter Additional Health Concerns Infection Onset Date Last Indicated Resolved Time COVID-19 Confirmed 06/22/2023 06/22/2023 4:33 AM CDT documented as of this encounter Care Teams Cytopathology Technologist Relationship Specialty Start Date End Date Jeffry Capps MD [address] [place] [phone] PCP - General 10/09/22 Jeffry Capps MD [address] [place] [address] PCP - Attributed-[facility] [place] 12/01/22 06/30/23 Gini Lindsey MD [address] [place] [address] PCP - Attributed-[facility] [place] 07/01/23 12/31/23 Gladys Reeves APRN-MANAGER [facility] [address] [address] PCP - Attributed-[facility] [place] /12/24 documented as of this encounter
--- OUTSIDE RECORDS SUMMARY | 2025-08-26 13:38 | XMS_ITS | Encounter Summary ---
Author Organization [facility] Address [address] [place] [address] Care Team Providers Care Instructor Business Education Name Role Phone Jeffry Capps MD Primary Care Provider [phone] Jeffry Capps MD Unavailable Gini Lindsey MD Unavailable [phone] Gladys Reeves APRN-CUSTOM MARINE CANV[employer] FABRICATOR Unavailable [phone] Encounter Details Date Type Department Care Team (Late st Contact Info) Description 06/23/2023 Telephone [facility] Women's Health Maternal & Care [address] [place] [address] Coni Villanueva Social History Tobacco [...] Date Recorded PHQ2 TOTAL SCORE 0 04/08/2023 [facility] - Occupational Stress [...] place to sleep or slept in a correction (including now)? No 06/22/2023 Education Answer Date Recorded What is the highest level of school you have completed or the highest degree you have received? Bachelor's degree (e.g., BA, AB, BS) 01/14/2023 Comments Yes Sex and Gender Information Value Date Recorded Sex Assigned at Not on file Legal Sex Female 5:37 AM PUNCH HAND Gender Identity Not on file Sexual Orientation Not on file Occupation Industry Job Start Date Job End Date [employer] Not on file Not on file Not [...] documented as of this encounter Care Teams Instructor Business Education Relationship Specialty Start Date End Date Jeffry Capps MD [address] [place] [address] PCP - General 10/09/22 Jeffry Capps MD [address] [place] [address] PCP - Attributed-[facility] [place] 12/01/22 06/30/23 Gini Lindsey MD [address] [place] [address] PCP - Attributed-[facility] [place] 07/01/23 12/31/23 Gladys Reeves APRN-CUSTOM MARINE CANVAS FABRICATOR [address] [address] PCP - Attributed-[facility] [place] /12/24 documented as of this encounter
--- OUTSIDE RECORDS SUMMARY | 2025-08-26 13:38 | XMS_ITS | Clinical Summary ---
Author Organization [facility] Address [address] [place] [address] Care Team Providers Care Magnetic Doctor Name Role Phone Diomedes Pastor DO Primary Care Provider [phone] Allergies No known active allergies Medications blood [...] injectionIndicat ions:Type 1 diabetes mellitus without complication USE PER INSULIN PUMP, TOTAL DAILY DOSE 50 UNITS 50 mL 3 2 Active insulin pump cart,auto,BT-cnt r (Omnipod 5 G6 Intro Kit, Gen 5,) cartridge Dispense Omnipod 5 G6 Intro Kit (Gen 5) ND: [address]-91: Use as directed 1 each 2 Active insulin pump cart,cont inf,BT (Omnipod Dash Pods, Gen 4,) cartridgeIndicat ions:Type 1 diabetes mellitus without complication Use with Omnipod Dash insulin pump, change pod every 3 days 30 each 4 Active insulin pump cart,automated,B T (Omnipod 5 G6 Pods, Gen 5,) cartridge Omnipod 5 G6 Pods (Gen 5) Refill 5 pack ND: [address]-97: Change pod every 2 days 45 each 3 4 Active blood-glucose sensor (Dexcom G6 Sensor) deviceIndication s:Type 1 diabetes mellitus without complication Change Dexcom G6 sensor every 10 days 9 each 3 4 Active blood-glucose transmitter (Dexcom G6 Transmitter) deviceIndication s:Type 1 diabetes mellitus without complication Use one Dexcom G6 transmitter every 90 days 1 each 4 Active insulin aspart (NovoLOG) 100 unit/mL vial for injectionIndicat ions:Type 1 diabetes mellitus without complication Use per insulin pump: TDD 75 units [...] appt Assessment & Plan (12/18/2022 2:50 PM SENIOR PUBLICATIONS SPECIALIST): -Currently using Omnipod insulin pump and Dexcom -A1C on 12/18/22 was 6.2% -Dexcom download indicates some hypoglycemia which she attributes to frequent corrections leading to stacking of insulin. Will adjust correction factor form 60-->50 and follow with her response. She will be following with [facility] throughout . -Advised to call with [...] labs Assessment & Plan (01/30/2022 4:18 PM SENIOR PUBLICATIONS SPECIALIST): -Currently using Tandem insulin pump and Karina [...] urine microalbumin. She will meet with the family educator today and discuss technology for management [...] WERO 08/13/2016 - Diabetes mellitus type I Anemia Family History Medical History Relation Name [...] on file Legal Sex Female 9:55 AM SENIOR PUBLICATIONS SPECIALIST Gender Identity Not on file Sexual Orientation [...] CDT Respiratory Rate 18 11/23/2021 4:33 PM SENIOR PUBLICATIONS SPECIALIST Oxygen Saturation 100% 11/23/2021 6:00 PM SENIOR PUBLICATIONS SPECIALIST Inhaled Oxygen Concentration - - Weight 96.7 [...] Level 01/27/2024 01/27/2023, 07/18/2020 eGFR 01/27/2024 01/27/2023, 1203/2021, 01/20/2020, Additional history exists Hemoglobin A1C 03/20/2024 [...] COMPREHENSIVE METABOLIC PANEL Routine 01/27/2023 1:08 PM SENIOR PUBLICATIONS SPECIALIST Type 1 diabetes mellitus without complication (HCC) Less than 8 weeks gestation of LIPID PANEL Routine 01/27/2023 1:08 PM SENIOR PUBLICATIONS SPECIALIST Type 1 diabetes mellitus without complication (HCC) Less than 8 weeks gestation of ALBUMIN CREATININE RATIO, URINE Routine 01/27/2023 1:08 PM SENIOR PUBLICATIONS SPECIALIST Type 1 diabetes mellitus without complication (HCC) Less than 8 weeks gestation of THYROID FUNCTION CASCADE Routine 01/27/2023 1:08 PM SENIOR PUBLICATIONS SPECIALIST Type 1 diabetes mellitus without complication (HCC) [...] reflex to free T4 (01/27/2023 1:08 PM SENIOR PUBLICATIONS SPECIALIST) TSH 1.920 0.450 - 4.500 uIU/mL [facility] - 01 Comment: No apparent thyroid disorder. Additional testing not indicated. In rare instances, Secondary Hypothyroidism as well as Subclinical Hypothyroidism have been reported in some patients with normal TSH values. Blood 01/27/2023 1:08 PM SENIOR PUBLICATIONS SPECIALIST 01/27/2023 Narrative [facility] - 01/28/2023 7:09 AM SENIOR PUBLICATIONS SPECIALIST Performed at: [facility] [id number] Cushion Maker: Leandro Kaur PhD, Phone: [phone] Gita Cotton DIESEL TRACTOR ENGINE MECHANIC LAB BLOOD ORDERABLES Final Result Performing Organization Address City/[facility] Co de Phone Number [facility] - * Albumin Creatinine Ratio, Urine (01/27/2023 1:08 PM SENIOR PUBLICATIONS SPECIALIST) Creatinine ur 52.5 Not Estab. mg/dL [facility] - 01 Microalbumin, ur <3.0 Not Estab. ug/mL [facility] - 01 Comment:Verified by repeat analysis Microalbumin/cre at ratio <6 0 - 29 mg/g creat [facility] - 01 Comment: Normal: 0 - 29 Moderately increased: 30 - 300 Severely increased: >300 Urine 01/27/2023 1:08 PM SENIOR PUBLICATIONS SPECIALIST 01/27/2023 Narrative [facility] - 01/28/2023 10:11 AM SENIOR PUBLICATIONS SPECIALIST Performed at: [place] [address] Cushion Maker: Leandro Kaur PhD, Phone: [phone] Gita Cotton DIESEL TRACTOR ENGINE MECHANIC LAB URINE ORDERABLES Final Result Performing Organization Address [facility] Co de Phone Number [facility] - * (ABNORMAL) Lipid panel (01/27/2023 1:08 PM SENIOR PUBLICATIONS SPECIALIST) Cholesterol 193 100 - 199 mg/dL [facility] - 01 Triglycerides 183(H) 0 - 149 mg/dL [facility] - 01 HDL Cholesterol 61 >39 mg/dL [facility] - 01 VLDL 31 5 - 40 mg/dL [facility] - 01 LDL, calculated 101(H) 0 - 99 mg/dL [facility] - 01 Blood 01/27/2023 1:08 PM SENIOR PUBLICATIONS SPECIALIST 01/27/2023 Narrative [facility] - 01/28/2023 7:09 AM SENIOR PUBLICATIONS SPECIALIST Performed at: [address] [id number] Cushion Maker: Leandro Kaur PhD, Phone: [phone] Gita Cotton DIESEL TRACTOR ENGINE MECHANIC LAB BLOOD ORDERABLES Final Result [facility] - 01 * (ABNORMAL) Comprehensive metabolic panel (01/27/2023 1:08 PM SENIOR PUBLICATIONS SPECIALIST) [facility] Glucose 45(L) 70 - 99 mg/dL [facility] [...] [facility] - 01 Blood 01/27/2023 1:08 PM SENIOR PUBLICATIONS SPECIALIST 01/27/2023 Narrative [facility] - 01/28/2023 7:09 AM SENIOR PUBLICATIONS SPECIALIST Performed at: - [address] [id number] Cushion Maker: Leandro Kaur PhD, Phone: [phone] us Gita Cotton DIESEL TRACTOR ENGINE MECHANIC LAB BLOOD ORDERABLES Final Result [facility] - 01 from Last 3 Months or Most Recently Relevant to Health Maintenance Insurance [employer] [facility] [employer] [facility] [employer] [place] [employer]ATION GENERIC Care Teams Magnetic Doctor Relationship Specialty Start Date End Date Diomedes Pastor DO PCP - General Family Medicine 01/15/19
[2025-08-26 13:45] VITALS: TEMP 36.4
--- NOTE | 2025-08-26 13:48 | ED_ITS ---
HPI - URI/Sore Throat General Chief Complaint: Upper Respiratory Infection Stated Complaint: sore throat Source: patient Mode of arrival: ambulatory Limitations: no limitations History of Present Illness HPI Narrative: Patient is a 29-year-old female with left jaw pain for the past few days. She also has sore throat and swelling of the left cheek area. No fever or chills. She has her wisdom teeth still in place and a dental appointment upcoming. MD elicited complaint: sore throat (Left jaw pain) Pertinent past history: other (None) Onset (ago): day(s) (3) Consistency: constant Severity: moderate Pain scale (0-10): 5 Description of mucous: clear Able to tolerate fluids by mouth: Yes Exacerbating factors: swallowing, speaking and other (Opening and closing her jaw) Relieving factors: rest Context: other (Patient complains of left jaw pain and some left jaw swelling for the past 3 days which may be related to wisdom teeth or another process) Associated symptoms: denies other symptoms Treatments prior to arrival: none Related Data Allergies Allergy/AdvReac Type Severity Reaction Status Date / Time No Known Allergies Allergy Unknown Verified 08/26/25 14:17 Review of Systems Review of Systems: All systems reviewed & are unremarkable except as noted in HPI and below Constitutional: Constitutional: Reports no additional constitutional complaints Eyes: Eyes: Reports no additional eye complaints ENT: Reports system reviewed and no additional complaints, except as documented Cardiovascular: Cardiovascular: Reports no additional cardiovascular complaints Respiratory: Respiratory: Reports no additional respiratory complaints Gastrointestinal: Gastrointestinal: Reports no additional gastrointestinal complaints Genitourinary: Genitourinary: Reports no additional female genitourinary complaints Musculoskeletal: Musculoskeletal: Reports no additional musculoskeletal complaints Integumentary/Breasts: Skin/Breast: Reports system reviewed and no additional complaints, except as docu Neurologic: Reports system reviewed and no additional complaints, except as documented Psychiatric: Psychiatric: Reports no additional psychiatric complaints Endocrine: Endocrine: Reports no additional endocrine complaints Hematologic/Lymphatic: Hematologic/Lymphatic: Reports no additional hematologic/lymphatic complaints Allergic/Immunologic: Allergic/Immunologic: Reports no additional allergic/immunologic complaints [facility] Past Medical History Medical History Diabetes mellitus type 1, uncomplicated, on intermediate insulin pump Musculoskeletal disorder Surgical History Surgical History History of section History of orthopedic surgery lt knee Family History Family History Mother Thyroid disease Social History Social History Smoking status: Never smoker Second hand tobacco smoke exposure: No Alcohol intake: current Substance use: never Substance use type: does not use Lack of Transportation: No Lack of Food: Never True Current Housing: I Have Housing Concerned About Future Housing: No Difficulty Paying Gas/Electric Bills: No Difficulty Paying for Meds: No Currently Unemployed: No Education: High School Diploma/GED Difficulty w/ Childcare or Family Care: No Living arrangements: with family Additional living arrangements comments: SISTER Occupation/Education: occupation Additional occupation/education comments: [employer] Gender identity (if verbalized by the patient): Female Spiritual care concerns: No Exam Const: General: healthy appearing Nutritional Appearance: well nourished Orientation/consciousness: patient oriented x3 HENMT: Head: normal to inspection Ears: external ears normal Face/Nose/Sinus: Normal external nose present Other: Red oropharynx without tonsillar hypertrophy or pus; tender TM area to palpation of the left jaw as well as positive sign pushing in the ear forward on the left and not on the right Eyes: Conjunctivae: conjunctivae normal Pupils: Equal, round and reactive pupils present EOM: EOMs intact bilaterally Neck: Neck: normal visual inspection Chest: Chest palpation & inspection: normal inspection of the chest Resp: Effort & Inspection: normal respiratory effort and not labored Auscultation: clear to auscultation bilaterally and no crackles Cardio: Rate: regular rate Rhythm: regular rhythm Heart sounds: no murmurs GI: Inspection: non-distended GI Palp: Yes Soft to palpation and No Tenderness to palpation present (GI) Auscultation: normal bowel sounds : General: Yes bladder normal to palpation Back/Spine/Pelvis: Back: no CVA tenderness Skin: General skin exam: normal color Rashes: no rashes Wounds: no wo unds Neuro: General: patient oriented x3, moves all extremities and no meningeal signs Extrem: General: normal to inspection Psych: Mental Status: mental status grossly normal Affect: normal affect Attitude: cooperative Course Vital Signs Vital signs: Vital Signs Temperature 36.4 C 08/26/25 13:45 Temperature 36.4 C 08/26/25 13:45 MDM - URI/Sore Throat MDM Narrative Medical decision making narrative: Patient is a 29-year-old female with left jaw pain and sore throat for the past 3 days. Strep test. Examination leads towards TMJ. Lab Data Attestation: I reviewed the patient's lab results. Labs: Lab Results 08/26/25 Range/Units 13:55 Group A Strep (PCR) Not detected (Negative) Discharge Plan Discharge Clinical Impression: TMJ (temporomandibular joint syndrome) Patient Disposition: Home Condition: Stable Patient Language: Bangladeshi Prescriptions: New methylprednisolone [Medrol (Juanjo)] 4 mg tablets,dose pack See Rx Instructions .ROUTE .COMPLEX Qty: 21 0RF Rx Instructions: orally per package directions No Action Gvoke HypoPen 2-Pack 1 mg/0.2 mL auto-injector 1 mg subcut ONCE Qty: 0.4 4RF Rx Instructions: may repeat once after 15 minutes if no response (DME) urine glucose-ketones test Strip See Rx Instructions .ROUTE .MEDSUPPLY Qty: 50 0RF Rx Instructions: As directed glucose [Dex4 Glucose] 4 gram tablet,chewable 16 g PO Q15M PRN (Reason: hypoglycemia) Qty: 60 1RF Rx Instructions: until symptoms of low blood sugar are controlled (DME) Omnipod Dash Pods (Gen 4) Cartridge SUBCUT Qty: 60 1RF Rx Instructions: Use to administer insulin change every 72 hours (DME) Dexcom G6 Sensor Device See Rx Instructions .ROUTE .MEDSUPPLY Qty: 9 4RF Rx Instructions: Use to Monitor Glucose ; Change every 10 days (DME) Dexcom G6 Transmitter Device See Rx Instructions .ROUTE .MEDSUPPLY Qty: 1 3RF Rx Instructions: Use to monitor glucose; change every 90 days insulin lispro [Humalog U-100 Insulin] 100 unit/mL solution 80 unit continuous subcutaneous infusion DAILY MDD 80 Qty: 80 1RF Follow-up/Referrals: UNKNOWN,DOCTOR [Primary Care Provider] Time of Disposition: 14:26
--- OUTSIDE RECORDS SUMMARY | 2025-08-26 14:10 | XMS_ITS | Encounter Summary ---
Author Organization [facility] Address [address] [place] [address] Care Team Providers Care Bias Machine Operator Helper Name Role Phone Jeffry Capps MD Primary Care Provider [phone] Jeffry Capps MD Unavailable Gini Lindsey MD Unavailable Gladys Reeves APRNBAYSTATE [facility] Unavailable [phone] Reason for Visit * Reason Onset Date Comments Nurse Only 12/04/2022 Encounter Details Date Type Department Care Team (Late st Contact Info) Description 12/04/2022 Telephone [facility] [address] [place], [place] [id number] Steve Adams MD [address] [id number] Nurse Only Social History Tobacco Use Types Packs/Day Years Used Date Smoking Tobacco: Never Assessed Comments Unknown Sex and Gender Information Value Date Recorded Sex Assigned at Not on file Legal Sex Female 5:37 AM CAUSTIC PLANT WORKER Gender Identity Not on file Sexual Orientation Not on file documented as of this encounter Miscellaneous Notes * Telephone Encounter - Reba Do - 12/04/2022 12:18 PM CST Pt was referred by Dion Cotton @ [facility], pt is 5 weeks and has type I diabetes and needhigh risk provider TIC PLANT WORKER documented in this encounter Plan of Treatment Not on file documented as of this encounter Visit Diagnoses Not on filedocumented in this encounter Additional Health Concerns Infection Onset Date Last Indicated Resolved Time COVID-19 Confirmed 06/22/2023 06/22/2023 4:33 AM CDT documented as of this encounter Care Teams Bias Machine Operator Helper Relationship Specialty Start Date End Date Jeffry Capps MD [address] [place] [address] PCP - General 10/09/22 Jeffry Capps MD [address] [place] [address] PCP - Attributed-[facility] [place] 12/01/22 06/30/23 Gini Lindsey MD [address] [place] [address] PCP - Attributed-[facility] [employer] [place] 07/01/23 12/31/23 Gladys Reeves APRN-[employer] [address] [address] PCP - Attributed-[facility] [place] 01/01/24 documented as of this encounter
--- OUTSIDE RECORDS SUMMARY | 2025-08-26 14:10 | XMS_ITS | Encounter Summary ---
Author Organization [facility] Address [address] [place] [address] Care Team Providers Care Retail Loan Originator Name Role Phone Jeffry Capps MD Primary Care Provider [phone] Jeffry Capps MD Unavailable Gini Lindsey MD Unavailable [phone] Gladys Reeves APRN-[employer] Unavailable [phone] Encounter Details Date Type Department Care Team (Late st Contact Info) Description 06/23/2023 Telephone [facility] Women's Health Maternal & Care [address] [place] [address] Coni Villanueva Social History Tobacco [...] Date Recorded PHQ2 TOTAL SCORE 0 04/08/2023 [facility] of Occupat ional Health - Occupational Stress [...] place to sleep or slept in a fpc (including now)? No 06/22/2023 Education Answer Date Recorded What is the highest level of school you have completed or the highest degree you have received? 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
--- OUTSIDE RECORDS SUMMARY | 2025-08-26 14:10 | XMS_ITS | Clinical Summary ---
Author Organization [facility] Address [address] [place] [address] Care Team Providers Care Cross Cut Saw Operator Name Role Phone Unavailable Primary Care [...] on file Legal Sex Female 10:23 AM HAND CLOTH EXAMINER Gender Identity Not on file Sexual Orientation [...]
--- OUTSIDE RECORDS SUMMARY | 2025-08-26 14:10 | XMS_ITS | Clinical Summary ---
Author Organization [facility] Address [address] [place] [address] Care Team Providers Care Fruit Or Nut Farmworker Name Role Phone Diomedes Pastor DO Primary Care Provider [phone] Allergies No known active allergies Medications blood [...] 5 G6 Intro Kit (Gen 5) ND: [address]-72: Use as directed 1 each 2 Active insulin pump cart,cont inf,BT (Omnipod Dash Pods, Gen 4,) cartridgeIndicat ions:Type 1 diabetes mellitus without complication Use with Omnipod Dash insulin pump, change pod every 3 days 30 each 4 Active insulin pump cart,automated,B T (Omnipod 5 G6 Pods, Gen 5,) cartridge Omnipod 5 G6 Pods (Gen 5) Refill 5 pack ND: [address]-35: Change pod every 2 days 45 each [...] appt Assessment & Plan (12/18/2022 2:50 PM AGED OR DISABLED CARER): -Currently using Omnipod insulin pump and Dexcom -A1C on 12/18/22 was 6.2% -Dexcom download indicates some hypoglycemia which she attributes to frequent corrections leading to stacking of insulin. Will adjust correction factor form 60-->50 and follow with her response. She will be following with [facility] throughout . -Advised to call with any [...] labs Assessment & Plan (01/30/2022 4:18 PM AGED OR DISABLED CARER): -Currently using Tandem insulin pump and Karina [...] urine microalbumin. She will meet with the educator senior clinical today and discuss technology for management of [...] on file Legal Sex Female 9:55 AM AGED OR DISABLED CARER Gender Identity Not on file Sexual Orientation [...] CDT Respiratory Rate 18 11/23/2021 4:33 PM AGED OR DISABLED CARER Oxygen Saturation 100% 11/23/2021 6:00 PM AGED OR DISABLED CARER Inhaled Oxygen Concentration - - Weight 96.7 [...] COMPREHENSIVE METABOLIC PANEL Routine 01/27/2023 1:08 PM AGED OR DISABLED CARER Type 1 diabetes mellitus without complication (HCC) Less than 8 weeks gestation of LIPID PANEL Routine 01/27/2023 1:08 PM AGED OR DISABLED CARER Type 1 diabetes mellitus without complication (HCC) Less than 8 weeks gestation of ALBUMIN CREATININE RATIO, URINE Routine 01/27/2023 1:08 PM AGED OR DISABLED CARER Type 1 diabetes mellitus without complication (HCC) Less than 8 weeks gestation of THYROID FUNCTION CASCADE Routine 01/27/2023 1:08 PM AGED OR DISABLED CARER Type 1 diabetes mellitus without complication (HCC) [...] reflex to free T4 (01/27/2023 1:08 PM AGED OR DISABLED CARER) TSH 1.920 0.450 - 4.500 uIU/mL [facility] - 01 Comment: No apparent thyroid disorder. Additional testing not indicated. In rare instances, Secondary Hypothyroidism as well as Subclinical Hypothyroidism have been reported in some patients with normal TSH values. Blood 01/27/2023 1:08 PM AGED OR DISABLED CARER 01/27/2023 Narrative [facility] - 01/28/2023 7:09 AM AGED OR DISABLED CARER Performed at: [facility] [id number] Transmitter Chief: Leandro Kaur PhD, Phone: [phone] Gita Cotton SPIDER ASSEMBLER LAB BLOOD ORDERABLES Final Result Performing Organization Address City/[facility] Co de Phone Number [facility] - * Albumin Creatinine Ratio, Urine (01/27/2023 1:08 PM AGED OR DISABLED CARER) Creatinine ur 52.5 Not Estab. mg/dL [facility] - 01 Microalbumin, ur <3.0 Not Estab. ug/mL [facility] - 01 Comment:Verified by repeat analysis Microalbumin/cre at ratio <6 0 - 29 mg/g creat [facility] - 01 Comment: Normal: 0 - 29 Moderately increased: 30 - 300 Severely increased: >300 Urine 01/27/2023 1:08 PM AGED OR DISABLED CARER 01/27/2023 Narrative [facility] - 01/28/2023 10:11 AM AGED OR DISABLED CARER Performed at: [place] [address] Transmitter Chief: Leandro Kaur PhD, Phone: [phone] Gita Cotton SPIDER ASSEMBLER LAB URINE ORDERABLES Final Result Performing Organization Address [facility] Co de Phone Number [facility] - * (ABNORMAL) Lipid panel (01/27/2023 1:08 PM AGED OR DISABLED CARER) Cholesterol 193 100 - 199 mg/dL [facility] - 01 Triglycerides 183(H) 0 - 149 mg/dL [facility] - 01 HDL Cholesterol 61 >39 mg/dL [facility] - 01 VLDL 31 5 - 40 mg/dL [facility] - 01 LDL, calculated 101(H) 0 - 99 mg/dL [facility] - 01 Blood 01/27/2023 1:08 PM AGED OR DISABLED CARER 01/27/2023 Narrative [facility] - 01/28/2023 7:09 AM AGED OR DISABLED CARER Performed at: [address] [id number] Transmitter Chief: Leandro Kaur PhD, Phone: [phone] Gita Cotton SPIDER ASSEMBLER LAB BLOOD ORDERABLES Final Result [facility] - 01 * (ABNORMAL) Comprehensive metabolic panel (01/27/2023 1:08 PM AGED OR DISABLED CARER) [facility] Glucose 45(L) 70 - 99 mg/dL [facility] [...] [facility] - 01 Blood 01/27/2023 1:08 PM AGED OR DISABLED CARER 01/27/2023 Narrative [facility] - 01/28/2023 7:09 AM AGED OR DISABLED CARER Performed at: - [address] [id number] Transmitter Chief: Leandro Kaur PhD, Phone: [phone] us Gita Cotton SPIDER ASSEMBLER LAB BLOOD ORDERABLES Final Result [facility] - 01 from Last 3 Months or Most Recently Relevant to Health Maintenance Insurance [employer] [facility] [employer] [facility] [place] WORK[place] COMPENSATION GENERIC Care Teams Fruit Or Nut Farmworker Relationship Specialty Start Date End Date Diomedes Pastor DO PCP - General Family Medicine 01/15/19
--- OUTSIDE RECORDS SUMMARY | 2025-08-26 14:11 | XMS_ITS | Clinical Summary ---
Author Organization [facility] [employer] Address [address] [facility] [place] [address] Care Team Providers Care Telephone Services Sales Representative Name Role Phone Jeffry Capps MD Primary Care Provider [phone] Gladys Reeves APRN-LOCOMOTIVE DRIVER Unavailable [phone] Source Comments [facility],non-owned Affiliates and Associated Physician Practices is amultiple site organization consisting of ambulatory clinics and hospital sitesin [place], [place], [place] and [place]. This disclosure is being madepursuant to the Care Everywhere program and may not contain all information available regarding this patient. Last updated 18.[facility] [employer] Allergies No known active allergies Medications * [...] 1 diabetes mellitus without complication Overview (01/18/2023): [facility] Endocrinology- see Care Everywhere -Currently using Omnipod insulin pump and Dexcom -A1C on 12/18/22 was 6.2% -Dexcom download indicates some hypoglycemia which she attributes to frequent corrections leading to stacking of insulin. Will adjust correction factor form 60-->50 and follow with her response. She will be following with [facility] throughout . 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 on file Not on file Not [...] HEPATITIS C ANTIBODY Routine 01/27/2023 1:09 PM BIOMEDICAL ENGINEERING TECHNICIAN High-risk in first trimester from Last 3 Months or Most Recently Relevant to Health Maintenance Results * HEMOGLOBIN A1C - POINT OF CARE (AMB) [facility] (07/21/2023 2:31 PM CDT) Hemoglobin A1c POCT 5.2 % [facility] [address] BLOOD SPECIMEN / Unknown 07/21/2023 2:31 PM CDT Juana Sharp AUTOMATIC QUILLING MACHINE OPERATOR-LOCOMOTIVE DRIVER LAB - POINT OF CARE OR DERABLES [place] [address], [facility] [phone] * (ABNORMAL) COMPREHENSIVE METABOLIC PANEL (07/15/2023 2:15 AM CDT) Glucose 144(H) 70 - 105 mg/dL 07/15/2023 3:28 AM CDT [facility] Sodium 138 136 - 145 mmol/L 07/15/2023 3:28 AM CDT [facility] Potassium 3.8 3.5 - 5.1 mmol/L 07/15/2023 3:28 AM CDT [facility] Chloride 111(H) 98 - 107 mmol/L 07/15/2023 3:28 AM CDT [facility] CO2 18(L) 22 - 29 mmol/L 07/15/2023 3:28 AM CDT [facility] Calcium 7.7(L) 8.4 - 10.4 mg/dL 07/15/2023 3:28 AM CDT [facility] Anion Gap 9 6 - 16 mmol/L 07/15/2023 3:28 AM CDT [facility] BUN 8 5.3 - 18.7 mg/dL 07/15/2023 3:28 AM CDT [facility] Creatinine 0.83 0.57 - 1.11 mg/dL 07/15/2023 3:28 AM CDT [facility] Alkaline Phosphatase 155(H) 40 - 150 U/L 07/15/2023 3:28 AM CDT [facility] ALT 22 0 - 55 U/L 07/15/2023 3:28 AM CDT [facility] AST 39(H) 5 - 34 U/L 07/15/2023 3:28 AM CDT [facility] Protein Total 5.0(L) 6.4 - 8.3 gm/dL 07/15/2023 3:28 AM CDT [facility] Albumin 2.1(L) 3.4 - 5.0 gm/dL 07/15/2023 3:28 AM CDT [facility] Bilirubin Total 1.1 0.2 - 1.2 mg/dL 07/15/2023 3:28 AM CDT [facility] eGFR by CKD-EPI >90 >=90 mL/min/1.7 3 m2 07/15/2023 3:28 AM CDT [facility] Blood BLOOD SPECIMEN / Unknown Venipuncture / Unknown 07/15/2023 2:15 AM CDT 07/15/2023 3:06 AM CDT Jah Walsh MD LAB - CHEMISTRY ORDERA BLES Final Result Performing Organization Address City/[facility]/ZIP Co de Phone Number [facility] [address] [place] [address] * (ABNORMAL) PROTEIN CREATININE RATIO URINE RANDOM PNL (07/14/2023 6:04 PM CDT) Pathologist [facility] Protein Urine 21.7(H) <11.9 mg/dL 07/14/2023 6:59 PM CDT [facility] Creatinine Urine 128.12 mg/dL 07/14/2023 6:59 PM CDT [facility] Protein/Creatin ine Ratio Urine 0.17 07/14/2023 6:59 PM CDT [facility] Urine URINE SPECIMEN OBTAINED BY CLEAN CATCH PROCEDURE / Unknown Collection / Unknown 07/14/2023 6:04 PM CDT 07/14/2023 6:37 PM CDT Jah Walsh MD LAB - URINE CHEMISTRY ORDERABLES Final Result [facility] [address] [place] [address] * HIV-1 HIV-2 ANTIBODY + HIV P24 AG PANEL (05/20/2023 2:37 PM CDT) Pathologist [facility] HIV Screen 4th Generation w Reflex Non Reactive Non Reactive [facility] INSURANCE BILL Comment: HIV Negative HIV-1/HIV-2 antibodies and HIV-1 p24 antigen were NOT detected. There is no laboratory evidence of HIV infection. Blood BLOOD SPECIMEN / Unknown 05/20/2023 2:37 PM CDT 05/20/2023 Narrative Resulting Agency Comment Lab Testing performed at: [facility] [address] [facility] [id number] [place] Juana Sharp AUTOMATIC QUILLING MACHINE OPERATOR-LOCOMOTIVE DRIVER LAB - CHEMISTRY ORDERA BLES Final Result Performing Organization Address City/[facility]/ZIP Co de Phone Number [facility] INSURANCE BILL [address] [place] [address] * EYE EXAM (02/28/2023) Anatomical Region Laterality Modality Other 02/28/2023 Narrative 02/28/2023 Ordered by an unspecified provider. us Scanned Document SCANNING ONLY Final Result * HEPATITIS C ANTIBODY (01/27/2023 1:09 PM BIOMEDICAL ENGINEERING TECHNICIAN) Hepatitis C Antibody Non Reactive Non Reactive [facility] INSURANCE BILL Comment: HCV antibody alone does not differentiate between previously resolved infection and active infection. Equivocal and Reactive HCV antibody results should be followed up with an HCV RNA test to support the diagnosis of active HCV infection. Blood BLOOD SPECIMEN / Unknown 01/27/2023 1:09 PM BIOMEDICAL ENGINEERING TECHNICIAN 01/27/2023 Narrative Resulting Agency Comment Lab Testing performed at: [facility] [address] [facility] [id number] us Chanel Vale MD LAB - CHEMISTRY ORDERA BLES Final Result Performing Organization Address [facility] Co de Phone Number [facility] INSURANCE BILL [address] [place] [address] from Last 3 Months or Most Recently Relevant to Health Maintenance Insurance [facility] MEDICAID Advance Directives * Full Code (Latest Code Status on File) Date Activated Date Inactivated Comments 07/17/2023 1:55 PM 07/18/2023 3:05 PM * Full Code Date Activated Date Inactivated Comments 07/14/2023 6:44 PM 07/15/2023 6:01 AM * Full Code Date Activated Date Inactivated Comments 06/22/2023 7:26 PM 06/23/2023 1:52 PM Care Teams Telephone Services Sales Representative Relationship Specialty Start Date End Date Jeffry Capps MD [address] [place] [phone] PCP - General 10/09/22 Gladys Reeves APRN-GUICHO [address] [address] PCP - Attributed-[employer] [place] 01/01/24
--- OUTSIDE RECORDS SUMMARY | 2025-08-26 14:11 | XMS_ITS | Encounter Summary ---
Author Organization [facility] Address [address] [place] [address] Phone Care Team Providers Care Senior Biostatistician Name Role Phone Pachecomeseretsánchezrowena Diomedes Goldberg Primary Care Provider [phone] Stephanie Valero MD Primary Care Provider Stephanie Ramirez MD Primary Care Provider Vincent Deleon MD Unavailable [phone] MD Unavailable Encounter Details Date Type Department Care Team (Late Contact Info) Description 01/20/2025 [facility] [address] [place] [address] Stephanie Valero MD Social History [...] Description 09/05/2025 4:30 PM CDT Office Visit [facility] - [facility] [address] [place] [address] Eliza Montoya APRN, PURCHASING AND FISCAL CLERK [address] [facility] [address] [place] [address] 11/08/2025 3:00 PM BAND SAW RUNNER Office Visit [facility] - Endocrinology - [place] [address] [place] [address] MD [address] [address] documented as of this encounter Visit Diagnoses Not on filedocumented in this encounter Care Teams Senior Biostatistician Relationship Specialty Start Date End Date Diomedes Pastor DO [address] [place] [address] PCP - General Family Medicine 12/08/18 01/23/25 Stephanie Valero MD [address] [place] [address] PCP - General Family Medicine 01/24/25 01/30/25 Stephanie Valero MD [address] [place] [address] PCP - General Family Medicine 02/11/25 Vincent Brumfield MD [address] [address] Consulting Physician General Surgery 02/11/[address] MD [address] [address] Consulting Physician Endocrinology 04/04/25 documented as of this encounter
--- OUTSIDE RECORDS SUMMARY | 2025-08-26 14:11 | XMS_ITS | Clinical Summary ---
Author Organization [facility] Address [address] [place] [address] Phone Care Team Providers Care Garde Manager Name Role Phone Stephanie Valero MD Primary Care Provider Vincent Deleon MD Unavailable Inez Lane MD Unavailable Allergies [...] 11/23/20 21 Active Lancets (OneTouch Delica Plus [id number]) [facility] USE LANCETS TO CHECK GLUCOSE 4 TIMES [...] 25 Active Insulin Disposable Pump (Omnipod 5 [id number] Pods Gen 5) Misc Every 48 hrs 45 Each 1 08/09/20 25 Active phentermine hcl (ADIPEX-P) 8 MG TabletIndicatio ns:Class 3 severe obesity due to excess calories with serious comorbidity and body mass index (BMI) of 40.0 to 44.9 in adult Take 1 Tablet by mouth daily. 30 Each 08/10/20 25 Active Insulin Disposable Pump (Omnipod 5 GdtV1P9 Intro Gen 5) Kit Use as directed [...] ued(Reord er) Insulin Disposable Pump (Omnipod 5 GqdR6I1 Intro Gen 5) Kit Every 48 hrs 1 Kit 08/09/20 025 Discontin ued(Reord er) Active Problems Problem Noted Date Diagnosed Date Type 1 diabetes mellitus without complication Encounters Date Type Department Care Team Description 08/09/2025 3:15 PM CDT Office Visit [facility] Medical Group - Endocrinology [facility] [address] [place] [address] MD Type 1 diabetes mellitus [...] Description 09/05/2025 4:30 PM CDT Office Visit [facility] - Family Medicine [facility] [address] [place] [address] Eliza Montoya, CRYPTOLOGIC SUPERVISOR, BEVERAGE INSPECTION MACHINE TENDER [address] [facility] [address] [place] [phone] 11/08/2025 3:00 PM SINGING TEACHER Office Visit [facility] Medical [facility] - Endocrinology [facility] [address] [place] [phone] MD [address] [facility] [address] [place] [address] [phone] (work) Health Maintenance Due Date Last Done [...] (COMPREHENSIVE METABOLIC PANEL) STAT 12/08/2018 11:45 AM SINGING TEACHER from Last 3 Months or Most Recently Relevant to Health Maintenance Results * (ABNORMAL) POCT GLYCOSYLATED HEMOGLOBIN (04/06/2025 9:24 AM CDT) HGB-A1C 7.0(A) 4 - 6 % Blood 04/06/2025 9:[address] MD POINT OF CARE TESTING (MANUAL) F inal Result * (ABNORMAL) CMP (12/08/2018 11:45 AM SINGING TEACHER) SODIUM 139 136 - 144 mmol/L 12/08/2018 12:22 PM [facility] POTASSIUM 4.0 3.5 - 5.1 mmol/L 12/08/2018 12:22 PM [facility] CHLORIDE 100 100 - 110 mmol/L 12/08/2018 12:22 PM [facility] CO2, VENOUS 23 22 - 32 mmol/L 12/08/2018 12:22 PM [facility] ANION GAP 20.0 8.0 - 20.0 mmol/L 12/08/2018 12:22 PM [facility] GLUCOSE 253(H) 70 - 99 mg/dL 12/08/2018 12:22 PM [facility] BUN 9 6 - 20 mg/dL 12/08/2018 12:22 PM [facility] CREATININE, BLOOD 0.78 0.60 - 1.10 mg/dL 12/08/2018 12:22 PM [facility] BUN/CREATININE RATIO 12 12 - 20 ratio 12/08/2018 12:22 PM [facility] TOTAL PROTEIN 7.8 6.0 - 8.3 g/dL 12/08/2018 12:22 PM [facility] ALBUMIN 4.6 3.5 - 5.2 g/dL 12/08/2018 12:22 PM [facility] Comment: The colormetric methods used for the determination of Albumin may lead to falsely elevated test results in patients suffering from renal failure or insufficiency due to interference with other proteins. A/G RATIO 1.4 1.0 - 2.0 12/08/2018 12:22 PM [facility] CALCIUM 9.4 8.9 - 10.3 mg/dL 12/08/2018 12:22 PM [facility] T BILI 0.5 <=1.2 mg/dL 12/08/2018 12:22 PM SINGING TEACHER [facility] SGOT (AST) 15 <=32 U/L 12/08/2018 12:22 PM [facility] SGPT (ALT) 17 <=33 U/L 12/08/2018 12:22 PM SINGING TEACHER [facility] ALKALINE PHOSPHATASE 70 35 - 105 U/L 12/08/2018 12:22 PM [facility] GFR, EST. NONAFRICAN >60 >=60 12/08/2018 12:22 PM SINGING TEACHER [facility] GFR, EST. >60 >=60 019 12:22 PM [facility] Comment: Creatinine Clearance is the preferred criteria for selecting drug dose adjustments in renally impaired patients. The GFR is provided as additional pertinent clinical information. GFR is reported in mL/min/1.73 sq m. Blood specimen (specimen) Venipuncture / Unknown 12/08/2018 11:45 AM SINGING TEACHER 12/08/2018 11:56 AM SINGING TEACHER Aidan Ramachandran MD CHEMISTRY ORDERABLES Final Result [facility] [address] [place] [address] from Last 3 Months or Most Recently Relevant to Health Maintenance Insurance MEDICAID [place] Care Teams Garde Manager Relationship Specialty Start Date End Date Stephanie Valero MD PCP - General Family Medicine 02/11/25 Vincent Brumfield MD #[address] [address] Consulting Physician General Surgery 02/11/[address] MD #[address] [address] Consulting Physician Endocrinology 04/04/25
--- OUTSIDE RECORDS SUMMARY | 2025-08-26 14:11 | XMS_ITS | Encounter Summary ---
Author Organization [facility] Address [address] [facility] [place] [address] Care Team Providers Care Registered Nurse Midwife Name Role Phone Jeffry Capps MD Primary Care Provider [phone] Jeffry Capps MD Unavailable [phone] Gini Lindsey MD Unavailable Gladys Reeves [facility] Unavailable [phone] Reason for Visit * Reason Onset Date Comments Med Question 06/05/2023 Encounter Details Date Type Department Care Team (Late st Contact Info) Description 06/05/2023 Telephone [facility] FLARE [facility] [address] [facility] [address] [place] [address] Chanel Vale MD [address] [place] [address] Med Question Social History Tobacco [...] Date Recorded PHQ2 TOTAL SCORE 0 04/08/2023 [facility] - Occupational [...] place to sleep or slept in a [place] health care facility (including now)? No 05/30/2023 Education Answer Date Recorded What is the highest level of school you have completed or the highest degree you have received? 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 from humalog to novolog (insurance no longer paying for the humalog) Please contact [phone] documented in this encounter Plan of Treatment Not on file documented as of this encounter Visit Diagnoses Not on filedocumented in this encounter Additional Health Concerns Infection Onset Date Last Indicated Resolved Time COVID-19 Confirmed 06/22/2023 06/22/2023 4:33 AM CDT documented as of this encounter Care Teams Registered Nurse Midwife Relationship Specialty Start Date End Date Jeffry Capps MD [address] [place] [phone] PCP - General 10/09/22 Jeffry Capps MD [address] [place] [address] PCP - Attributed-[employer] [place] 12/01/22 06/30/23 Gini Lindsey MD [address] [place] [address] PCP - Attributed-[employer] [place] 07/01/23 12/31/23 Gladys Reeves APRN-BORING MACHINE SET UP OPERATOR [employer]IG [address] [address] PCP - Attributed-[employer] [place] /12/24 documented as of this encounter
--- OUTSIDE RECORDS SUMMARY | 2025-08-26 14:11 | XMS_ITS | Encounter Summary ---
Author Organization [facility] Address [address] [place] [address] Phone Care Team Providers Care Welding Machine Operator Arc Name Role Phone Pachecomeseretsánchezrowena Diomedes Goldberg Primary Care Provider [phone] Stephanie Valero MD Primary Care Provider Stephanie Ramirez MD Primary Care Provider Vincent Deleon MD Unavailable Inez Lane MD Unavailable Encounter Details Date Type Department Care Team (Late Contact Info) Description 01/20/2025 Transcribe Orders [facility] Cardiac Head Rigger [address] [place] [address] Stephanie Valero MD Social History [...] Description 09/05/2025 4:30 PM CDT Office Visit [facility] Medical [facility] [place] [address] [place] [address] Eliza Montoya APRN, HEAD SUGAR REPROCESS OPERATOR [address] [facility] [address] [place] [address] 11/08/2025 3:00 PM TELEVISION PROGRAM DIRECTOR Office Visit [facility] - Endocrinology - [place] [address] [place] [address] MD [address] [address] documented as of this encounter Visit Diagnoses Not on filedocumented in this encounter Care Teams Welding Machine Operator Arc Relationship Specialty Start Date End Date Diomedes Pastor DO [address] [place] [address] PCP - General Family Medicine 12/08/18 01/23/25 Stephanie Valero MD [address] [place] [address] PCP - General Family Medicine 01/24/25 01/30/25 Stephanie Valero MD [address] [place] [address] PCP - General Family Medicine 02/11/25 Vincent Brumfield MD [address] [address] Consulting Physician General Surgery 02/11/[address] MD [address] [phone] Consulting Physician Endocrinology 04/04/25 documented as of this encounter
[2025-08-26 14:22] LABS: Strep Group A RT-PCR NOT DETECTED (Negative)
== END 2025-08-26 14:28 | disposition home or self-care (01) ==
PROVIDERS: Emergency Provider Emergency Medicine
DX: M26.609 Unspecified temporomandibular joint disorder, unspecified side (principal); E10.9 Type 1 diabetes mellitus without complications
CPT/HCPCS: 87651; 99283